=== PATIENT | female | born 1955 | race Caucasian/White ===

== ENCOUNTER → 2018-12-28 | Outpatient (CLI) | payer MEDICARE, BC ==
--- NOTE | 2018-12-28 10:18 | MR ---
EXAMINATION TYPE: MR brain wo/w con DATE OF EXAM: 12/28/2018 COMPARISON: None HISTORY: MS TECHNIQUE: Multiplanar, multisequence images of the brain and brainstem is performed without and with IV contras t, utilizing 7 mL intravenous Gadavist . FINDINGS: Diffusion weighted images demonstrate no evidence of a recent infarct or other diffusion ab normality. There is moderate Central dilation of ventricular system somewhat out of proportion to the sulci. Atr ophic changes with normal pressure hydrocephalus or hydrocephalus in the differential diagnosis. Thin homero of the corpus callosum. White matter: There are large areas of confluent abnormal signal surrounding both ventricles. There a re least to 35-40 focal lesions with the largest measuring approximately 1.2 cm in the right parietal lobe. There are no enhancing lesions. Midline structures demonstrate normal morphology. The craniocervical junction appears within normal limits. Post contrast images demonstrate no abnormal enhancement. The dural venous sinuses appear pa tent. Nasal septal deviation noted. Globes are intact. IMPRESSION: 1. Degenerative change with a greater central component correlate for normal pressure hydrocephalus o r hydrocephalus. 2. Diffuse nonspecific white matter changes. Differential diagnosis would include remote microvascula r ischemia as well as demyelinating disease. No enhancing lesions.
== END | disposition home or self-care (01) ==
LOC: RADMRIMAIN 08:39
PROVIDERS: ATTEND Psychiatry & Neurology Neurology
DX: G31.9 Degenerative disease of nervous system, unspecified (principal); R79.89 Other specified abnormal findings of blood chemistry; G35 Multiple sclerosis
CPT/HCPCS: 70553; A9585

== ENCOUNTER → 2019-01-03 | Outpatient (CLI) | payer MEDICARE, BC ==
--- NOTE | 2019-01-03 12:55 | CT ---
EXAMINATION TYPE: CT angio head neck DATE OF EXAM: 01/03/2019 HISTORY: Benign paroxysmal positional vertigo, MS COMPARISON: None CT DLP: 1307.40 mGycm. Automated Exposure Control for Dose Reduction was Utilized. TECHNIQUE: CTA scan of the neck is performed without and with IV Contrast, patient injected with 50 mL of Isovue 300, axial images are obtained, coronal and sagittal reformatted images are reviewed. Th ree-D reconstructed images are created on an independent workstation and reviewed. FINDINGS: Carotid/Vascular Structures: The transverse aorta, common carotid, innominate, left and right subclav brendan, left and right vertebral arteries are patent. Left vertebral artery is dominant. Internal and ex ternal carotid arteries are patent, no evidence stenosis. Vertebrobasilar system are patent. Anterior circulation patent. No evident embolus or aneurysm, no dissection. Other: Periventricular white matter shows patchy low attenuation. There is ventriculomegaly in accord ance with patient's atrophy. Cerebral vascular calcifications are present. IMPRESSION: Age-related changes of atrophy and probable chronic small vessel ischemia. If normal pre ssure hydrocephalus is suspected clinically then MRI may be of benefit.
== END | disposition home or self-care (01) ==
LOC: RADCTMAIN 08:52
PROVIDERS: ATTEND Psychiatry & Neurology Neurology
DX: G31.1 Senile degeneration of brain, not elsewhere classified (principal); H81.13 Benign paroxysmal vertigo, bilateral
CPT/HCPCS: 70496; 70498; Q9967

== ENCOUNTER 2019-07-28 17:16 | Emergency (ER) | payer BC, MEDICARE ==
[2019-07-28 18:34] VITALS: TEMP 98.6
[2019-07-28] MEDS ORDERED: SODIUM CHLORIDE 0.9% 500 ML 500 ML IV STA (19:13)
[2019-07-28] MEDS ORDERED: methylPREDNISolone SOD SUCCI 125 MG/2 ML VIAL IV STA ×2 (19:13→19:45)
[2019-07-28 19:43] LABS: Basophils # (A) 0.2 k/uL (0-0.2); Basophils % (A) 2 %; Eosinophils # (A) 0.1 k/uL (0-0.7); Eosinophils % (A) 1 %; HGB 14.6 gm/dL (11.4-16.0); Lymphocytes # (A) 0.2 k/uL (1.0-4.8); Lymphocytes % (A) 2 %; MCH 32.6 pg (25.0-35.0); MCHC 33.2 g/dL (31.0-37.0); MCV 98.3 fL (80.0-100.0); Mean Platelet Volume 10.1; Monocytes # (A) 0.4 k/uL (0-1.0); Monocytes % (A) 5 %; Neutrophils # (A) 7.8 k/uL (1.3-7.7); Neutrophils % (A) 89 %; Platelet Count 298 k/uL (150-450); RBC 4.48 m/uL (3.80-5.40); RDW 13.5 % (11.5-15.5); WBC 8.8 k/uL (3.8-10.6)
--- NOTE | 2019-07-28 19:48 | CT ---
EXAMINATION TYPE: CT brain wo con DATE OF EXAM: 07/28/2019 COMPARISON: 01/03/2019 HISTORY: Multiple sclerosis exacerbation, dizziness. CT DLP: 1096.4 mGycm Automated exposure control for dose reduction was used. There is cerebral cortical atrophy. There is some enlargement of the ventricles. There is mild hypode nsity in the periventricular white matter. Calvarium is intact. There is no mass effect nor midline s hift. There is no sign of intracranial hemorrhage. There is mild mucosal thickening in the sphenoid sinus. IMPRESSION: Cerebral atrophy. White matter hypodensity consistent with small vessel ischemia or demyelinating dis ease. No acute intracranial abnormality. Mild sphenoid sinusitis. No change compared to old exam.
[2019-07-28 19:57] LABS: Albumin 4.5 g/dL (3.5-5.0); Calcium 9.3 mg/dL (8.4-10.2); Magnesium 2.1 mg/dL (1.6-2.3); Phosphorus 3.6 mg/dL (2.5-4.5); Potassium 4.5 mmol/L (3.5-5.1); Total Bilirubin 0.4 mg/dL (0.2-1.3); Total Protein 7.4 g/dL (6.3-8.2)
[2019-07-28] MEDS ORDERED: SODIUM CHLORIDE 0.9% IVPB ONE (20:15)
[2019-07-28] MEDS ORDERED: METHYLPREDNISOLONE SOD SUCC IVPB ONE (20:15)
--- NOTE | 2019-07-28 21:09 | ED ---
General Adult HPI - General Chief complaint: Recheck/Abnormal Lab/Rx Stated complaint: MS flare up Time Seen by Provider: 07/28/19 18:55 Source: patient, RN notes reviewed, old records reviewed Mode of arrival: wheelchair Limitations: no limitations - History of Present Illness Initial comments: 63year-old female patient with past history significant for multiple sclerosis presents to the emergency department for she believes is a exacerbation of multiple sclerosis. Patient reports that since last night she has had dizziness, also reports that she feels as if her lower extremities are weaker than normal having difficulty walking. Patient does have some baseline urinary incontinence issues she believes this is gotten worse with the last 2 days. D enies any chest pain or shortness breath. Denies any pain at this time or any headache. Denies any other complaints at this time. Systemic: Pt denies fatigue, fever/chills, rash. Pt denies weakness, night sweats, weight loss. Neuro: Pt denies headache, visual disturbances, syncope or pre-syncope. HEENT: Pt denies ocular discharge or irritation, otalgia, rhinorrhea, pharyngitis or notable lymphadenopathy. Cardiopulmonary: Pt denies chest pain, SOB, heart palpitations, dyspnea on exertion. Abdominal/GI: Pt denies abdominal pain, n/v/d. : Pt denies dysuria, burning w/ urination, frequency/urgency. Denies new onset urinary or bowel incontinence. MSK: Pt denies myalgia, loss of strength or function in extremities. Neuro: Pt denies new onset weakness, paresthesias. - Related Data Home Medications Medication Instructions Recorded Confirmed Aspirin [Adult Low Dose Aspirin EC] 81 mg PO DAILY 06/07/17 06/09/17 Ampyra 10 mg PO DAILY 06/08/17 06/09/17 Cholecalciferol [Vitamin D3] 1,000 unit PO DAILY 06/08/17 06/09/17 Allergies Allergy/AdvReac Type Severity Reaction Status Date / Time No Known Allergies Allergy Verified 07/28/19 23:19 Review of Systems ROS Statement: Those systems with pertinent positive or pertinent negative responses have been documented in the HPI. ROS Other: All systems not noted in ROS Statement are negative. Past Medical History Past Medical History: Memory Impairment Additional Past Medical History / Comment(s): MULTIPLE SCLEROSIS History of Any Multi-Drug Resistant Organisms: None Reported Past Surgical History: Hysterectomy, Tonsillectomy Past Anesthesia/Blood Transfusion Reactions: No Reported Reaction Past Psychological History: No Psychological Hx Reported Smoking Status: Never smoker Past Alcohol Use History: None Reported Past Drug Use History: None Reported - Past Family History Mother Family Medical History: Cancer Additional Family Medical History / Comment(s): HODGKINS LYMPHOMA Father Family Medical History: Myocardial Infarction (ME) General Exam - General Exam Comments Initial Comments: Constitutional: NAD, AOX3, Pt has pleasant affect. HEENT: NC/AT, trachea midline, neck supple, no lymphadenopathy. Posterior pharynx non erythematous, without exudates. External ears appear normal, without discharge. Mucous membranes moist. Eyes PERRLA, EOM intact. There is no scleral icterus. No pallor noted. Cardiopulmonary: RRR, no murmurs, rubs or gallops, no JVD noted. Lungs CTAB in anterior and posterior moura. No peripheral edema. Abdominal exam: Abdomen soft and non-distended. Abdomen non-tender to palpation in all 4 quadrants. Bowel sounds active in LLQ. No hepatosplenomegaly. No ecchymosis Neuro: CN II-XII intact. No nuchal rigidity. No raccon eyes, no blank sign, no hemotympanum. No cervical spinal tenderness. NIH 0. MSK: 3/5 strength right lower extremity, 5 out of 5 strength left lower extremity upper extremities bilaterally. No posterior calf tenderness bilaterally, homans sign negative bilaterally. Posterior tibialis and radial pulse +2 bilaterally. Sensation intact in upper and lower extremities. Full active ROM in upper and lower extremities, 5/5 stregnth. Limitations: no limitations Course Vital Signs 07/28/19 18:31 Temperature 98.6 F Pulse Rate 103 H Respiratory 18 Rate Blood Pressure 170/83 O2 Sat by Pulse 97 Oximetry Medical Decision Making - Medical Decision Making 63-year-old female patient presents with history of multiple sclerosis presents to ED for which she believes is multiple scars exacerbation the last 24 hours. Patient has residual right lower extremity weakness presented this is worse. Having difficulty ambulating. Also complaining of some mild dizziness. Patient vital signs slight mild hypertension otherwise stable. Physical exam displayed 3-5 strength right lower extremity. Neurologic exam shows within normal limits. NIH is 0. Laboratory investigations are overall non-impressive. EKG nonischemic. CT of brain displayed cerebral atrophy, white matter hypodensity consistent with small vessel ischemia demyelinating disease. No acute intracranial abnormality. Mild sphenoid sinus sinusitis. No change compared to old exam. Patient came to have some difficulty and waning to his right lower extremity weakness. believes that he had difficulty inpatient activities of daily. Patient admitted for multiple sclerosis exacerbation. Started on antibiotics for sinusitis as well. Case discussed initially with Dr. Ivey and completed with Dr. Gutierrez. Multiple times to reach patient's neurologist were successful after decision of admission was made. Recommendation by Dr. Woods was 500 mg Solu-Medrol twice a day. - Lab Data Result diagrams: 07/28/19 19:07 07/28/19 19:07 Lab Results 07/28/19 07/28/19 07/28/19 Range/Units 19:07 19:07 19:07 WBC 8.8 (3.8-10.6) k/uL RBC 4.48 (3.80-5.40) m/uL Hgb 14.6 (11.4-16.0) gm/dL Hct 44.0 (34.0-46.0) % MCV 98.3 (80.0-100.0) fL MCH 32.6 (25.0-35.0) pg MCHC 33.2 (31.0-37.0) g/dL RDW 13.5 (11.5-15.5) % Plt Count 298 (150-450) k/uL Neutrophils % 89 % Lymphocytes % 2 % Monocytes % 5 % Eosinophils % 1 % Basophils % 2 % Neutrophils # 7.8 H (1.3-7.7) k/uL Lymphocytes # 0.2 L (1.0-4.8) k/uL Monocytes # 0.4 (0-1.0) k/uL Eosinophils # 0.1 (0-0.7) k/uL Basophils # 0.2 (0-0.2) k/uL Sodium 143 (137-145) mmol/L Potassium 4.5 (3.5-5.1) mmol/L Chloride 108 H (98-107) mmol/L Carbon Dioxide 28 (22-30) mmol/L Anion Gap 7 mmol/L BUN 25 H (7-17) mg/dL Creatinine 0.96 (0.52-1.04) mg/dL Est GFR (CKD-EPI)AfAm 73 (>60 ml/min/1.73 sqM) Est GFR (CKD-EPI)NonAf 63 (>60 ml/min/1.73 sqM) Glucose 105 H (74-99) mg/dL Calcium 9.3 (8.4-10.2) mg/dL Phosphorus 3.6 (2.5-4.5) mg/dL Magnesium 2.1 (1.6-2.3) mg/dL Total Bilirubin 0.4 (0.2-1.3) mg/dL AST 29 (14-36) U/L ALT 25 (4-34) U/L Alkaline Phosphatase 142 H (38-126) U/L Troponin I <0.012 (0.000-0.034) ng/mL Total Protein 7.4 (6.3-8.2) g/dL Albumin 4.5 (3.5-5.0) g/dL Disposition Clinical Impression: Multiple sclerosis exacerbation, Sinusitis Disposition: ADMITTED IP TO THIS HOSP Condition: Serious Is patient prescribed a controlled substance at d/c from ED?: No Referrals: Georgi Hernandez DO [Primary Care Provider] - 1-2 days
[2019-07-28] MEDS ORDERED: cefTRIAXone IN SWFI 1,000 MG/10 ML SYRINGE IVP STA (22:56)
[2019-07-28] MEDS ORDERED: ACETAMINOPHEN TAB 325 MG TAB PO PRN (22:57)
[2019-07-28] MEDS ORDERED: NALOXONE 0.4 MG/ML 1 ML VIAL IV PRN (22:57)
[2019-07-28] MEDS ORDERED: SODIUM CHLORIDE 0.9% 1,000 ML IV SCH (23:00)
[2019-07-28 23:23] VITALS: RESP 16
[2019-07-28 23:27] VITALS: BP 142/79; PULSE 80
[2019-07-29 00:06] LABS: Appearance,Urine Cloudy (Clear); Bacteria,Urine Few /hpf; Bilirubin,Urine Negative (Negative); Blood,Urine Trace (Negative); Color,Urine Light Yellow; Glucose,Urine (UA) Negative (Negative); Ketones,Urine 1+ (Negative); Leukocyte Esterase,Urine Small (Negative); Mucus,Urine Rare /hpf; Nitrite,Urine Positive (Negative); PH, Urine 6.5 (5.0-8.0); Protein,Urine Negative (Negative); RBC,Urine 3 /hpf (0-5); Specific Gravity,Urine 1.016 (1.001-1.035); Squamous Epithelial Cell,Urine 1 /hpf (0-4); Urobilinogen,Urine <2.0 mg/dL (<2.0); WBC,Urine 13 /hpf (0-5)
[2019-07-29] MEDS ORDERED: CEPHALEXIN 500 MG CAP PO STA (00:13)
[2019-07-29] MEDS ORDERED: CEPHALEXIN 500MG STARTER PACK 4 CAP BTL PO STA (00:13)
--- NOTE | 2019-07-29 00:13 | ED ---
Medical Decision Making - Medical Decision Making 62-year-old female patient presents ED for possible MS exacerbation. Patient was initially planned for [facility]. However patient is ambulatory without difficulty this time, requesting discharge. Contact was made with physician at patient neurologist office, however that time plan was for admission. She did recommend checking urine to ensure the urinary tract infection was not causing pseudo exacerbation. UA displayed nitrate positive urinary tract infection. CT brain displayed mild sinusitis, patient is not having symptoms from this. Offered patient and to recontact the ground's office they declined. Requesting discharge at this time. Patient discharged with prednisone and Keflex will follow-up with neurologist tomorrow. Return to ER if condition worsens. - Lab Data Result diagrams: 07/28/19 19:07 07/28/19 19:07 Lab Results 07/28/19 07/28/19 07/28/19 Range/Units 19:07 19:07 19:07 WBC 8.8 (3.8-10.6) k/uL RBC 4.48 (3.80-5.40) m/uL Hgb 14.6 (11.4-16.0) gm/dL Hct 44.0 (34.0-46.0) % MCV 98.3 (80.0-100.0) fL MCH 32.6 (25.0-35.0) pg MCHC 33.2 (31.0-37.0) g/dL RDW 13.5 (11.5-15.5) % Plt Count 298 (150-450) k/uL Neutrophils % 89 % Lymphocytes % 2 % Monocytes % 5 % Eosinophils % 1 % Basophils % 2 % Neutrophils # 7.8 H (1.3-7.7) k/uL Lymphocytes # 0.2 L (1.0-4.8) k/uL Monocytes # 0.4 (0-1.0) k/uL Eosinophils # 0.1 (0-0.7) k/uL Basophils # 0.2 (0-0.2) k/uL Sodium 143 (137-145) mmol/L Potassium 4.5 (3.5-5.1) mmol/L Chloride 108 H (98-107) mmol/L Carbon Dioxide 28 (22-30) mmol/L Anion Gap 7 mmol/L BUN 25 H (7-17) mg/dL Creatinine 0.96 (0.52-1.04) mg/dL Est GFR (CKD-EPI)AfAm 73 (>60 ml/min/1.73 sqM) Est GFR (CKD-EPI)NonAf 63 (>60 ml/min/1.73 sqM) Glucose 105 H (74-99) mg/dL Calcium 9.3 (8.4-10.2) mg/dL Phosphorus 3.6 (2.5-4.5) mg/dL Magnesium 2.1 (1.6-2.3) mg/dL Total Bilirubin 0.4 (0.2-1.3) mg/dL AST 29 (14-36) U/L ALT 25 (4-34) U/L Alkaline Phosphatase 142 H (38-126) U/L Troponin I <0.012 (0.000-0.034) ng/mL Total Protein 7.4 (6.3-8.2) g/dL Albumin 4.5 (3.5-5.0) g/dL Urine Color Urine Appearance (Clear) Urine pH (5.0-8.0) Ur Specific [place] (1.001-1.035) Urine Protein (Negative) Urine Glucose (UA) (Negative) Urine Ketones (Negative) Urine Blood (Negative) Urine Nitrite (Negative) Urine Bilirubin (Negative) Urine Urobilinogen (<2.0) mg/dL Ur Leukocyte Esterase (Negative) Urine RBC (0-5) /hpf Urine WBC (0-5) /hpf Ur Squamous Epith Cells (0-4) /hpf Urine Bacteria (None) /hpf Urine Mucus (None) /hpf 07/28/19 Range/Units 23:35 WBC (3.8-10.6) k/uL RBC (3.80-5.40) m/uL Hgb (11.4-16.0) gm/dL Hct (34.0-46.0) % MCV (80.0-100.0) fL MCH (25.0-35.0) pg MCHC (31.0-37.0) g/dL RDW (11.5-15.5) % Plt Count (150-450) k/uL Neutrophils % % Lymphocytes % % Monocytes % % Eosinophils % % Basophils % % Neutrophils # (1.3-7.7) k/uL Lymphocytes # (1.0-4.8) k/uL Monocytes # (0-1.0) k/uL Eosinophils # (0-0.7) k/uL Basophils # (0-0.2) k/uL Sodium (137-145) mmol/L Potassium (3.5-5.1) mmol/L Chloride (98-107) mmol/L Carbon Dioxide (22-30) mmol/L Anion Gap mmol/L BUN (7-17) mg/dL Creatinine (0.52-1.04) mg/dL Est GFR (CKD-EPI)AfAm (>60 ml/min/1.73 sqM) Est GFR (CKD-EPI)NonAf (>60 ml/min/1.73 sqM) Glucose (74-99) mg/dL Calcium (8.4-10.2) mg/dL Phosphorus (2.5-4.5) mg/dL Magnesium (1.6-2.3) mg/dL Total Bilirubin (0.2-1.3) mg/dL AST (14-36) U/L ALT (4-34) U/L Alkaline Phosphatase (38-126) U/L Troponin I (0.000-0.034) ng/mL Total Protein (6.3-8.2) g/dL Albumin (3.5-5.0) g/dL Urine Color Light Yellow Urine Appearance Cloudy H (Clear) Urine pH 6.5 (5.0-8.0) Ur Specific [place] 1.016 (1.001-1.035) Urine Protein Negative (Negative) Urine Glucose (UA) Negative (Negative) Urine Ketones 1+ H (Negative) Urine Blood Trace H (Negative) Urine Nitrite Positive H (Negative) Urine Bilirubin Negative (Negative) Urine Urobilinogen <2.0 (<2.0) mg/dL Ur Leukocyte Esterase Small H (Negative) Urine RBC 3 (0-5) /hpf Urine WBC 13 H (0-5) /hpf Ur Squamous Epith Cells 1 (0-4) /hpf Urine Bacteria Few H (None) /hpf Urine Mucus Rare H (None) /hpf Disposition Clinical Impression: Multiple sclerosis exacerbation, UTI (urinary tract infection) Disposition: HOME SELF-CARE Condition: Stable Instructions (If sedation given, give patient instructions): Multiple Sclerosis (DC), Urinary Tract Infection in Women (ED) Additional Instructions: Take antibiotics as directed. Take steroids as directed. Follow up with all this and primary care provider tomorrow. Return to ER if condition worsens. Prescriptions: Cephalexin [Keflex] 500 mg PO Q6HR 7 Days #28 cap predniSONE 50 mg PO DAILY #5 tab Is patient prescribed a controlled substance at d/c from ED?: No Referrals: Georgi Hernandez DO [Primary Care Provider] - 1-2 days
--- NOTE | 2019-07-29 00:16 | ED ---
Medical Decision Making - Lab Data Result diagrams: 07/28/19 19:07 07/28/19 19:07 Lab Results 07/28/19 07/28/19 07/28/19 Range/Units 19:07 19:07 19:07 WBC 8.8 (3.8-10.6) k/uL RBC 4.48 (3.80-5.40) m/uL Hgb 14.6 (11.4-16.0) gm/dL Hct 44.0 (34.0-46.0) % MCV 98.3 (80.0-100.0) fL MCH 32.6 (25.0-35.0) pg MCHC 33.2 (31.0-37.0) g/dL RDW 13.5 (11.5-15.5) % Plt Count 298 (150-450) k/uL Neutrophils % 89 % Lymphocytes % 2 % Monocytes % 5 % Eosinophils % 1 % Basophils % 2 % Neutrophils # 7.8 H (1.3-7.7) k/uL Lymphocytes # 0.2 L (1.0-4.8) k/uL Monocytes # 0.4 (0-1.0) k/uL Eosinophils # 0.1 (0-0.7) k/uL Basophils # 0.2 (0-0.2) k/uL Sodium 143 (137-145) mmol/L Potassium 4.5 (3.5-5.1) mmol/L Chloride 108 H (98-107) mmol/L Carbon Dioxide 28 (22-30) mmol/L Anion Gap 7 mmol/L BUN 25 H (7-17) mg/dL Creatinine 0.96 (0.52-1.04) mg/dL Est GFR (CKD-EPI)AfAm 73 (>60 ml/min/1.73 sqM) Est GFR (CKD-EPI)NonAf 63 (>60 ml/min/1.73 sqM) Glucose 105 H (74-99) mg/dL Calcium 9.3 (8.4-10.2) mg/dL Phosphorus 3.6 (2.5-4.5) mg/dL Magnesium 2.1 (1.6-2.3) mg/dL Total Bilirubin 0.4 (0.2-1.3) mg/dL AST 29 (14-36) U/L ALT 25 (4-34) U/L Alkaline Phosphatase 142 H (38-126) U/L Troponin I <0.012 (0.000-0.034) ng/mL Total Protein 7.4 (6.3-8.2) g/dL Albumin 4.5 (3.5-5.0) g/dL Urine Color Urine Appearance (Clear) Urine pH (5.0-8.0) Ur Specific [place] (1.001-1.035) Urine Protein (Negative) Urine Glucose (UA) (Negative) Urine Ketones (Negative) Urine Blood (Negative) Urine Nitrite (Negative) Urine Bilirubin (Negative) Urine Urobilinogen (<2.0) mg/dL Ur Leukocyte Esterase (Negative) Urine RBC (0-5) /hpf Urine WBC (0-5) /hpf Ur Squamous Epith Cells (0-4) /hpf Urine Bacteria (None) /hpf Urine Mucus (None) /hpf 07/28/19 Range/Units 23:35 WBC (3.8-10.6) k/uL RBC (3.80-5.40) m/uL Hgb (11.4-16.0) gm/dL Hct (34.0-46.0) % MCV (80.0-100.0) fL MCH (25.0-35.0) pg MCHC (31.0-37.0) g/dL RDW (11.5-15.5) % Plt Count (150-450) k/uL Neutrophils % % Lymphocytes % % Monocytes % % Eosinophils % % Basophils % % Neutrophils # (1.3-7.7) k/uL Lymphocytes # (1.0-4.8) k/uL Monocytes # (0-1.0) k/uL Eosinophils # (0-0.7) k/uL Basophils # (0-0.2) k/uL Sodium (137-145) mmol/L Potassium (3.5-5.1) mmol/L Chloride (98-107) mmol/L Carbon Dioxide (22-30) mmol/L Anion Gap mmol/L BUN (7-17) mg/dL Creatinine (0.52-1.04) mg/dL Est GFR (CKD-EPI)AfAm (>60 ml/min/1.73 sqM) Est GFR (CKD-EPI)NonAf (>60 ml/min/1.73 sqM) Glucose (74-99) mg/dL Calcium (8.4-10.2) mg/dL Phosphorus (2.5-4.5) mg/dL Magnesium (1.6-2.3) mg/dL Total Bilirubin (0.2-1.3) mg/dL AST (14-36) U/L ALT (4-34) U/L Alkaline Phosphatase (38-126) U/L Troponin I (0.000-0.034) ng/mL Total Protein (6.3-8.2) g/dL Albumin (3.5-5.0) g/dL Urine Color Light Yellow Urine Appearance Cloudy H (Clear) Urine pH 6.5 (5.0-8.0) Ur Specific [place] 1.016 (1.001-1.035) Urine Protein Negative (Negative) Urine Glucose (UA) Negative (Negative) Urine Ketones 1+ H (Negative) Urine Blood Trace H (Negative) Urine Nitrite Positive H (Negative) Urine Bilirubin Negative (Negative) Urine Urobilinogen <2.0 (<2.0) mg/dL Ur Leukocyte Esterase Small H (Negative) Urine RBC 3 (0-5) /hpf Urine WBC 13 H (0-5) /hpf Ur Squamous Epith Cells 1 (0-4) /hpf Urine Bacteria Few H (None) /hpf Urine Mucus Rare H (None) /hpf Disposition Clinical Impression: Multiple sclerosis exacerbation, UTI (urinary tract infection) Disposition: HOME SELF-CARE Condition: Stable Instructions (If sedation given, give patient instructions): Urinary Tract Infection in Women (ED), Multiple Sclerosis (DC) Additional Instructions: Take antibiotics as directed. Take steroids as directed. Follow up with neurologist and primary care provider tomorrow. Return to ER if condition worsens. Prescriptions: Cephalexin [Keflex] 500 mg PO Q6HR 7 Days #28 cap predniSONE 50 mg PO DAILY #5 tab Is patient prescribed a controlled substance at d/c from ED?: No Referrals: Georgi Hernandez DO [Primary Care Provider] - 1-2 days
== END 2019-07-29 00:57 | disposition home or self-care (01) ==
LOC: EC 17:16 → 6NMEDSUR 23:07 → UNDOADMOB 23:07 → EC 07-29 00:57
DX: G35 Multiple sclerosis (principal); J32.3 Chronic sphenoidal sinusitis; N39.0 Urinary tract infection, site not specified; G31.9 Degenerative disease of nervous system, unspecified; Z79.899 Other long term (current) drug therapy; Z79.82 Long term (current) use of aspirin
CPT/HCPCS: 99284; 96365; 96375 ×2; 96361; 36415; 93005; 80053; 83735; 84100; 84484; 85025; 81001; 70450; J2930 ×2; J0696

== ENCOUNTER 2020-10-11 07:29 | Emergency (ER) | payer MEDICARE ==
[2020-10-11 07:35] VITALS: BP 133/63; PULSE 109; RESP 18; TEMP 99
[2020-10-11] MEDS ORDERED: LIDOCAINE 1% INJ 10MG/ML (20 ML MDV) SQ ONE (07:54)
[2020-10-11] MEDS ORDERED: DIPH,PERTUS(ACELL)TETVAC-LF 0.5 ML VIAL IM ONE (07:54)
[2020-10-11] MEDS ORDERED: ceFAZolin 1,000 MG VIAL (IM USE) IM STA (08:11)
--- NOTE | 2020-10-11 08:39 | XR ---
EXAMINATION TYPE: XR elbow complete RT DATE OF EXAM: 10/11/2020 CLINICAL HISTORY: pain TECHNIQUE: Frontal, lateral and oblique images of the right elbow are obtained. COMPARISON: None. FINDINGS: There is no acute fracture/dislocation evident of the elbow. No abnormal fat pad signs ar e seen. Soft tissue ulcerations seen dorsally. IMPRESSION: There is no acute fracture or dislocation of the elbow. ICD 10 NO FRACTURE, INITIAL EVALUATION
[2020-10-11] MEDS ORDERED: HYDROcodone/APAP 5-325MG 1 EACH TAB PO STA (08:52)
--- NOTE | 2020-10-11 08:55 | CT ---
EXAMINATION TYPE: CT brain diana miramontes con DATE OF EXAM: 10/11/2020 COMPARISON: 07/28/2019 HISTORY: Fall CT DLP: 1457.[address] of the brain was performed. The ventricles, basal cisterns and sulci overlying the cerebral convexities demonstrate moderate enla rgement. There is no evidence for intracranial hemorrhage or sulcal effacement. There is decreased attenuatio n about the periventricular white matter and deep white matter of both cerebral hemispheres, compatib le with chronic small vessel ischemia. No mass effects are seen. If symptoms persist consider MRI. Osseous calvarium is intact. IMPRESSION: 1. Age related atrophic and chronic small vessel ischemic change without acute intracranial process seen at this time. CT Cervical Spine: Unenhanced CT of the cervical spine was performed with bone and soft tissue window settings submitted . Coronal and sagittal reconstruction is obtained. There is normal alignment and prevertebral soft tissues. No evidence for acute cervical fracture . Scattered degenerative disc disease and spondylosis. Biapical scarring. IMPRESSION: 1. No evidence for acute fracture or subluxation of the cervical spine.
[2020-10-11] MEDS ORDERED: BACITRACIN OINT 1 EACH PACKET TOPICAL ONE (09:42)
--- NOTE | 2020-10-11 09:44 | ED ---
Wound/Laceration HPI - General Chief Complaint: Wound/Laceration Stated Complaint: Fall, R arm injury Time Seen by Provider: 10/11/20 07:39 Source: patient, family Mode of arrival: wheelchair Limitations: no limitations - History of Present Illness Initial Comments: 65-year-old female presenting for chief complaint of fall with right elbow laceration. Patient states that she has MS and often trips when she walks. She states she tripped falling she states she didn't believe she had her head but mostly caught her elbow. She states she sustained a laceration. She states she can fully range without difficulty at the right elbow but her felt that the laceration needed repair he applied a bandage and presents emergency room for evaluation. Patient states that she did hit her head, she denies loss of consciousness or use of anticoagulation therapy Patient is unsure of her last tetanus. She denies any nausea vomiting visual changes headache dizziness weakness or sensation deficits. She denies any neck pain. She denies any other areas of extremity injury or pain. Upon arrival patient appears well nontoxic in no acute distress - Related Data Home Medications Medication Instructions Recorded Confirmed Aspirin EC [Ecotrin] 325 mg PO DAILY 07/28/19 07/28/19 Dalfampridine [Dalfampridine ER] 10 mg PO Q12H 07/28/19 07/28/19 Multivitamins, Thera [Multivitamin 1 tab PO DAILY 07/28/19 07/28/19 (formulary)] Oxybutynin Chloride [Oxybutynin 15 mg PO DAILY 07/28/19 07/28/19 Chloride ER] Previous Rx's Medication Instructions Recorded Cephalexin [Keflex] 500 mg PO Q6HR 7 Days #28 cap 07/29/19 predniSONE 50 mg PO DAILY #5 tab 07/29/19 Cephalexin [Keflex] 500 mg PO Q8HR 7 Days #21 cap 10/11/20 Allergies Allergy/AdvReac Type Severity Reaction Status Date / Time No Known Allergies Allergy Verified 07/28/19 23:19 Review of Systems ROS Statement: Those systems with pertinent positive or pertinent negative responses have been documented in the HPI. ROS Other: All systems not noted in ROS Statement are negative. Past Medical History Past Medical History: Memory Impairment Additional Past Medical History / Comment(s): MULTIPLE SCLEROSIS History of Any Multi-Drug Resistant Organisms: None Reported Past Surgical History: Hysterectomy, Tonsillectomy Past Anesthesia/Blood Transfusion Reactions: No Reported Reaction Past Psychological History: No Psychological Hx Reported Smoking Status: Never smoker Past Alcohol Use History: None Reported Past Drug Use History: None Reported - Past Family History Mother Family Medical History: Cancer Additional Family Medical History / Comment(s): HODGKINS LYMPHOMA Father Family Medical History: Myocardial Infarction ([place]) General Exam - General Exam Comments Initial Comments: General: The patient is awake and alert, in no distress Eye: +3 mm pupils are equal, round and reactive to light, extra-ocular movements are intact. No nystagmus. There is normal conjunctiva bilaterally. No signs of icterus. Ears, nose, mouth and throat: There are moist mucous membranes and no oral lesions. Neck: The neck is supple, there is no tenderness or JVD. No midline tenderness to palpation of the cervical spine Cardiovascular: There is a regular rate and rhythm. No murmur, rub or gallop is appreciated. Respiratory: Lungs are clear to auscultation, respirations are non-labored, breath sounds are equal. No wheezes, stridor, rales, or rhonchi. Gastrointestinal: Soft, non-distended, non-tender abdomen without masses or organomegaly noted. There is no rebound or guarding present. Musculoskeletal: Normal ROM of the elbows and shoulder/wrists b/l-pain at only laceration site with ROM fo the right elbow. Strength 5/5. Sensation intact. radial and DP pulses equal bilaterally 2+. Neurological: A&O x 3. CN II-XII intact, There are no obvious motor or sensory deficits. Coordination appears grossly intact. Speech is normal. Skin: Skin is warm and dry and no rashes or lesions are noted. Psychiatric: Cooperative, appropriate mood & affect, normal judgment. Limitations: no limitations Course Vital Signs 10/11/20 07:30 Temperature 99.0 F Pulse Rate 109 H Respiratory 18 Rate Blood Pressure 133/63 O2 Sat by Pulse 97 Oximetry Procedures - Laceration Laceration #1 Consent Obtained: verbal consent Indication: laceration Site: upper extremity Size (cm): 6 Description: flap, irregular Depth: simple, single layer Anesthetic Used: lidocaine 1% Anesthesia Technique: local infiltration Amount (mls): 2 Pre-repair: wound explored, irrigated extensively, deep structures intact Type of Sutures: nylon Size of Sutures: 4-0 Number of Sutures: 11 Technique: simple, interrupted Patient Tolerated Procedure: well, no complications Medical Decision Making - Medical Decision Making IM antibiotics initiated as patient has laceration site over joint until confirmed no open fracture. X-ray revealed no acute fracture at laceration site. Area was irrigated extensively. Tetanus was updated. Wound edges were approximated using 11 4. 0 nylon sutures. Patient tolerated procedure well. As patient states she did hit her head CT of brain was obtained CT without contrast of the head and cervical spine revealed no acute intracranial or cervical spine process. At this time I feel patient is stable for discharge with outpatient primary care follow-up and return for suture removal. Patient is agreeable to this care plan is aware of the signs of infection which were discussed-- pt started on prophylactic antibiotics. Sling for comfort Disposition Clinical Impression: Laceration of elbow, right, Right elbow pain, Fall Disposition: HOME SELF-CARE Condition: Good Instructions (If sedation given, give patient instructions): Care For Your Stitches (ED), Laceration (ED) Additional Instructions: Please use medication as discussed. Please follow-up with family doctor in the next 2 days, please return for suture removal in 7-10 days. Please return to emergency room if the symptoms increase or worsen or for any other concerns. Prescriptions: Cephalexin [Keflex] 500 mg PO Q8HR 7 Days #21 cap Is patient prescribed a controlled substance at d/c from ED?: No Referrals: Georgi Hernandez DO [Primary Care Provider] - 1-2 days Time of Disposition: 09:44
== END 2020-10-11 10:13 | disposition home or self-care (01) ==
LOC: EC 07:29
DX: S51.011A Laceration without foreign body of right elbow, initial encounter (principal); Z79.899 Other long term (current) drug therapy; Z79.82 Long term (current) use of aspirin; W01.0XXA Fall on same level from slipping, tripping and stumbling without subsequent striking against object, initial encounter; Y93.01 Activity, walking, marching and hiking
CPT/HCPCS: 73080; 72125; 70450; 99283; 12002; 96372; J0690; J2001

== ENCOUNTER → 2020-11-26 | Outpatient (CLI) | payer MEDICARE ==
--- NOTE | 2020-11-27 08:01 | XR ---
EXAMINATION TYPE: XR shoulder complete LT DATE OF EXAM: 11/26/2020 COMPARISON: NONE HISTORY: Pain TECHNIQUE: Three views are submitted. FINDINGS: Questionable linear lucency involving the greater tuberosity recommend CT scan.. The AC joint arthro marguerite noted. Calcified granuloma within the lung.. IMPRESSION: 1. Cannot exclude a hairline fracture involving the greater tuberosity recommend CT scan. 2. AC joint arthropathy.
== END | disposition home or self-care (01) ==
LOC: RADXRYALE 16:49
PROVIDERS: ATTEND Family Medicine
DX: M19.012 Primary osteoarthritis, left shoulder (principal)

== ENCOUNTER 2021-10-04 17:08 | Inpatient (IN) | payer MEDICARE ==
[2021-10-04] MEDS ORDERED: SODIUM CHLORIDE 0.9% 500 ML 500 ML IV ONE (17:37)
--- NOTE | 2021-10-04 18:06 | CT ---
EXAMINATION TYPE: CT brain wo con CT DLP: 1099.4 mGycm, Automated exposure control for dose reduction was used. DATE OF EXAM: 10/04/2021 5:58 PM COMPARISON: Prior CT Brain from 10/11/2020. . CLINICAL INDICATION:Female, 66 years old with history of weakness, Pt states MS attack, weakness, diz ziness TECHNIQUE: Brain: Multiple axial CT images of the brain were obtained without IV contrast. FINDINGS: Brain: Extra-axial spaces: No abnormal extra-axial fluid collections. Ventricular system: Dilatation in proportion to cerebral atrophy. Cerebral parenchyma: Cerebral atrophy. No acute intraparenchymal hemorrhage or mass effect. The murphy -white junction is well differentiated. Scattered hypoattenuating areas are seen within the white mat ter. Cerebellum: Unremarkable. Mass effect: No evidence of midline shift. Intracranial vasculature: unremarkable Soft tissues: Normal. Calvarium/osseous structures: No depressed skull fracture. Paranasal sinuses and mastoid air cells: Mild scattered paranasal sinus disease. Visualized orbits: Orbital contents are intact. IMPRESSION: 1. No acute intracranial process. 2. Nonspecific white matter changes, likely secondary to patient's known history of MS.
[2021-10-04 18:08] LABS: Glucose,Whole Blood 146 mg/dL (75-99)
--- NOTE | 2021-10-04 18:11 | ED ---
General Adult HPI - General Chief complaint: Weakness Stated complaint: Weakness/Syncope Time Seen by Provider: 10/04/21 17:55 Source: patient, family, EMS, RN notes reviewed, old records reviewed Mode of arrival: EMS Limitations: language barrier - History of Present Illness Initial comments: 66-year-old female, alert and oriented 4, presents to the emergency room with her son complaining of weakness that started last night progressively worsening in her right leg. Patient does have a history of MS with right leg weakness. She had 2 falls today with complaints of dizziness that resolves when she closes her eyes. She did not hit her head or lose consciousness. She has bruising to bilateral knees, right thigh and right upper arm. She denies any pain at this time. States this feels like an exacerbation of her MS. Her last hospitalization for MS was July 2019. -: days(s) (1) Location: left, right, lower extremity Severity scale (1-10): 0 Associated Symptoms: other (dizziness) Treatments Prior to Arrival: none - Related Data Home Medications Medication Instructions Recorded Confirmed Dalfampridine [Dalfampridine ER] 10 mg PO Q12H 07/28/19 10/04/21 Ofatumumab [Kesimpta Pen] 20 mg SQ Q30D 10/04/21 10/04/21 Allergies Allergy/AdvReac Type Severity Reaction Status Date / Time No Known Allergies Allergy Verified 10/04/21 18:28 Review of Systems ROS Statement: Those systems with pertinent positive or pertinent negative responses have been documented in the HPI. ROS Other: All systems not noted in ROS Statement are negative. Past Medical History Past Medical History: Memory Impairment Additional Past Medical History / Comment(s): MULTIPLE SCLEROSIS History of Any Multi-Drug Resistant Organisms: None Reported Past Surgical History: Hysterectomy, Tonsillectomy Past Anesthesia/Blood Transfusion Reactions: No Reported Reaction Past Psychological History: No Psychological Hx Reported Smoking Status: Never smoker Past Alcohol Use History: None Reported Past Drug Use History: None Reported - Past Family History Mother Family Medical History: Cancer Additional Family Medical History / Comment(s): HODGKINS LYMPHOMA Father Family Medical History: Myocardial Infarction ([place]) General Exam Limitations: language barrier General appearance: alert, in no apparent distress Head exam: Present: atraumatic, normocephalic, normal inspection Eye exam: Present: normal appearance, EOMI. Absent: scleral icterus, conjunctival injection, nystagmus, periorbital swelling, periorbital tenderness ENT exam: Present: normal exam, normal oropharynx, mucous membranes moist Neck exam: Present: normal inspection, full ROM. Absent: tenderness, meningismus, lymphadenopathy, thyromegaly Respiratory exam: Present: normal lung sounds bilaterally. Absent: respiratory distress, wheezes, rales, rhonchi, stridor, chest wall tenderness, decreased breath sounds Cardiovascular Exam: Present: normal rhythm, tachycardia, normal heart sounds. Absent: JVD GI/Abdominal exam: Present: soft. Absent: distended, tenderness Extremities exam: Present: normal capillary refill, other (Bruising to bilateral knees). Absent: tenderness, pedal edema, calf tenderness Back exam: Present: normal inspection, full ROM. Absent: tenderness, CVA tenderness (R), CVA tenderness (L), muscle spasm, paraspinal tenderness, vertebral tenderness, rash noted Neurological exam: Present: alert, oriented X3, CN II-XII intact Expanded Patient oriented to: Present: person, place, time Speech: Present: fluid speech Cranial nerves: EOM's Intact: Normal, Gag Reflex: Normal, Tongue Deviation: Normal Cerebellar function: Finger to Nose: Normal, Heel to Rojas: Abnormal Right, Abnormal Left (Inability to lift the legs against gravity) Upper motor neuron: [place] Neglect: Normal, Pronator Drift: Normal Sensory exam: Upper Extremity Light Touch: Normal, Upper Extremity Temperature: Normal, Lower Extremity Light Touch: Normal, Lower Extremity Temperature: Normal Motor strength exam: RUE: 5, LUE: 5, RLE: 2/1, LLE: 2/1 Eye Response: (4) open spontaneously Motor Response: (6) obeys commands Verbal Response: (5) oriented Anh Total: 15 Psychiatric exam: Present: normal affect, normal mood Skin exam: Present: warm, dry, intact, normal color. Absent: rash, cyanosis, diaphoretic, pallor Course Vital Signs 10/04/21 10/04/21 17:24 18:51 Temperature 98.5 F 98.6 F Pulse Rate 100 95 Respiratory 12 14 Rate Blood Pressure 147/82 141/74 O2 Sat by Pulse 98 98 Oximetry EKG Findings - EKG Results: EKG: sinus rhythm (Ventricular rate 100, VT interval 0.211, QRS 0.83, QTC 0.403; VT interval prolonged compared to old EKG 07/28/2019) Medical Decision Making - Medical Decision Making 66-year-old female patient presents with progressing right leg weakness and dizziness that started yesterday. Patient fell twice related to her weakness. She states this feels like an exacerbation of her MS. Last exacerbation was July 2019. CT brain without contrast shows no acute intracranial process. There is nonspecific white matter changes secondary to patient's known history of MS. CT angiogram shows no evidence of high-grade stenosis or intracranial aneurysm. No mass or midline shift. Arteries appear patent. Labs show leukopenia with a white count of 1.0. Her vital signs are stable. EKG shows sinus rhythm with a new first-degree AV block compared to old EKG dated July 2019. Troponin is negative at 0.012. I did speak with Dr. Leal who recommended admission, he will see her in the morning. Directed to give 1 dose of Solu-Medrol 500mg. Patient in a agreeable to this plan of care. Case discussed with Dr. Del Valle - Lab Data Result diagrams: 10/04/21 17:52 10/04/21 17:52 Lab Results 10/04/21 10/04/21 10/04/21 Range/Units 17:52 17:52 17:52 WBC 1.0 L* (3.8-10.6) k/uL RBC 4.47 (3.80-5.40) m/uL Hgb 14.2 (11.4-16.0) gm/dL Hct 43.7 (34.0-46.0) % MCV 97.8 (80.0-100.0) fL MCH 31.9 (25.0-35.0) pg MCHC 32.6 (31.0-37.0) g/dL RDW 13.3 (11.5-15.5) % Plt Count 268 (150-450) k/uL MPV 7.7 Neutrophils # ANCHORER Manual Slide Review Performed PT 10.7 (9.0-12.0) sec INR 1.0 (<1.2) APTT 22.4 (22.0-30.0) sec Sodium 139 (137-145) mmol/L Potassium 4.0 (3.5-5.1) mmol/L Chloride 104 (98-107) mmol/L Carbon Dioxide 25 (22-30) mmol/L Anion Gap 10 mmol/L BUN 14 (7-17) mg/dL Creatinine 0.84 (0.52-1.04) mg/dL Est GFR (CKD-EPI)AfAm 84 (>60 ml/min/1.73 sqM) Est GFR (CKD-EPI)NonAf 73 (>60 ml/min/1.73 sqM) Glucose 163 H (74-99) mg/dL POC Glucose (mg/dL) (75-99) mg/dL POC Glu Accounting Lecturer ID Plasma Lactic Acid Peng (0.7-2.0) mmol/L Calcium 9.0 (8.4-10.2) mg/dL Magnesium 2.1 (1.6-2.3) mg/dL Total Bilirubin 0.7 (0.2-1.3) mg/dL AST 24 (14-36) U/L ALT 18 (4-34) U/L Alkaline Phosphatase 121 (38-126) U/L Troponin I (0.000-0.034) ng/mL Total Protein 7.1 (6.3-8.2) g/dL Albumin 4.4 (3.5-5.0) g/dL 10/04/21 10/04/21 10/04/21 Range/Units 17:52 17:52 18:07 WBC (3.8-10.6) k/uL RBC (3.80-5.40) m/uL Hgb (11.4-16.0) gm/dL Hct (34.0-46.0) % MCV (80.0-100.0) fL MCH (25.0-35.0) pg MCHC (31.0-37.0) g/dL RDW (11.5-15.5) % Plt Count (150-450) k/uL MPV Neutrophils # Manual Slide Review PT (9.0-12.0) sec INR (<1.2) APTT (22.0-30.0) sec Sodium (137-145) mmol/L Potassium (3.5-5.1) mmol/L Chloride (98-107) mmol/L Carbon Dioxide (22-30) mmol/L Anion Gap mmol/L BUN (7-17) mg/dL Creatinine (0.52-1.04) mg/dL Est GFR (CKD-EPI)AfAm (>60 ml/min/1.73 sqM) Est GFR (CKD-EPI)NonAf (>60 ml/min/1.73 sqM) Glucose (74-99) mg/dL POC Glucose (mg/dL) 146 H (75-99) mg/dL POC Glu Accounting Lecturer NERY Trinh Ortiz Plasma Lactic Acid Peng 1.3 (0.7-2.0) mmol/L Calcium (8.4-10.2) mg/dL Magnesium (1.6-2.3) mg/dL Total Bilirubin (0.2-1.3) mg/dL AST (14-36) U/L ALT (4-34) U/L Alkaline Phosphatase (38-126) U/L Troponin I <0.012 (0.000-0.034) ng/mL Total Protein (6.3-8.2) g/dL Albumin (3.5-5.0) g/dL Disposition Clinical Impression: Leukopenia, Exacerbation of multiple sclerosis Disposition: ADMITTED IP TO THIS HOSP Referrals: Georgi Hernandez DO [Primary Care Provider] - 1-2 days Decision Date: 10/04/21 Decision Time: 19:45
[2021-10-04 18:14] LABS: Albumin 4.4 g/dL (3.5-5.0); Magnesium 2.1 mg/dL (1.6-2.3); Total Bilirubin 0.7 mg/dL (0.2-1.3); Total Protein 7.1 g/dL (6.3-8.2)
[2021-10-04 18:22] LABS: HCT 43.7 % (34.0-46.0); HGB 14.2 gm/dL (11.4-16.0); MCH 31.9 pg (25.0-35.0); MCHC 32.6 g/dL (31.0-37.0); MCV 97.8 fL (80.0-100.0); Mean Platelet Volume 7.7; Platelet Count 268 k/uL (150-450); RBC 4.47 m/uL (3.80-5.40); RDW 13.3 % (11.5-15.5)
--- NOTE | 2021-10-04 18:22 | XR ---
EXAMINATION TYPE: XR chest 2V DATE OF EXAM: 10/04/2021 6:11 PM COMPARISON:None TECHNIQUE: XR chest 2V Frontal and lateral views of the chest. CLINICAL INDICATION:Female, 66 years old with history of Weakness; FINDINGS: Lungs/Pleura: Low lung volumes are present. There is no evidence of pleural effusion, focal consolida tion, or pneumothorax. Calcified granuloma in left lower lung. Pulmonary vascularity: Unremarkable. Heart/mediastinum: Cardiomediastinal silhouette is prominent in size. Musculoskeletal: No acute osseous pathology. IMPRESSION: No acute cardiopulmonary disease/process.
[2021-10-04 18:25] LABS: Partial Thromboplastin Time 22.4 sec (22.0-30.0); Prothrombin Time 10.7 sec (9.0-12.0)
--- NOTE | 2021-10-04 19:42 | CT ---
EXAMINATION TYPE: CT angio head CT DLP: 1014.8 mGycm, Automated exposure control for dose reduction was used. DATE OF EXAM: 10/04/2021 7:26 PM COMPARISON: CT without contrast 1921.. CLINICAL INDICATION:Female, 66 years old with history of pain, blurred vision, near syncope, Pain, bl urred vision, near syncope, weakness, Hx MS. TECHNIQUE: Axially acquired helical CT angiogram of the head and neck was obtained with contrast util izing 75 cc of Isovue-370 administered intravenously. Axial images are supplemented with 3D reconstru ctions which were post-processed at an independent workstation. NASCET criteria used. FINDINGS: No evidence of acute intracranial hemorrhage, mass effect, or midline shift. The ventricles, sulci, a nd cisterns are unremarkable. The visualized portions of the internal carotid arteries, middle cerebral arteries, anterior cerebral arteries, and posterior cerebral arteries are patent. Atherosclerosis of the intracranial carotid ar teries. The basilar and vertebral arteries are patent. Dominant left vertebral artery. IMPRESSION: No evidence of high-grade stenosis or intracranial aneurysm.
[2021-10-04] MEDS ORDERED: methylPREDNISolone SOD SUCCIN 500 MG in SODIUM CHLORIDE 0.9% 100 ML IVPB STA (19:49)
[2021-10-04] MEDS ORDERED: NALOXONE 0.4 MG/ML 1 ML VIAL IV PRN ×2 (20:01→21:09)
[2021-10-04] MEDS ORDERED: ACETAMINOPHEN TAB 325 MG TAB PO PRN (20:01)
[2021-10-04 23:12] LABS: Appearance,Urine Cloudy (Clear); Bacteria,Urine Rare /hpf; Bilirubin,Urine Negative (Negative); Blood,Urine Trace (Negative); Color,Urine Yellow; Glucose,Urine (UA) Negative (Negative); Ketones,Urine Trace (Negative); Leukocyte Esterase,Urine Negative (Negative); Nitrite,Urine Negative (Negative); PH, Urine 7.5 (5.0-8.0); Protein,Urine Trace (Negative); RBC,Urine 4 /hpf (0-5); Urobilinogen,Urine <2.0 mg/dL (<2.0); WBC,Urine 1 /hpf (0-5)
[2021-10-04 23:13] LABS: Specific Gravity,Urine >1.050 (1.001-1.035)
--- NOTE | 2021-10-05 01:14 | P.HPIM ---
History of Present Illness H&P Date: 10/04/21 Chief Complaint: dizziness 66 year old female with MS patient comes in with complaints of dizziness for couple days , she reports couple episodes of falling the past few days with no head injury or loss of consciousness. she is not on any blood thinners or blood pressure medications. she also noticed right leg weakness which are all typical of her MS flare up attacks . she denies any URI symptoms , UTI symptoms, abd pain nausea or vomiting, denies any chest pain or trouble breathing imaging in the ED, CT brain and CTA head and neck no acute pathology . blood work showed leukopenia , which the patient is not aware of case discussed with neurology by ED doc ,and she was started on steroids Review of Systems Pertinent positives as noted in HPI. All other systems were reviewed and are negative Past Medical History Past Medical History: Memory Impairment Additional Past Medical History / Comment(s): MULTIPLE SCLEROSIS History of Any Multi-Drug Resistant Organisms: None Reported Past Surgical History: Hysterectomy, Tonsillectomy Past Anesthesia/Blood Transfusion Reactions: No Reported Reaction Past Psychological History: No Psychological Hx Reported Smoking Status: Never smoker Past Alcohol Use History: None Reported Past Drug Use History: None Reported - Past Family History Mother Family Medical History: Cancer Additional Family Medical History / Comment(s): HODGKINS LYMPHOMA Father Family Medical History: Myocardial Infarction ([place]) Medications and Allergies Home Medications Medication Instructions Recorded Confirmed Type Dalfampridine [Dalfampridine ER] 10 mg PO Q12H 07/28/19 10/04/21 History Ofatumumab [Kesimpta Pen] 20 mg SQ Q30D 10/04/21 10/04/21 History Allergies Allergy/AdvReac Type Severity Reaction Status Date / Time No Known Allergies Allergy Verified 10/04/21 18:28 Physical Exam Vitals: Vital Signs Temp Pulse Resp BP Pulse Ox 10/04/21 22:00 94 18 140/81 95 10/04/21 18:51 98.6 F 95 14 141/74 98 10/04/21 17:24 98.5 F 100 12 147/82 98 Intake and Output 10/04/21 10/04/21 10/05/21 14:59 22:59 06:59 Other: Weight 72.575 kg 72.575 kg Constitutional: No acute distress, conversant, pleasant Eyes: Anicteric sclerae, moist conjunctiva, Pupils equal round reactive to light ENMT: NC/AT Oropharynx clear, no erythema, or exudates Neck: Supple, no masses, or JVD No carotid bruits No thyromegaly Lungs: Clear to auscultation Clear to percussion Normal respiratory effort, no accessory muscle use Cardiovascular: Heart regular in rate and rhythm, No murmurs, gallops, or rubs No peripheral edema Abdominal: Soft Nontender, no guarding, rebound or rigidity Abdomen moving with respiration Normoactive bowel sounds No hepatomegaly, No splenomegaly No palpable mass No abdominal wall hernia noted Skin: Normal temperature, tone, texture, turgor No induration No subcutaneous nodules No rash, lesions No ulcers Extremities: No digital cyanosis No clubbing Pedal pulses intact and symmetrical Radial pulses intact and symmetrical No calf tenderness Psychiatric: Alert and oriented to person, place and time Appropriate affect fair judgement Neuro Muscles Strength 4/5 in bilateral upper extremities, and left lower extremity , however significantly weaker on the right lower extremity Sensation to light touch grossly present throughout Cranial nerves II-XII grossly intact No focal sensory deficits Lymphatics: no palpable cervical or supraclavicular , or inguinal lymph nodes Results CBC & Chem 7: 10/04/21 17:52 10/04/21 17:52 Labs: Abnormal Lab Results - Last 24 Hours (Table) 10/04/21 10/04/21 10/04/21 Range/Units 17:52 17:52 18:07 WBC 1.0 L* (3.8-10.6) k/uL Glucose 163 H (74-99) mg/dL POC Glucose (mg/dL) 146 H (75-99) mg/dL Urine Appearance (Clear) Ur Specific [place] (1.001-1.035) Urine Protein (Negative) Urine Ketones (Negative) Urine Blood (Negative) Urine Bacteria (None) /hpf 10/04/21 Range/Units 22:29 WBC (3.8-10.6) k/uL Glucose (74-99) mg/dL POC Glucose (mg/dL) (75-99) mg/dL Urine Appearance Cloudy H (Clear) Ur Specific [place] >1.050 H (1.001-1.035) Urine Protein Trace H (Negative) Urine Ketones Trace H (Negative) Urine Blood Trace H (Negative) Urine Bacteria Rare H (None) /hpf Thrombosis Risk Factor Assmnt - Choose All That Apply Each Factor Represents 1 point: Obesity (BMI >25) Each Risk Factor Represents 2 Points: Age 61-74 years, Patient confined to bed Thrombosis Risk Factor Assessment Total Risk Factor Score: 5 Thrombosis Risk Factor Assessment Level: High Risk Assessment and Plan Assessment: acute MS flare up frequent falling PT eval fall precautions CT brain and CTA head and neck no acute pathology monitor vital signs neuro checks neurology consult initiated on steroids leukopenia unknown underlying cause recheck CBC in AM if persistent , then consider hematology consult full code heparin sc tid , DVT PPX anticipated length of stay < 2 midnights
--- NOTE | 2021-10-05 09:30 | P.CNNES ---
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 She denies of loss of consciousness or head trauma with these falls. Patient is not a great historian because of her underlying cognitive impairment and dementia. As a result of falls she has bruises over the the right side of the body as well as a bilateral knees. Regarding the dizziness she says resolved when she closes her eyes. She states that her symptoms are similar to her MS exacerbation in the past and she was last hospitalized for MS was in July 2019. Patient stated that she has a diagnosis of multiple sclerosis for last 20 years and stated the recently she is been having worsening of the right-sided weakness and falls. She has not seen her neurologist over the past 1 year. Patient denies of any visual disturbance, any numbness or tingling that he knew, any weakness of the upper extremity at. She denies of any headache currently right now. Patient is on Ofatumumba 20mg once a month and Dalfampridine ER 10mg ER every 12 hours for her Multiple Sclerosis. Patient could not tell me what other disease modifying medication she was on in the past. She notified me that "you have to ask my once she gets here". Some of the work-up in the hospital consisted of: Initial vital signs is blood pressure of 147/82 otherwise heart rate of 100, respiratory of 12, pulse ox 98 on nasal cannula and temperature of 98.5 Fahrenheit oral. Initial white blood cell is 1.0 otherwise and his rest of the CBC is unremarkable Chemistry panel is unremarkable AST and ALT is within normal limits. Calcium magnesium is within normal limits Urinalysis is negative for urinary tract infection. CT of the head is reported as no acute intracranial process. Nonspecific white matter change likely secondary to the patient known history of MS. I personally reviewed the CT of the head and I agree with the report in addition I feel the patient's ventricles throughout lateral third and fourth ventricle are dilated especially the posterior lateral ventricle compared to the atrophy possibly suggestive of normal pressure hydrocephalus.. CT angiography of the head and neck was reported as no evidence of high-grade the stenosis or intracranial aneurysm. I spoke with the ED team yesterday and notified them to give patient on time dose of IV Solu-Medrol 500mg and I will access in the morning. Review of Systems Review of system: The 12 point system was reviewed and apparent positive and negative per HPI. Past Medical History Past Medical History: Memory Impairment Additional Past Medical History / Comment(s): MULTIPLE SCLEROSIS History of Any Multi-Drug Resistant Organisms: None Reported Past Surgical History: Hysterectomy, Tonsillectomy Past Anesthesia/Blood Transfusion Reactions: No Reported Reaction Past Psychological History: No Psychological Hx Reported Smoking Status: Never smoker Past Alcohol Use History: None Reported Past Drug Use History: None Reported - Past Family History Mother Family Medical History: Cancer Additional Family Medical History / Comment(s): HODGKINS LYMPHOMA Father Family Medical History: Myocardial Infarction ([place]) Medications and Allergies Home Medications Medication Instructions Recorded Confirmed Type Dalfampridine [Dalfampridine ER] 10 mg PO Q12H 07/28/19 10/04/21 History Ofatumumab [Kesimpta Pen] 20 mg SQ Q30D 10/04/21 10/04/21 History Allergies Allergy/AdvReac Type Severity Reaction Status Date / Time No Known Allergies Allergy Verified 10/04/21 18:28 Physical Examination - Vital Signs Vital Signs: Vital Signs Temp Pulse Pulse Resp BP BP Pulse Ox 10/05/21 02:00 18 10/05/21 01:45 98.3 F 87 17 144/85 95 10/04/21 22:00 94 18 140/81 95 10/04/21 18:51 98.6 F 95 14 141/74 98 10/04/21 17:24 98.5 F 100 12 147/82 98 Intake and Output 10/04/21 10/05/21 10/05/21 22:59 06:59 14:59 Other: Voiding Method External Catheter Weight 72.575 kg 72.575 kg GENERAL: The patient is lying in bed and is not in acute distress. CHEST: The heart rate is regular rate rhythm. No murmurs to auscultation. No carotid bruit bilaterally. LUNG: Clear to auscultation bilaterally no wheezing noted throughout. Not labored breathing. ABDOMEN/GI: Bowel sounds present in all 4 quadrants. No tenderness to palpation throughout. NEUROLOGICAL: Higher mental function: The patient is awake, alert, oriented to self, place. She stated the year is 2023 and the month was either September or October. Patient is following simple commands. Has some difficulty repeat phrases. No neglect. Cranial nerves: The pupils are round, equal and reactive to light. Visual moura are full to confrontation throughout. Extraocular movement is intact no nystagmus is noted. Facial sensation is normal to touch throughout. The facial strength is normal throughout. Hearing is normal bilaterally to hand rub. To ngue is midline and moved [id number] without any difficulty. No dysarthria is noted. Shoulder shrug is normal bilaterally. Motor: Gait is deferred. The strength is right thigh is 2-3, right knee is 3, ankle is 3. Otherwise 5/5. Slight increase tone over the right ankle. Normal bulk. Cerebellum: Normal finger to nose bilaterally. Sensation: Sensation is normal to touch throughout. Reflexes (right/left): 3+ bilateral patella, ankles are 1+, r otherwise 2+ throughout Plantars is upgoing on left while right is upgoing at baseline. Results - Laboratory Findings CBC and BMP: 10/05/21 06:07 10/04/21 17:52 Abnormal Lab Findings: Abnormal Labs 10/04/21 10/04/21 10/04/21 17:52 17:52 18:07 WBC 1.0 L* Glucose 163 H POC Glucose (mg/dL) 146 H Urine Appearance Ur Specific [place] Urine Protein Urine Ketones Urine Blood Urine Bacteria 10/04/21 22:29 WBC Glucose POC Glucose (mg/dL) Urine Appearance Cloudy H Ur Specific [place] >1.050 H Urine Protein Trace H Urine Ketones Trace H Urine Blood Trace H Urine Bacteria Rare H Assessment and Plan Assessment: Worsening of the right-sided weakness and recurrent falls likely on the basis of acute MS exacerbation. History of multiple sclerosis for 20 years (but notified me that she has not followed-up with her neurologist for the past one year) Possibly the patient has component of normal pressure hydrocephalus upon looking at the imaging Cognitive impairment/Dementia Leukopenia due to medication effect (Dalfampridine) Plan: I ordered MRI of the brain and cervical spine w/ and w/o stat Patient was started on Solu-Medrol 500 mg IV twice a day and recommend for 3-5 days. Since the patient started on IV Solu-Medrol recommend sugar monitoring and we'll defer the management to the primary team Ordered TSH, vitamin B12, folate, vitamin D level. I ordered hepatitis panel especially since the patient is on immunosuppression drug for her MS. Every 4 hours neuro checks Patient is on fall precaution Placed on cardiac monitoring PT is consulted and I also consulted OT. Regarding suspicion of normal pressure hydrocephalus recommend the patient to follow-up with a neurosurgeon as an outpatient as well as neurologist and recommended a large volume tap and if there is improvement in the patient's walk-in recommended [employer] shunt. We'll defer the rest of the medical management to the primary team For GI prophylaxis started on Protonix For DVT prophylaxis patient is on subcu heparin Upon discharge the patient needs to follow-up with a neurologist as outpatient within 1-2 weeks next The plan was discussed with the patient's nurse. We'll attempt to speak with the her to obtain more of the history. Thank you for the consultation Dr. Kruger will start neurology service tomorrow AM. Manish Leal M.D. Neuro-hospitalist Time with Patient: Greater than 30
[2021-10-05] MEDS: methylPREDNISolone SOD SUCCIN 500 MG in SODIUM CHLORIDE 0.9% 100 ML IVPB SCH ×2 (11:28→20:43)
[2021-10-05] MEDS: HEPARIN SODIUM,PORCINE/PF 5,000 UNIT/0.5 ML SYRINGE SQ SCH ×3 (11:28→20:44)
[2021-10-05] MEDS: PANTOPRAZOLE 40 MG TABLET PO SCH (11:28)
[2021-10-05 12:14] LABS: Glucose,Whole Blood 140 mg/dL (75-99)
[2021-10-05 13:00] LABS: HCT 42.3 % (37.2-46.3); HGB 13.3 g/dL (12.0-15.0); MCH 31.1 pg (27.0-32.0); MCHC 31.4 g/dL (32.0-37.0); MCV 98.8 fL (80.0-97.0); Mean Platelet Volume 10.9 fL (9.5-12.2); NRBC Per 100 WBC 0 /100 WBCS (0.0-0.0); Platelet Count 326 X 10*3/uL (140-440); RBC 4.28 X 10*6/uL (4.10-5.20); RDW 12.8 % (11.5-14.5)
[2021-10-05 14:19] LABS: Acanthocytes 2+; Neutrophils # (M) 0 X 10*3/uL (2.00-8.90)
[2021-10-05 16:37] LABS: Hepatitis A Antibody IgM Nonreactive (Nonreactive); Hepatitis B Core IgM Nonreactive (Nonreactive); Hepatitis B Surface Antigen Nonreactive (Nonreactive); Hepatitis C IgG Antibody Nonreactive (Nonreactive)
[2021-10-05] MEDS: NON FORMULARY DRUG (Dalfampridine [Dalfampridine Er] 10 MG Tab.Er.12h) PO SCH ×2 (16:53→20:44)
[2021-10-05 17:46] LABS: Glucose,Whole Blood 168 mg/dL (75-99)
[2021-10-05 20:10] LABS: Glucose,Whole Blood 250 mg/dL (75-99)
--- NOTE | 2021-10-05 23:01 | P.PN ---
Subjective Progress Note Date: 10/05/21 patient comes in with complaints of dizziness for couple days , she reports couple episodes of falling the past few days with no head injury or loss of consciousness. she is not on any blood thinners or blood pressure medications. she also noticed right leg weakness which are all typical of her MS flare up attacks . she denies any URI symptoms , UTI symptoms, abd pain nausea or vomiting, denies any chest pain or trouble breathing imaging in the ED, CT brain and CTA head and neck no acute pathology . blood work showed leukopenia 10/05/2021 Patient was admitted to the hospital due to acute MS exacerbation. Patient is currently resting in the bed. Awake alert oriented x3. Right-sided weakness is much improved. No complaints of chest pain or shortness breath. No nausea vomiting abdominal diarrhea. Patient is being continued on methylprednisolone 500 mg IVPB twice daily. Neurology is on board. Current medications reviewed. Objective - Vital Signs Vital signs: Vital Signs Temp 97.5 F L 10/05/21 07:30 Pulse 83 10/05/21 07:30 Resp 17 10/05/21 07:30 BP 137/78 10/05/21 07:30 Pulse Ox 93 L 10/05/21 07:30 Intake & Output 10/04/21 10/05/21 10/05/21 18:59 06:59 18:59 Intake Total 236 Balance 236 Weight 72.575 kg 72.575 kg Intake: Oral 236 Other: Voiding Method External Catheter # Voids 1 - Exam PHYSICAL EXAMINATION: Patient is lying in the bed comfortably, no acute distress, awake alert and oriented.. HEENT: Normocephalic. Neck is supple. Pupils reactive. Nostrils clear. Oral cavity is moist. Neck reveals no JVD, carotid bruits, or thyromegaly. CHEST EXAMINATION: Trachea is central. Symmetrical expansion. Lung moura clear to auscultation and percussion. CARDIAC: Normal S1, S2 with no gallops. No murmurs ABDOMEN: Soft. Bowel sounds normal. No organomegaly. No abdominal bruits. Extremities: reveal no edema. No clubbing or cyanosis Neurologically awake, alert, oriented x3 with well-coordinated movements. No focal deficits noted Skin: No rash or skin lesions. Psychiatric: Cooperative. Nonsuicidal Musculoskeletal: No joint swelling or deformity. Normal range of motion. - Labs CBC & Chem 7: 03/20/22 06:07 10/04/21 17:52 Labs: Abnormal Lab Results - Last 24 Hours (Table) 10/04/21 10/04/21 10/04/21 Range/Units 17:52 17:52 18:07 WBC 1.0 L* (3.8-10.6) k/uL Glucose 163 H (74-99) mg/dL POC Glucose (mg/dL) 146 H (75-99) mg/dL Urine Appearance (Clear) Ur Specific [place] (1.001-1.035) Urine Protein (Negative) Urine Ketones (Negative) Urine Blood (Negative) Urine Bacteria (None) /hpf 10/04/21 Range/Units 22:29 WBC (3.8-10.6) k/uL Glucose (74-99) mg/dL POC Glucose (mg/dL) (75-99) mg/dL Urine Appearance Cloudy H (Clear) Ur Specific [place] >1.050 H (1.001-1.035) Urine Protein Trace H (Negative) Urine Ketones Trace H (Negative) Urine Blood Trace H (Negative) Urine Bacteria Rare H (None) /hpf Assessment and Plan Assessment: acute MS Exacerbation frequent falling PT eval fall precautions CT brain and CTA head and neck no acute pathology monitor vital signs neuro checks Patient will be continued on mother's prednisone 500 mg IVPB twice daily. Neurology is following. Patient is also on dalfampridine every 12 hours leukopenia Possible medication effect recheck CBC in AM hematology consulted full code heparin sc tid , DVT PPX anticipated length of stay > 2 midnights Time with Patient: Greater than 30
[2021-10-06] MEDS: SODIUM CHLORIDE 0.9% 1,000 ML IV SCH ×2 (00:26→15:48)
[2021-10-06 05:15] LABS: Glucose,Whole Blood 159 mg/dL (75-99)
[2021-10-06 07:45] LABS: Glucose,Whole Blood 141 mg/dL (75-99)
[2021-10-06 08:26] LABS: WBC 0.57 X 10*3/uL (4.50-10.00)
[2021-10-06] MEDS: HEPARIN SODIUM,PORCINE/PF 5,000 UNIT/0.5 ML SYRINGE SQ SCH ×3 (08:41→20:59)
[2021-10-06] MEDS: PANTOPRAZOLE 40 MG TABLET PO SCH (08:41)
[2021-10-06] MEDS: NON FORMULARY DRUG (Dalfampridine [Dalfampridine Er] 10 MG Tab.Er.12h) PO SCH ×2 (08:48→20:59)
[2021-10-06] MEDS: methylPREDNISolone SOD SUCCIN 500 MG in SODIUM CHLORIDE 0.9% 100 ML IVPB SCH ×2 (08:51→20:58)
[2021-10-06 11:02] LABS: African American GFR (CKD) 77.2 (60.0-200.0); Albumin 4.1 g/dL (3.8-4.9); Albumin/Globulin Ratio 1.78 (1.60-3.17); Anion Gap 11.4 mmol/L (10.00-18.00); BUN/Creat Ratio 20.33 Ratio (12.00-20.00); Blood Urea Nitrogen 18.3 mg/dL (9.0-27.0); Calcium 9.2 mg/dL (8.7-10.3); Carbon Dioxide 21.6 mmol/L (20.0-27.5); Globulin 2.3 g/dL (1.6-3.3); Non-African American GFR(CKD) 66.6 (60.0-200.0); Potassium 4.2 mmol/L (3.5-5.5); Total Bilirubin 0.2 mg/dL (0.30-1.20); Total Protein 6.4 g/dL (6.2-8.2)
[2021-10-06 11:23] LABS: Basophils # (M) 0 X 10*3/uL (0.00-0.10); Eosinophils # (M) 0 X 10*3/uL (0.04-0.35); HCT 42.6 % (37.2-46.3); HGB 13.7 g/dL (12.0-15.0); Lymphocytes # (M) 0.41 X 10*3/uL (0.90-5.00); MCH 31.4 pg (27.0-32.0); MCHC 32.2 g/dL (32.0-37.0); MCV 97.7 fL (80.0-97.0); Mean Platelet Volume 10.9 fL (9.5-12.2); Monocytes # (M) 0.96 X 10*3/uL (0.20-1.00); Myelocytes % 2 % (0-0); NRBC Per 100 WBC 0 /100 WBCS (0.0-0.0); Neutrophils # (M) 0.06 X 10*3/uL (2.00-8.90); Neutrophils % (M) 4 %; Platelet Count 399 X 10*3/uL (140-440); Promyelocytes % 1 % (0-0); RBC 4.36 X 10*6/uL (4.10-5.20); RDW 12.8 % (11.5-14.5)
[2021-10-06 12:16] LABS: Glucose,Whole Blood 149 mg/dL (75-99)
[2021-10-06 12:17] LABS: WBC 1.47 X 10*3/uL (4.50-10.00)
--- NOTE | 2021-10-06 14:57 | P.CONS ---
History of Present Illness - Reason for Consult Consult date: 10/06/21 Leukopenia, MS Flair Requesting physician: Celine Tompkins - Chief Complaint MS Flair - History of Present Illness Mrs. Oneal is a pleasant female admitted with MS flair who has been receiving biologic therapy as outpatient. During stay noted her WBC Critically low ther efore we were asked by primary team to further evaluate Review of Systems All systems: negative Constitutional: Reports as per HPI Past Medical History Past Medical History: Memory Impairment Additional Past Medical History / Comment(s): MULTIPLE SCLEROSIS History of Any Multi-Drug Resistant Organisms: None Reported Past Surgical History: Hysterectomy, Tonsillectomy Past Anesthesia/Blood Transfusion Reactions: No Reported Reaction Past Psychological History: No Psychological Hx Reported Smoking Status: Never smoker Past Alcohol Use History: None Reported Past Drug Use History: None Reported - Past Family History Mother Family Medical History: Cancer Additional Family Medical History / Comment(s): HODGKINS LYMPHOMA Father Family Medical History: Myocardial Infarction ([place]) Medications and Allergies Home Medications Medication Instructions Recorded Confirmed Type Dalfampridine [Dalfampridine ER] 10 mg PO Q12H 07/28/19 10/04/21 History Ofatumumab [Kesimpta Pen] 20 mg SQ Q30D 10/04/21 10/04/21 History Allergies Allergy/AdvReac Type Severity Reaction Status Date / Time No Known Allergies Allergy Verified 10/04/21 18:28 Physical Exam Vitals: Vital Signs Temp Pulse Resp BP Pulse Ox 10/06/21 07:40 97.8 F 85 16 151/88 98 10/06/21 01:06 97.9 F 95 16 155/94 95 10/05/21 19:31 98.4 F 70 20 167/69 99 10/05/21 15:00 98.2 F 67 17 146/74 93 L Intake and Output 10/05/21 10/06/21 10/06/21 22:59 06:59 14:59 Intake Total 180 Balance 180 Intake: Oral 180 Other: Voiding Method External Catheter # Voids 1 2 - Constitutional General appearance: cooperative, no acute distress - EENT Eyes: EOMI ENT: NA/AT - Respiratory Respiratory: bilateral: CTA - Cardiovascular Rhythm: regular - Gastrointestinal General gastrointestinal: soft - Integumentary Integumentary: pale - Neurologic Neurologic: CNII-XII intact - Musculoskeletal Musculoskeletal: generalized weakness - Psychiatric Psychiatric: A&O x's 3 Results CBC & Chem 7: 10/06/21 06:54 10/06/21 06:54 Labs: Abnormal Lab Results - Last 24 Hours (Table) 10/05/21 10/05/21 10/05/21 Range/Units 06:07 17:44 20:08 WBC 0.57 L* (4.50-10.00) X 10*3/uL MCV 98.8 H (80.0-97.0) fL MCHC 31.4 L (32.0-37.0) g/dL Myelocytes % (0-0) % Promyelocytes % (0-0) % Neutrophils # (Manual) 0 L* (2.00-8.90) X 10*3/uL Lymphocytes # (Manual) (0.90-5.00) X 10*3/uL Eosinophils # (Manual) (0.04-0.35) X 10*3/uL BUN/Creatinine Ratio (12.00-20.00) Ratio Glucose (70-110) mg/dL POC Glucose (mg/dL) 168 H 250 H (75-99) mg/dL Total Bilirubin (0.30-1.20) mg/dL 10/06/21 10/06/21 10/06/21 Range/Units 05:12 06:54 06:54 WBC 1.47 L* (4.50-10.00) X 10*3/uL MCV 97.7 H (80.0-97.0) fL MCHC (32.0-37.0) g/dL Myelocytes % 2 H (0-0) % Promyelocytes % 1 H (0-0) % Neutrophils # (Manual) 0.06 L* (2.00-8.90) X 10*3/uL Lymphocytes # (Manual) 0.41 L (0.90-5.00) X 10*3/uL Eosinophils # (Manual) 0 L (0.04-0.35) X 10*3/uL BUN/Creatinine Ratio 20.33 H (12.00-20.00) Ratio Glucose 161 H (70-110) mg/dL POC Glucose (mg/dL) 159 H (75-99) mg/dL Total Bilirubin 0.20 L (0.30-1.20) mg/dL 10/06/21 10/06/21 Range/Units 07:44 12:14 WBC (4.50-10.00) X 10*3/uL MCV (80.0-97.0) fL MCHC (32.0-37.0) g/dL Myelocytes % (0-0) % Promyelocytes % (0-0) % Neutrophils # (Manual) (2.00-8.90) X 10*3/uL Lymphocytes # (Manual) (0.90-5.00) X 10*3/uL Eosinophils # (Manual) (0.04-0.35) X 10*3/uL BUN/Creatinine Ratio (12.00-20.00) Ratio Glucose (70-110) mg/dL POC Glucose (mg/dL) 141 H 149 H (75-99) mg/dL Total Bilirubin (0.30-1.20) mg/dL Assessment and Plan (1) Exacerbation of multiple sclerosis Current Visit: Yes Status: Acute Code(s): G35 - MULTIPLE SCLEROSIS SNOMED Code(s): 392833626 (2) Leukopenia Narrative/Plan: - Mostly likely a combination of her Biologic therapy and Inflammation - Further infectious work-up pending - Other potential causes also ordered and pending - Neutropenia and on steroids at this time would recommend prophylaxic abx and anti-viral given her increased immunosuppressive state Dr. Daley: I have completed the full history and physical and developed the above impression and plan, agree with dictation, dictated as a scribe, Current Visit: Yes Status: Acute Code(s): D72.819 - DECREASED WHITE BLOOD CELL COUNT, UNSPECIFIED SNOMED Code(s): 36498467
--- NOTE | 2021-10-06 15:42 | P.PN ---
Subjective Progress Note Date: 10/06/21 patient comes in with complaints of dizziness for couple days , she reports couple episodes of falling the past few days with no head injury or loss of consciousness. she is not on any blood thinners or blood pressure medications. she also noticed right leg weakness which are all typical of her MS flare up attacks . she denies any URI symptoms , UTI symptoms, abd pain nausea or vomiting, denies any chest pain or trouble breathing imaging in the ED, CT brain and CTA head and neck no acute pathology . blood work showed leukopenia 10/05/2021 Patient was admitted to the hospital due to acute MS exacerbation. Patient is currently resting in the bed. Awake alert oriented x3. Right-sided weakness is much improved. No complaints of chest pain or shortness breath. No nausea vomiting abdominal diarrhea. Patient is being continued on methylprednisolone 500 mg IVPB twice daily. Neurology is on board. 10/06/2021 Patient noted today sitting up in the chair. States the right-sided weakness continues to be improved. No acute events overnight. Oncology evaluation today with pending full work up for leukopenia. WBC today is 1.47, hemoglobin stable 13.7, platelet count 399. Electrolyte panel essentially unremarkable with the exception of blood glucose in the 140s. Oncology recommending prophylactic antibiotics and antiviral therapy. Brain cervical MRI currently pending. Patient is afebrile, heart rate 85, blood pressure 151/88, 98% room air. Continues on IVPB methylprednisolone and IV fluids. Appreciate neurology consult. Current medications reviewed. Review of Systems Constitutional: Denied any fatigue denied any fever. Cardio vascular: denied any chest pain, palpitations Gastrointestinal: denied any nausea, vomiting, diarrhea Pulmonary: Denied any shortness of breath cough Neurologic denied any new focal deficits All inpatient medications were reviewed and appropriate changes in these medications as dictated in the interval history and assessment and plan. PHYSICAL EXAMINATION: GENERAL: The patient is alert and oriented x3, not in any acute distress. Well developed, well nourished. HEENT: Pupils are round and equally reacting to light. EOMI. No scleral icterus. No conjunctival pallor. Normocephalic, atraumatic. No pharyngeal erythema. No thyromegaly. CARDIOVASCULAR: S1 and S2 present. No murmurs, rubs, or gallops. PULMONARY: Chest is clear to auscultation, no wheezing or crackles. ABDOMEN: Soft, nontender, nondistended, normoactive bowel sounds. No palpable organomegaly. MUSCULOSKELETAL: No joint swelling or deformity. EXTREMITIES: No cyanosis, clubbing, mild pedal edema NEUROLOGICAL: Mild RLE weakness. SKIN: No rashes. Assessment and plan Assessment Acute MS Exacerbation frequent falling PT eval fall precautions CT brain and CTA head and neck no acute pathology monitor vital signs neuro checks Patient will be continued on mother's prednisone 500 mg IVPB twice daily. Neurology is following. Patient is also on dalfampridine every 12 hours, which will need to be brought from home for patient to continue; non-formulary Leukopenia Possible medication effect recheck CBC in AM Hematology consult patient started on IV abx/ antiviral therapy for ppx Further work up in progress full code heparin sc tid , DVT PPX anticipated length of stay > 2 midnights The impression and plan of care has been dictated by Kelsey Roa, Nurse Practitioner as directed. Dr. Skyla MD I have performed a history and physical examination and medical decision making of this patient, discussed the same with the dictator, and agree with the dictators assessment and plan as written, documented as a scribe. Based on total visit time, I have performed more than 50% of this visit. Objective - Vital Signs Vital signs: Vital Signs Temp 97.8 F 10/06/21 07:40 Pulse 85 10/06/21 07:40 Resp 16 10/06/21 07:40 BP 151/88 10/06/21 07:40 Pulse Ox 98 10/06/21 07:40 Intake & Output 10/05/21 10/06/21 10/06/21 18:59 06:59 18:59 Intake Total 236 180 Balance 236 180 Intake: Oral 236 180 Other: Voiding Method External Catheter # Voids 1 2 - Labs CBC & Chem 7: 10/06/21 06:54 10/06/21 06:54 Labs: Abnormal Lab Results - Last 24 Hours (Table) 10/05/21 10/05/21 10/05/21 Range/Units 06:07 17:44 20:08 WBC 0.57 L* (4.50-10.00) X 10*3/uL MCV 98.8 H (80.0-97.0) fL MCHC 31.4 L (32.0-37.0) g/dL Myelocytes % (0-0) % Promyelocytes % (0-0) % Neutrophils # (Manual) 0 L* (2.00-8.90) X 10*3/uL Lymphocytes # (Manual) (0.90-5.00) X 10*3/uL Eosinophils # (Manual) (0.04-0.35) X 10*3/uL BUN/Creatinine Ratio (12.00-20.00) Ratio Glucose (70-110) mg/dL POC Glucose (mg/dL) 168 H 250 H (75-99) mg/dL Total Bilirubin (0.30-1.20) mg/dL 10/06/21 10/06/21 10/06/21 Range/Units 05:12 06:54 06:54 WBC 1.47 L* (4.50-10.00) X 10*3/uL MCV 97.7 H (80.0-97.0) fL MCHC (32.0-37.0) g/dL Myelocytes % 2 H (0-0) % Promyelocytes % 1 H (0-0) % Neutrophils # (Manual) 0.06 L* (2.00-8.90) X 10*3/uL Lymphocytes # (Manual) 0.41 L (0.90-5.00) X 10*3/uL Eosinophils # (Manual) 0 L (0.04-0.35) X 10*3/uL BUN/Creatinine Ratio 20.33 H (12.00-20.00) Ratio Glucose 161 H (70-110) mg/dL POC Glucose (mg/dL) 159 H (75-99) mg/dL Total Bilirubin 0.20 L (0.30-1.20) mg/dL 10/06/21 10/06/21 Range/Units 07:44 12:14 WBC (4.50-10.00) X 10*3/uL MCV (80.0-97.0) fL MCHC (32.0-37.0) g/dL Myelocytes % (0-0) % Promyelocytes % (0-0) % Neutrophils # (Manual) (2.00-8.90) X 10*3/uL Lymphocytes # (Manual) (0.90-5.00) X 10*3/uL Eosinophils # (Manual) (0.04-0.35) X 10*3/uL BUN/Creatinine Ratio (12.00-20.00) Ratio Glucose (70-110) mg/dL POC Glucose (mg/dL) 141 H 149 H (75-99) mg/dL Total Bilirubin (0.30-1.20) mg/dL Assessment and Plan Time with Patient: Less than 30
[2021-10-06] MEDS: LEVOFLOXACIN 500MG-D5W PMX 500 MG in DEXTROSE/WATER 1 100ML.BAG IVPB SCH (16:19)
[2021-10-06 17:16] LABS: Glucose,Whole Blood 271 mg/dL (75-99)
[2021-10-06] MEDS: INSULIN ASPART (NovoLOG) 100 UNIT/ML VIAL SQ SCH (18:30)
--- NOTE | 2021-10-06 20:19 | MR ---
EXAMINATION TYPE: MR brain/cspine wo/w DATE OF EXAM: 10/06/2021 COMPARISON: Prior MRI brain December 28, 2018 CT cervical spine October 11, 2020 HISTORY: Rt leg weakness, MS exacerbation. TECHNIQUE: Multiplanar, multisequence images of the brain and brainstem and cervical spine are all performed wit hout and with IV contrast, utilizing 7.5 mL intravenous Gadavist . Demyelinating disease protocol. FINDINGS: BRAIN: Suboptimal as axial FLAIR sequence is not performed as per normal protocol. Diffusion weighted images demonstrate no evidence of a recent infarct or other diffusion abnormality. Diffuse ventricular and sulcal prominence redemonstrated. Degree of ventricular prominence out of pr oportion to degree of sulcal effacement but no significant change from 2019 MRI noted. Focal and conf luent areas of T2 hyperintensity demonstrated throughout the white matter bilaterally. Findings most prominent at periventricular levels. Midline structures demonstrate normal morphology. The craniocervical junction appears within normal limits. Post contrast images demonstrate no abnormal enhancement for new enhancing lesions.. The dur al venous sinuses appear patent. Mild mucosal thickening inferior right maxillary sinus. IMPRESSION: Mild to moderate diffuse cerebral atrophy with advanced nonspecific white matter changes may be on the basis of known multiple sclerosis. No significant change from prior MRI. No definitive new or enhancing lesions. Underlying Hydrocephalus redemonstrated without significant change. Cervical spine: FINDINGS: Sagittal images of the cervical spine show the craniocervical junction to appear within nor mal limits. The cervical and upper thoracic spinal cord is normal in caliber. Suspicious T2 hyperint ense lesion right aspect C7 vertebral level seen best series 1101 image 7. Vertebral alignment is st raightened with grade 1 retrolisthesis C4 on C5 redemonstrated. The vertebral body heights are yessica l. Mild to moderate disc space narrowing C4-C5 and C5-C6 levels with mild to moderate spurring. The bone marrow signal intensity is within normal limits. No focal enhancing lesions are evident. Axial images at C2-C3 level show left-sided uncovertebral facet degenerative changes causing mild lef t-sided neural foraminal narrowing. Axial images at C3-C4 level appear within normal limits. Axial images at C4-C5 level shows spondylosis with broad-based left paracentral spur disc complex and uncovertebral facet spurring, there is effacement of the anterior thecal sac along with moderate to severe left-sided neural foraminal narrowing. Axial images at C5-C6 level shows broad-based right paracentral spur disc complex mildly effaces the anterior thecal sac, patent bilateral neural foramina. Axial images at C6-C7 level show focal right paracentral disc protrusion mildly effacing the anterior thecal sac, patent bilateral neural foramina. Axial images at C7-T1 level show focal left paracentral disc protrusion mildly effaces the anterior t hecal sac, patent bilateral neural foramina. Axial images confirm T2 hyperintense signal right aspect of spinal cord at C7 level axial images 13 t hrough 16 For reference. There may be additional subtle right lateral lesion superior C2 level axial image 56 and posterior right C4-C5 level axial image 33. No definitive enhancing lesions. IMPRESSION: There are suspected 3 areas of demyelinating disease involvement in the cervical spinal c ord. No enhancing lesions are identified. Subtle spondylolisthesis with multilevel degenerative spence es as detailed above.
[2021-10-06 20:35] LABS: Glucose,Whole Blood 208 mg/dL (75-99)
[2021-10-06] MEDS: ACYCLOVIR 200 MG CAP PO SCH (20:59)
[2021-10-06] MEDS ORDERED: INSULIN ASPART (NovoLOG) 100 UNIT/ML VIAL SQ ONE (21:40)
[2021-10-07 00:28] LABS: Immunoglobulin M 23.8 mg/dL (40.0-280.0)
[2021-10-07] MEDS: SODIUM CHLORIDE 0.9% 1,000 ML IV SCH ×2 (01:40→17:33)
[2021-10-07 02:39] LABS: Glucose,Whole Blood 114 mg/dL (75-99)
[2021-10-07 07:46] LABS: Glucose,Whole Blood 140 mg/dL (75-99)
[2021-10-07] MEDS: ACYCLOVIR 200 MG CAP PO SCH ×2 (08:58→22:03)
[2021-10-07] MEDS: methylPREDNISolone SOD SUCCIN 500 MG in SODIUM CHLORIDE 0.9% 100 ML IVPB SCH ×2 (08:58→21:44)
[2021-10-07] MEDS: PANTOPRAZOLE 40 MG TABLET PO SCH (08:59)
[2021-10-07] MEDS: INSULIN ASPART (NovoLOG) 100 UNIT/ML VIAL SQ SCH ×8 (08:59→22:04)
[2021-10-07] MEDS: HEPARIN SODIUM,PORCINE/PF 5,000 UNIT/0.5 ML SYRINGE SQ SCH ×3 (08:59→21:44)
[2021-10-07] MEDS: NON FORMULARY DRUG (Dalfampridine [Dalfampridine Er] 10 MG Tab.Er.12h) PO SCH ×2 (09:00→21:45)
[2021-10-07 10:11] LABS: Protein, Total 6.3 g/dL (6.2-8.2)
--- NOTE | 2021-10-07 10:17 | P.PN ---
Subjective Progress Note Date: 10/07/21 patient comes in with complaints of dizziness for couple days , she reports couple episodes of falling the past few days with no head injury or loss of consciousness. she is not on any blood thinners or blood pressure medications. she also noticed right leg weakness which are all typical of her MS flare up attacks . she denies any URI symptoms , UTI symptoms, abd pain nausea or vomiting, denies any chest pain or trouble breathing imaging in the ED, CT brain and CTA head and neck no acute pathology . blood work showed leukopenia 10/05/2021 Patient was admitted to the hospital due to acute MS exacerbation. Patient is currently resting in the bed. Awake alert oriented x3. Right-sided weakness is much improved. No complaints of chest pain or shortness breath. No nausea vomiting abdominal diarrhea. Patient is being continued on methylprednisolone 500 mg IVPB twice daily. Neurology is on board. 10/06/2021 Patient noted today sitting up in the chair. States the right-sided weakness continues to be improved. No acute events overnight. Oncology evaluation today with pending full work up for leukopenia. WBC today is 1.47, hemoglobin stable 13.7, platelet count 399. Electrolyte panel essentially unremarkable with the exception of blood glucose in the 140s. Oncology recommending prophylactic antibiotics and antiviral therapy. Brain cervical MRI currently pending. Patient is afebrile, heart rate 85, blood pressure 151/88, 98% room air. Continues on IVPB methylprednisolone and IV fluids. Appreciate neurology consult. 10/07/2021 Patient is evaluated today sitting in the chair, with chair alarm in place. No acute complaints. Patient had a staff assisted fall yesterday evening while walking to the bathroom. Patient denies hitting head, denies any dizziness or lightheadedness. States that she just felt like her legs were weak and gave out. Per patient has been falling at home, however patient denies when asked. Currently denies any pain, has full range of motion upper extremities. PT OT is in consult. Brain/cervical MRI was completed yesterday which shows muir spected 3 areas of demyelinating disease involvement in the cervical spinal cord with no enhancing lesions, subtle spondylo-listhesis with multilevel degenerative changes. Blood sugars are elevated in the 200s, will add a small dose of NovoLog with meals in addition to sliding scale as she still on IVPB steroids. Additional Labs are pending from today. Continues on IV antibiotics and PO antivral. Patient also elevated blood pressure 170s. We'll add a small dose of lisinopril today. Current medications reviewed. Review of Systems Constitutional: Denied any fatigue denied any fever. Cardio vascular: denied any chest pain, palpitations Gastrointestinal: denied any nausea, vomiting, diarrhea Pulmonary: Denied any shortness of breath cough Neurologic denied any new focal deficits All inpatient medications were reviewed and appropriate changes in these medications as dictated in the interval history and assessment and plan. PHYSICAL EXAMINATION: GENERAL: The patient is alert and oriented x3, not in any acute distress. Well developed, well nourished. HEENT: Pupils are round and equally reacting to light. EOMI. No scleral icterus. No conjunctival pallor. Normocephalic, atraumatic. No pharyngeal erythema. No thyromegaly. CARDIOVASCULAR: S1 and S2 present. No murmurs, rubs, or gallops. PULMONARY: Chest is clear to auscultation, no wheezing or crackles. ABDOMEN: Soft, nontender, nondistended, normoactive bowel sounds. No palpable organomegaly. MUSCULOSKELETAL: No joint swelling or deformity. EXTREMITIES: No cyanosis, clubbing, mild pedal edema NEUROLOGICAL: Mild RLE weakness. SKIN: No rashes. Assessment and plan Assessment Acute MS Exacerbation with no pathological lesions found on imaging Leukopenia, hematology work up in progress, on prophylatic antibiotics/antiviral Generalized weakness with frequent falling at home with staff assisted fall yesterday PT eval fall precautions monitor vital signs neuro checks Patient will be continued on mother's prednisone 500 mg IVPB twice daily. Neurology is following. Patient is also on dalfampridine every 12 hours, which will need to be brought from home for patient to continue; non-formulary Hypertension, no history of hypertension, not on medications at home Steroid inducted hyperglycemia Elevated random blood glucose on admission prior to patient being started on IV steroids GI Prophylaxis DVT Prophylaxis Full code Plan Continue IV steroids as per neurology Continue IV antibiotics/antiviral as per hematology Continue with fall precautions Monitor blood glucose and adjust insulin as needed Check an A1C Add lisinopril and check orthos PT/OT evaluation The impression and plan of care has been dictated by Kelsey Roa Nurse Practitioner as directed. Dr. Skyla MD I have performed a history and physical examination and medical decision making of this patient, discussed the same with the dictator, and agree with the dictators assessment and plan as written, documented as a scribe. Based on total visit time, I have performed more than 50% of this visit. Objective - Vital Signs Vital signs: Vital Signs Temp 97.5 F L 10/07/21 08:00 Pulse 75 10/07/21 09:18 Resp 16 10/07/21 09:18 BP 161/84 10/07/21 08:00 Pulse Ox 94 L 10/07/21 08:00 Intake & Output 10/06/21 10/07/21 10/07/21 18:59 06:59 18:59 Intake Total 516 Balance 516 Intake: Intake, IV Titration 100 Amount methylPREDNISolone SOD 100 SUCCIN 500 mg In Sodium Chloride 0.9% 100 ml @ 100 mls/hr IVPB BID [facility] Rx#:[id number] Oral 416 Other: Voiding Method External Catheter Bedside Commode # Voids 3 4 - Labs CBC & Chem 7: 10/06/21 06:54 10/06/21 06:54 Labs: Abnormal Lab Results - Last 24 Hours (Table) 10/06/21 10/06/21 10/06/21 Range/Units 06:54 06:54 12:14 WBC 1.47 L* (4.50-10.00) X 10*3/uL MCV 97.7 H (80.0-97.0) fL Myelocytes % 2 H (0-0) % Promyelocytes % 1 H (0-0) % Neutrophils # (Manual) 0.06 L* (2.00-8.90) X 10*3/uL Lymphocytes # (Manual) 0.41 L (0.90-5.00) X 10*3/uL Eosinophils # (Manual) 0 L (0.04-0.35) X 10*3/uL BUN/Creatinine Ratio 20.33 H (12.00-20.00) Ratio Glucose 161 H (70-110) mg/dL POC Glucose (mg/dL) 149 H (75-99) mg/dL Total Bilirubin 0.20 L (0.30-1.20) mg/dL IgM (40.0-280.0) mg/dL 10/06/21 10/06/21 10/06/21 Range/Units 15:28 17:15 20:34 WBC (4.50-10.00) X 10*3/uL MCV (80.0-97.0) fL Myelocytes % (0-0) % Promyelocytes % (0-0) % Neutrophils # (Manual) (2.00-8.90) X 10*3/uL Lymphocytes # (Manual) (0.90-5.00) X 10*3/uL Eosinophils # (Manual) (0.04-0.35) X 10*3/uL BUN/Creatinine Ratio (12.00-20.00) Ratio Glucose (70-110) mg/dL POC Glucose (mg/dL) 271 H 208 H (75-99) mg/dL Total Bilirubin (0.30-1.20) mg/dL IgM 23.8 L (40.0-280.0) mg/dL 10/07/21 10/07/21 Range/Units 02:38 07:32 WBC (4.50-10.00) X 10*3/uL MCV (80.0-97.0) fL Myelocytes % (0-0) % Promyelocytes % (0-0) % Neutrophils # (Manual) (2.00-8.90) X 10*3/uL Lymphocytes # (Manual) (0.90-5.00) X 10*3/uL Eosinophils # (Manual) (0.04-0.35) X 10*3/uL BUN/Creatinine Ratio (12.00-20.00) Ratio Glucose (70-110) mg/dL POC Glucose (mg/dL) 114 H 140 H (75-99) mg/dL Total Bilirubin (0.30-1.20) mg/dL IgM (40.0-280.0) mg/dL Assessment and Plan Time with Patient: Less than 30
--- NOTE | 2021-10-07 10:49 | P.PN ---
Subjective Progress Note Date: 10/06/21 Patient initially seen by Dr. Manish Leal. Please refer to his note for details. Patient is a 66-year-old female with history of MS, came to the hospital for worsening of the right side. Has not followed up with a neurologist for one year. Patient has been started on Solu-Medrol 500 mg IV twice a day. Patient however tells me that she got dizzy and fell at home. She states that she has MS for 23 years. She follows up with neurologist, based in [facility]. Objective - Vital Signs Vital signs: Vital Signs Temp 97.5 F L 10/07/21 08:00 Pulse 75 10/07/21 09:18 Resp 16 10/07/21 09:18 BP 161/84 10/07/21 08:00 Pulse Ox 94 L 10/07/21 08:00 Intake & Output 10/06/21 10/07/21 10/07/21 18:59 06:59 18:59 Intake Total 516 Balance 516 Intake: Intake, IV Titration 100 Amount methylPREDNISolone SOD 100 SUCCIN 500 mg In Sodium Chloride 0.9% 100 ml @ 100 mls/hr IVPB BID [facility] Rx#:[id number] Oral 416 Other: Voiding Method External Catheter Bedside Commode # Voids 3 4 - Exam On examination patient's mental status, speech and language functions are normal. Cranial nerves are normal. On muscle strength testing, the strength is normal in the arms and legs, except (right/left) hip flexion 4/5-, ankle dorsiflexion 2/4+5-. Reflexes are (right/left) biceps trace/2+3, brachioradialis trace/2+. In the lower extremities knee 3/3, ankles 1+/2+. Plantars are upgoing bilaterally. No obvious ataxia for [id number]-bv-[id number] testing. Sensations equal. Gait deferred. - Labs CBC & Chem 7: 10/06/21 06:54 10/06/21 06:54 Labs: Abnormal Lab Results - Last 24 Hours (Table) 10/06/21 10/06/21 10/06/21 Range/Units 06:54 06:54 12:14 WBC 1.47 L* (4.50-10.00) X 10*3/uL MCV 97.7 H (80.0-97.0) fL Myelocytes % 2 H (0-0) % Promyelocytes % 1 H (0-0) % Neutrophils # (Manual) 0.06 L* (2.00-8.90) X 10*3/uL Lymphocytes # (Manual) 0.41 L (0.90-5.00) X 10*3/uL Eosinophils # (Manual) 0 L (0.04-0.35) X 10*3/uL BUN/Creatinine Ratio 20.33 H (12.00-20.00) Ratio Glucose 161 H (70-110) mg/dL POC Glucose (mg/dL) 149 H (75-99) mg/dL Total Bilirubin 0.20 L (0.30-1.20) mg/dL IgM (40.0-280.0) mg/dL 10/06/21 10/06/21 10/06/21 Range/Units 15:28 17:15 20:34 WBC (4.50-10.00) X 10*3/uL MCV (80.0-97.0) fL Myelocytes % (0-0) % Promyelocytes % (0-0) % Neutrophils # (Manual) (2.00-8.90) X 10*3/uL Lymphocytes # (Manual) (0.90-5.00) X 10*3/uL Eosinophils # (Manual) (0.04-0.35) X 10*3/uL BUN/Creatinine Ratio (12.00-20.00) Ratio Glucose (70-110) mg/dL POC Glucose (mg/dL) 271 H 208 H (75-99) mg/dL Total Bilirubin (0.30-1.20) mg/dL IgM 23.8 L (40.0-280.0) mg/dL 10/07/21 10/07/21 Range/Units 02:38 07:32 WBC (4.50-10.00) X 10*3/uL MCV (80.0-97.0) fL Myelocytes % (0-0) % Promyelocytes % (0-0) % Neutrophils # (Manual) (2.00-8.90) X 10*3/uL Lymphocytes # (Manual) (0.90-5.00) X 10*3/uL Eosinophils # (Manual) (0.04-0.35) X 10*3/uL BUN/Creatinine Ratio (12.00-20.00) Ratio Glucose (70-110) mg/dL POC Glucose (mg/dL) 114 H 140 H (75-99) mg/dL Total Bilirubin (0.30-1.20) mg/dL IgM (40.0-280.0) mg/dL Assessment and Plan Assessment: Worsening of the right-sided weakness and recurrent falls likely on the basis of acute MS exacerbation. History of multiple sclerosis for 20 years (but notified me that she has not followed-up with her neurologist for the past one year) Possibly the patient has component of normal pressure hydrocephalus upon looking at the imaging Cognitive impairment/Dementia Leukopenia due to medication effect (Dalfampridine) Plan: Await MRI of the brain and cervical spine w/ and w/o. Results pending at this time. Continue Solu-Medrol 500 mg IV twice a day and recommend for 3-5 days. Patient wants to go home. Since the patient started on IV Solu-Medrol recommend sugar monitoring and we'll defer the management to the primary team TSH 1.42, vitamin B12 577, folate 19.8, vitamin D 25.5. Hepatitis panel negative. Patient is on fall precaution. PT and OT. Regarding suspicion of normal pressure hydrocephalus recommend the patient to follow-up with a neurosurgeon as an outpatient as well as neurologist and recommended a large volume tap and if there is improvement in the patient's walk-in recommended [employer] shunt. We'll defer the rest of the medical management to the primary team For GI prophylaxis started on Protonix For DVT prophylaxis patient is on subcu heparin Upon discharge the patient needs to follow-up with a neurologist as outpatient within 1-2 weeks next
[2021-10-07 10:50] LABS: Basophils # (M) 0 X 10*3/uL (0.00-0.10); Eosinophils # (M) 0 X 10*3/uL (0.04-0.35); HCT 40.9 % (37.2-46.3); HGB 13.2 g/dL (12.0-15.0); Lymphocytes # (M) 0.34 X 10*3/uL (0.90-5.00); MCH 30.8 pg (27.0-32.0); MCHC 32.3 g/dL (32.0-37.0); MCV 95.3 fL (80.0-97.0); Mean Platelet Volume 11.1 fL (9.5-12.2); Metamyelocytes % 1 % (0-0); Monocytes # (M) 0.88 X 10*3/uL (0.20-1.00); Myelocytes % 5 % (0-0); NRBC Per 100 WBC 0 /100 WBCS (0.0-0.0); Neutrophils # (M) 0.47 X 10*3/uL (2.00-8.90); Neutrophils % (M) 25 %; Platelet Count 327 X 10*3/uL (140-440); Promyelocytes % 4 % (0-0); RBC 4.29 X 10*6/uL (4.10-5.20); RDW 12.7 % (11.5-14.5); WBC 1.88 X 10*3/uL (4.50-10.00)
[2021-10-07] MEDS: lisinopriL 5 MG TAB PO SCH (12:07)
[2021-10-07 12:28] LABS: Glucose,Whole Blood 209 mg/dL (75-99)
[2021-10-07] MEDS ORDERED: LACTATED RINGERS 1,000 ML IV ONE (14:38)
[2021-10-07 14:48] LABS: Glucose,Whole Blood 314 mg/dL (75-99)
--- NOTE | 2021-10-07 15:04 | P.PN ---
Subjective Progress Note Date: 10/07/21 Principal diagnosis: leukopenia In follow-up today patient is sitting up in a chair, she has no acute complaints. Denies any fevers, nausea, unusual cough, urinary symptoms. Objective - Vital Signs Vital signs: Vital Signs Temp 97.1 F L 10/07/21 14:31 Pulse 81 10/07/21 14:31 Resp 17 10/07/21 14:31 BP 153/79 10/07/21 14:31 Pulse Ox 98 10/07/21 14:31 Intake & Output 10/06/21 10/07/21 10/07/21 18:59 06:59 18:59 Intake Total 516 Balance 516 Intake: Intake, IV Titration 100 Amount methylPREDNISolone SOD 100 SUCCIN 500 mg In Sodium Chloride 0.9% 100 ml @ 100 mls/hr IVPB BID [facility] Rx#:[id number] Oral 416 Other: Voiding Method External Catheter Bedside Commode # Voids 3 4 - Constitutional General appearance: Present: average body habitus, cooperative, no acute distress - EENT Eyes: Present: anicteric sclerae, EOMI ENT: Present: hearing grossly normal - Respiratory Respiratory: bilateral: CTA - Cardiovascular Rhythm: regular Heart sounds: normal: S1, S2 Abnormal Heart Sounds: Absent: systolic murmur, diastolic murmur, rub, S3 Gallop, S4 Gallop, click, other - Peripheral edema leg Peripheral Edema: bilateral: None - Gastrointestinal General gastrointestinal: Present: normal bowel sounds, soft - Musculoskeletal Musculoskeletal: Present: generalized weakness - Psychiatric Psychiatric: Present: A&O x's 3, appropriate affect, intact judgment & insight - Labs CBC & Chem 7: 10/07/21 05:57 10/06/21 06:54 Labs: Abnormal Lab Results - Last 24 Hours (Table) 10/06/21 10/06/21 10/06/21 Range/Units 06:54 15:28 17:15 WBC (4.50-10.00) X 10*3/uL Metamyelocytes % (0-0) % Myelocytes % (0-0) % Promyelocytes % (0-0) % Neutrophils # (Manual) (2.00-8.90) X 10*3/uL Lymphocytes # (Manual) (0.90-5.00) X 10*3/uL Eosinophils # (Manual) (0.04-0.35) X 10*3/uL POC Glucose (mg/dL) 271 H (75-99) mg/dL Vit D 1,25-Dihydroxy 95 H (20 - 79) pg/mL IgM 23.8 L (40.0-280.0) mg/dL 10/06/21 10/07/21 10/07/21 Range/Units 20:34 02:38 05:57 WBC 1.88 L (4.50-10.00) X 10*3/uL Metamyelocytes % 1 H (0-0) % Myelocytes % 5 H (0-0) % Promyelocytes % 4 H (0-0) % Neutrophils # (Manual) 0.47 L* (2.00-8.90) X 10*3/uL Lymphocytes # (Manual) 0.34 L (0.90-5.00) X 10*3/uL Eosinophils # (Manual) 0 L (0.04-0.35) X 10*3/uL POC Glucose (mg/dL) 208 H 114 H (75-99) mg/dL Vit D 1,25-Dihydroxy (20 - 79) pg/mL IgM (40.0-280.0) mg/dL 10/07/21 10/07/21 10/07/21 Range/Units 07:32 12:26 14:44 WBC (4.50-10.00) X 10*3/uL Metamyelocytes % (0-0) % Myelocytes % (0-0) % Promyelocytes % (0-0) % Neutrophils # (Manual) (2.00-8.90) X 10*3/uL Lymphocytes # (Manual) (0.90-5.00) X 10*3/uL Eosinophils # (Manual) (0.04-0.35) X 10*3/uL POC Glucose (mg/dL) 140 H 209 H 314 H (75-99) mg/dL Vit D 1,25-Dihydroxy (20 - 79) pg/mL IgM (40.0-280.0) mg/dL - Imaging and Cardiology MRI - head: report reviewed Assessment and Plan (1) Neutropenia Current Visit: Yes Status: Acute Priority: High Code(s): D70.9 - NEUTROPENIA, UNSPECIFIED SNOMED Code(s): 537702271 (2) Leukopenia Current Visit: Yes Status: Acute Priority: High Code(s): D72.819 - DECREASED WHITE BLOOD CELL COUNT, UNSPECIFIED SNOMED Code(s): 83506467 Plan: Oral MS med held on admit. Her leukopenia and absolute neutropenia- ANC 0 on admit-has improved today. WBC is 1.8, ANC is 0.47. Workup for leukopenia so far is negative, still some results pending. CBC in the a.m. Recommended to patient that she follow very closely with her PCP for CBC monitoring. Hopefully, count dropped due to an MS exacerbation and as she recovers her counts will recover and she can safely go back on her MS medications.
[2021-10-07 15:36] LABS: Rheumatoid Factor, Qnt <10 IU/mL (0-15)
--- NOTE | 2021-10-07 15:46 | P.PCN ---
Date of Procedure: 10/07/21 Description of Procedure: Procedure: 1 Lumbar puncture for CSF collection PREOPERATIVE DIAGNOSIS: Suspicious for normal pressure hydrocephalus, and diagnosed multiple sclerosis POSTOPERATIVE DIAGNOSIS: Suspicious of normal pressure hydrocephalus, and history of multiple sclerosis SURGEON: Kaushik Donato ANESTHESIA: Local with 1% lidocaine, and IV sedation : None EBL: None. Specimen removed: A total of 21 mL of CSF collected in 4 specimen tubes. Opening pressure: 13 cm . PROCEDURE INDICATION: The patient had history of syncopal, and history of multiple sclerosis. Consulted for lumbar puncture for CSF opening pressure, large volume of CSF drainage PROCEDURE DESCRIPTION: The patient was seen and identified. Risks, benefits, complications, and alternatives were discussed with the patient. The patient agreed to proceed with the procedure and signed the consent, and vital signs were stable. Patient was taken to the procedure area, and time out was completed. The patient was placed in left lateral position on procedure. . The lumbosacral area was prepped with ChloraPrep 2 and draped in the usual sterile fashion. Critical pause was taken. Vital signs were closely monitored during the procedure. Posterior superior iliac crest landmarks was identified . The midline lumbar space also identified. Approximately at the level of L4-L5 interspinous space, skin and deeper tissues were localized with 6 mL of 1% lidocaine. Using a 22 gauge 3.5 spinal needle entered into subarachnoid space, with 3 attempt ( patient had difficult time in lying down in lateral position). Clear CSF came out of the spinal needle. 6mL of CSF fluid collected in each tube 3, , and 3 mL of 1 CSF tube . Needle was withdrawn intact, skin was cleansed, and bandages were applied. COMPLICATIONS: None. DISPOSITION / PLANS: The patient was placed in a supine position and transferred to the recovery area in a stable condition for observation. Patient was discharged from the recovery room after meeting discharge criteria. Home discharge instructions given to the patient by the staff. The patient was reexamined prior to discharge.
[2021-10-07] MEDS: LEVOFLOXACIN 500MG-D5W PMX 500 MG in DEXTROSE/WATER 1 100ML.BAG IVPB SCH (16:37)
[2021-10-07 17:28] LABS: Glucose,Whole Blood 203 mg/dL (75-99)
[2021-10-07 18:25] LABS: Glucose,CSF 120 mg/dL (40-70); Total Protein,CSF 57 mg/dL (12-60)
[2021-10-07 18:55] LABS: Appearance,CSF Clear; CSF Tube Number 4; CSF Tube Volume 7; Nucleated Cells, CSF 1 u/L (0-5); Red Blood Cell,CSF 0 u/L (0-10)
[2021-10-07 19:34] LABS: Iron 69 ug/dL (50-170)
[2021-10-07 19:44] LABS: Glucose,Whole Blood 199 mg/dL (75-99)
[2021-10-07 20:00] LABS: % Iron Saturation 21.74 (12.00-45.00); LDH 301 U/L (120-246); Total Iron Binding Capacity 318 ug/dL (228-460)
[2021-10-08] MEDS: SODIUM CHLORIDE 0.9% 1,000 ML IV SCH ×2 (04:16→19:06)
[2021-10-08 08:32] LABS: Glucose,Whole Blood 283 mg/dL (75-99)
[2021-10-08] MEDS: INSULIN ASPART (NovoLOG) 100 UNIT/ML VIAL SQ SCH ×7 (08:53→20:35)
[2021-10-08] MEDS: lisinopriL 5 MG TAB PO SCH (08:54)
[2021-10-08] MEDS: PANTOPRAZOLE 40 MG TABLET PO SCH (08:54)
[2021-10-08] MEDS: ACYCLOVIR 200 MG CAP PO SCH ×2 (08:54→20:34)
[2021-10-08] MEDS: NON FORMULARY DRUG (Dalfampridine [Dalfampridine Er] 10 MG Tab.Er.12h) PO SCH ×2 (08:55→20:38)
[2021-10-08] MEDS: HEPARIN SODIUM,PORCINE/PF 5,000 UNIT/0.5 ML SYRINGE SQ SCH ×3 (08:55→20:55)
[2021-10-08] MEDS: methylPREDNISolone SOD SUCCIN 500 MG in SODIUM CHLORIDE 0.9% 100 ML IVPB SCH ×2 (08:58→20:54)
--- NOTE | 2021-10-08 09:17 | P.PN ---
Subjective Progress Note Date: 10/07/21 10/07/2021: Patient was seen for a follow-up. Patient is sitting in the recliner with legs propped up. She appears comfortable. Patient's was also present. Patient and her states that she is doing much better. She walked in the hallway with assistance and with her walker. She does drag the right leg which is usual. She is about 50% better, not all the way to baseline. She states that she cannot walk too fast. Patient's states that he called the ambulance because patient slid out of chair and could not get up. The first time it happened, he called their son, who helped her up. But after the second time she slid down in her chair, he called the ambulance to be checked out. He states that patient uses a 4 pronged cane in home. She also has a 3 wheeled walker which she sometimes uses. 10/06/2021: Patient initially seen by Dr. Manish Leal. Please refer to his note for details. Patient is a 66-year-old female with history of MS, came to the hospital for worsening of the right side. Has not followed up with a neurologist for one year. Patient has been started on Solu-Medrol 500 mg IV twice a day. Patient however tells me that she got dizzy and fell at home. She states that she has MS for 23 years. She follows up with neurologist, based in [facility]. Objective - Vital Signs Vital signs: Vital Signs Temp 97.5 F L 10/07/21 08:00 Pulse 75 10/07/21 09:18 Resp 16 10/07/21 09:18 BP 161/84 10/07/21 08:00 Pulse Ox 94 L 10/07/21 08:00 Intake & Output 10/06/21 10/07/21 10/07/21 18:59 06:59 18:59 Intake Total 516 Balance 516 Intake: Intake, IV Titration 100 Amount methylPREDNISolone SOD 100 SUCCIN 500 mg In Sodium Chloride 0.9% 100 ml @ 100 mls/hr IVPB BID INGE Rx#:[id number] Oral 416 Other: Voiding Method External Catheter Bedside Commode # Voids 3 4 - Exam On examination patient's mental status, speech and language functions are normal. Cranial nerves are normal. On muscle strength testing, the strength is normal in the arms and legs, except (right/left) hip flexion 4/5-, ankle dorsiflexion 2/4+5-. Reflexes are (right/left) biceps trace/2+3, brachioradialis trace/2+. In the lower extremities knee 3/3, ankles 1+/2+. Plantars are upgoing bilaterally. No obvious ataxia for [id number]-[id number] testing. Sensations equal. Gait deferred. - Labs CBC & Chem 7: 10/07/21 05:57 10/06/21 06:54 Labs: Abnormal Lab Results - Last 24 Hours (Table) 10/06/21 10/06/21 10/06/21 Range/Units 06:54 06:54 12:14 WBC 1.47 L* (4.50-10.00) X 10*3/uL MCV 97.7 H (80.0-97.0) fL Myelocytes % 2 H (0-0) % Promyelocytes % 1 H (0-0) % Neutrophils # (Manual) 0.06 L* (2.00-8.90) X 10*3/uL Lymphocytes # (Manual) 0.41 L (0.90-5.00) X 10*3/uL Eosinophils # (Manual) 0 L (0.04-0.35) X 10*3/uL BUN/Creatinine Ratio 20.33 H (12.00-20.00) Ratio Glucose 161 H (70-110) mg/dL POC Glucose (mg/dL) 149 H (75-99) mg/dL Total Bilirubin 0.20 L (0.30-1.20) mg/dL IgM (40.0-280.0) mg/dL 10/06/21 10/06/21 10/06/21 Range/Units 15:28 17:15 20:34 WBC (4.50-10.00) X 10*3/uL MCV (80.0-97.0) fL Myelocytes % (0-0) % Promyelocytes % (0-0) % Neutrophils # (Manual) (2.00-8.90) X 10*3/uL Lymphocytes # (Manual) (0.90-5.00) X 10*3/uL Eosinophils # (Manual) (0.04-0.35) X 10*3/uL BUN/Creatinine Ratio (12.00-20.00) Ratio Glucose (70-110) mg/dL POC Glucose (mg/dL) 271 H 208 H (75-99) mg/dL Total Bilirubin (0.30-1.20) mg/dL IgM 23.8 L (40.0-280.0) mg/dL 10/07/21 10/07/21 Range/Units 02:38 07:32 WBC (4.50-10.00) X 10*3/uL MCV (80.0-97.0) fL Myelocytes % (0-0) % Promyelocytes % (0-0) % Neutrophils # (Manual) (2.00-8.90) X 10*3/uL Lymphocytes # (Manual) (0.90-5.00) X 10*3/uL Eosinophils # (Manual) (0.04-0.35) X 10*3/uL BUN/Creatinine Ratio (12.00-20.00) Ratio Glucose (70-110) mg/dL POC Glucose (mg/dL) 114 H 140 H (75-99) mg/dL Total Bilirubin (0.30-1.20) mg/dL IgM (40.0-280.0) mg/dL Assessment and Plan Assessment: Worsening of the right-sided weakness and recurrent falls likely on the basis of acute MS exacerbation. 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 No significant change from prior MRI. No definitive new or enhanci ng lesions. Underlying hydrocephalus redemonstrated without significant change. I personally reviewed MRI of the brain, agree with the findings. The hydrocephalus is somewhat prominent. MRI of the cervical spine showed suspected 3 areas of demyelinating disease involvement of the cervical spinal cord. No enhancing lesions are identified. Subtle spondylolisthesis with multilevel degenerative changes as detailed above. Await MRI of the brain and cervical spine w/ and w/o. I personally reviewed MRI of the cervical spine and agree with the findings. Continue Solu-Medrol 500 mg IV twice a day and recommend for 5 days. Patient will undergo therapeutic lumbar puncture, for large volume tap, to see if it helps with her gait further. We'll also check for MS panel. If the large-volume spinal tap helps, would recommend patient follow up with neurosurgeon for possible ventriculoperitoneal shunting. Since the patient started on IV Solu-Medrol recommend sugar monitoring and we'll defer the management to the primary team TSH 1.42, vitamin B12 577, folate 19.8, vitamin D 25.5. Hepatitis panel negative. Patient is on fall precaution. PT and OT. We'll defer the rest of the medical management to the primary team For GI prophylaxis started on Protonix For DVT prophylaxis patient is on subcu heparin Upon discharge the patient needs to follow-up with a neurologist as outpatient within 1-2 weeks, Lumbar puncture revealed WBC 1, RBC 0, glucose 120, protein 57 all normal. MS panel pending. CSF opening pressure was 13 cm. 21 mL of spinal fluid was removed. We will follow clinically.
[2021-10-08] MEDS ORDERED: lisinopriL 5 MG TAB PO STA (09:20)
[2021-10-08] MEDS ORDERED: INSULIN DETEMIR (LEVEMIR) 100 UNIT/ML SYR SQ SCH (10:00)
[2021-10-08 11:40] LABS: Glucose,Whole Blood 284 mg/dL (75-99)
[2021-10-08 11:58] LABS: HCT 39.3 % (37.2-46.3); HGB 12.9 g/dL (12.0-15.0); MCH 30.9 pg (27.0-32.0); MCHC 32.8 g/dL (32.0-37.0); MCV 94.2 fL (80.0-97.0); Mean Platelet Volume 10.9 fL (9.5-12.2); NRBC Per 100 WBC 0.5 /100 WBCS (0.0-0.0); Platelet Count 321 X 10*3/uL (140-440); RBC 4.17 X 10*6/uL (4.10-5.20); RDW 12.5 % (11.5-14.5); WBC 3.73 X 10*3/uL (4.50-10.00)
[2021-10-08 11:59] LABS: Basophils # (M) 0 X 10*3/uL (0.00-0.10); Eosinophils # (M) 0 X 10*3/uL (0.04-0.35); Lymphocytes # (M) 0.71 X 10*3/uL (0.90-5.00); Metamyelocytes % 7 % (0-0); Monocytes # (M) 0.71 X 10*3/uL (0.20-1.00); Myelocytes % 8 % (0-0); Neutrophils % (M) 43 %; Promyelocytes % 4 % (0-0); RBC Morphology NORMAL
[2021-10-08 13:23] LABS: Albumin 3.71 g/dL (3.80-4.90); Gamma Globulin 0.77 g/dL (0.70-1.50)
--- NOTE | 2021-10-08 14:30 | P.PN ---
Subjective Progress Note Date: 10/08/21 Principal diagnosis: Neutropenia Patient is feeling better and her WBC are returning to recovery and safe range. She states she would categorize this MS flair as one of her top worse flairs. Objective - Vital Signs Vital signs: Vital Signs Temp 97.7 F 10/08/21 08:00 Pulse 82 10/08/21 08:00 Resp 18 10/08/21 08:00 BP 164/84 10/08/21 08:00 Pulse Ox 98 10/08/21 08:00 Intake & Output 10/07/21 10/08/21 10/08/21 18:59 06:59 18:59 Intake Total 50 90 Balance 50 90 Intake: IV 50 Oral 90 Other: Voiding Method Bedside Commode Bedside Commode # Voids 3 2 - Labs CBC & Chem 7: 10/08/21 06:32 10/06/21 06:54 Labs: Abnormal Lab Results - Last 24 Hours (Table) 10/06/21 10/06/21 10/06/21 Range/Units 06:54 15:28 15:28 WBC (4.50-10.00) X 10*3/uL Absolute Nucleated RBC (0.00-0.00) X 10*3/uL Metamyelocytes % (0-0) % Myelocytes % (0-0) % Promyelocytes % (0-0) % Neutrophils # (Manual) (2.00-8.90) X 10*3/uL Lymphocytes # (Manual) (0.90-5.00) X 10*3/uL Eosinophils # (Manual) (0.04-0.35) X 10*3/uL NRBC/100 WBC Diff (0.0-0.0) /100 WBCS POC Glucose (mg/dL) (75-99) mg/dL Lactate Dehydrogenase 301 H (120-246) U/L C-Reactive Protein 4.40 H (0.00-0.80) mg/dL Albumin (PEP) 3.71 L (3.80-4.90) g/dL Vit D 1,25-Dihydroxy 95 H (20 - 79) pg/mL CSF Glucose (40-70) mg/dL 10/07/21 10/07/21 10/07/21 Range/Units 14:44 15:10 17:25 WBC (4.50-10.00) X 10*3/uL Absolute Nucleated RBC (0.00-0.00) X 10*3/uL Metamyelocytes % (0-0) % Myelocytes % (0-0) % Promyelocytes % (0-0) % Neutrophils # (Manual) (2.00-8.90) X 10*3/uL Lymphocytes # (Manual) (0.90-5.00) X 10*3/uL Eosinophils # (Manual) (0.04-0.35) X 10*3/uL NRBC/100 WBC Diff (0.0-0.0) /100 WBCS POC Glucose (mg/dL) 314 H 203 H (75-99) mg/dL Lactate Dehydrogenase (120-246) U/L C-Reactive Protein (0.00-0.80) mg/dL Albumin (PEP) (3.80-4.90) g/dL Vit D 1,25-Dihydroxy (20 - 79) pg/mL CSF Glucose 120 H (40-70) mg/dL 10/07/21 10/08/21 10/08/21 Range/Units 19:42 06:32 08:25 WBC 3.73 L (4.50-10.00) X 10*3/uL Absolute Nucleated RBC 0.02 H (0.00-0.00) X 10*3/uL Metamyelocytes % 7 H (0-0) % Myelocytes % 8 H (0-0) % Promyelocytes % 4 H (0-0) % Neutrophils # (Manual) 1.60 L (2.00-8.90) X 10*3/uL Lymphocytes # (Manual) 0.71 L (0.90-5.00) X 10*3/uL Eosinophils # (Manual) 0 L (0.04-0.35) X 10*3/uL NRBC/100 WBC Diff 0.5 H (0.0-0.0) /100 WBCS POC Glucose (mg/dL) 199 H 283 H (75-99) mg/dL Lactate Dehydrogenase (120-246) U/L C-Reactive Protein (0.00-0.80) mg/dL Albumin (PEP) (3.80-4.90) g/dL Vit D 1,25-Dihydroxy (20 - 79) pg/mL CSF Glucose (40-70) mg/dL 10/08/21 Range/Units 11:32 WBC (4.50-10.00) X 10*3/uL Absolute Nucleated RBC (0.00-0.00) X 10*3/uL Metamyelocytes % (0-0) % Myelocytes % (0-0) % Promyelocytes % (0-0) % Neutrophils # (Manual) (2.00-8.90) X 10*3/uL Lymphocytes # (Manual) (0.90-5.00) X 10*3/uL Eosinophils # (Manual) (0.04-0.35) X 10*3/uL NRBC/100 WBC Diff (0.0-0.0) /100 WBCS POC Glucose (mg/dL) 284 H (75-99) mg/dL Lactate Dehydrogenase (120-246) U/L C-Reactive Protein (0.00-0.80) mg/dL Albumin (PEP) (3.80-4.90) g/dL Vit D 1,25-Dihydroxy (20 - 79) pg/mL CSF Glucose (40-70) mg/dL Microbiology - Last 24 Hours (Table) 10/07/21 15:10 CSF Gram Stain - Preliminary Cerebral Spinal Fluid CSF Culture - Preliminary Assessment and Plan (1) Exacerbation of multiple sclerosis Current Visit: Yes Status: Acute Code(s): G35 - MULTIPLE SCLEROSIS SNOMED Code(s): 175096636 (2) Leukopenia Narrative/Plan: - Mostly likely a combination of her Biologic therapy and Inflammation Improving as MS flair is improving Continue to monitor daily CBC Dr. Daley: I have completed the full history and physical and developed the above impression and plan, agree with dictation, dictated as a scribe, Current Visit: Yes Status: Acute Priority: High Code(s): D72.819 - DECREASED WHITE BLOOD CELL COUNT, UNSPECIFIED SNOMED Code(s): 09400699
[2021-10-08 14:53] LABS: Free Kappa Lt Chain Qnt, Serum 0.86 mg/dL (0.33-1.94); Free Lambda Lt Chain Qnt, Seru 1.31 mg/dL (0.57-2.63)
[2021-10-08] MEDS ORDERED: INSULIN REGULAR BOLUS (FROM DRIP BAG) IV ONE (15:54)
--- NOTE | 2021-10-08 15:57 | P.PN ---
Subjective Progress Note Date: 10/08/21 patient comes in with complaints of dizziness for couple days , she reports couple episodes of falling the past few days with no head injury or loss of consciousness. she is not on any blood thinners or blood pressure medications. she also noticed right leg weakness which are all typical of her MS flare up attacks . she denies any URI symptoms , UTI symptoms, abd pain nausea or vomiting, denies any chest pain or trouble breathing imaging in the ED, CT brain and CTA head and neck no acute pathology . blood work showed leukopenia 10/05/2021 Patient was admitted to the hospital due to acute MS exacerbation. Patient is currently resting in the bed. Awake alert oriented x3. Right-sided weakness is much improved. No complaints of chest pain or shortness breath. No nausea vomiting abdominal diarrhea. Patient is being continued on methylprednisolone 500 mg IVPB twice daily. Neurology is on board. 10/06/2021 Patient noted today sitting up in the chair. States the right-sided weakness continues to be improved. No acute events overnight. Oncology evaluation today with pending full work up for leukopenia. WBC today is 1.47, hemoglobin stable 13.7, platelet count 399. Electrolyte panel essentially unremarkable with the exception of blood glucose in the 140s. Oncology recommending prophylactic antibiotics and antiviral therapy. Brain cervical MRI currently pending. Patient is afebrile, heart rate 85, blood pressure 151/88, 98% room air. Continues on IVPB methylprednisolone and IV fluids. Appreciate neurology consult. 10/07/2021 Patient is evaluated today sitting in the chair, with chair alarm in place. No acute complaints. Patient had a staff assisted fall yesterday evening while walking to the bathroom. Patient denies hitting head, denies any dizziness or lightheadedness. States that she just felt like her legs were weak and gave out. Per patient has been falling at home, however patient denies when asked. Currently denies any pain, has full range of motion upper extremities. PT OT is in consult. Brain/cervical MRI was completed yesterday which shows muir spected 3 areas of demyelinating disease involvement in the cervical spinal cord with no enhancing lesions, subtle spondylo-listhesis with multilevel degenerative changes. Blood sugars are elevated in the 200s, will add a small dose of NovoLog with meals in addition to sliding scale as she still on IVPB steroids. Additional Labs are pending from today. Continues on IV antibiotics and PO antivral. Patient also elevated blood pressure 170s. We'll add a small dose of lisinopril today. 10/08/2021 Patient evaluated today in the bathroom getting ready for a shower. Patient underwent large volume spinal tap yesterday for possible NPH and monitor improvement of gait if any. Patient will require 2 more days of IVPB steroid therapy before discharge. PT/OT consultation that patient may return home with homecare however will need 24/ care. Patient asking to go home. Labs today white count 3.73, blood sugar is increasing into the high 200s. Will start patient on insulin gtt for now to better control blood sugar. A1C is 5.7. Current medications reviewed. Review of Systems Constitutional: Denied any fatigue denied any fever. Cardio vascular: denied any chest pain, palpitations Gastrointestinal: denied any nausea, vomiting, diarrhea Pulmonary: Denied any shortness of breath cough Neurologic denied any new focal deficits All inpatient medications were reviewed and appropriate changes in these medications as dictated in the interval history and assessment and plan. PHYSICAL EXAMINATION: GENERAL: The patient is alert and oriented x3, not in any acute distress. Well developed, well nourished. HEENT: Pupils are round and equally reacting to light. EOMI. No scleral icterus. No conjunctival pallor. Normocephalic, atraumatic. No pharyngeal erythema. No thyromegaly. CARDIOVASCULAR: S1 and S2 present. No murmurs, rubs, or gallops. PULMONARY: Chest is clear to auscultation, no wheezing or crackles. ABDOMEN: Soft, nontender, nondistended, normoactive bowel sounds. No palpable organomegaly. MUSCULOSKELETAL: No joint swelling or deformity. EXTREMITIES: No cyanosis, clubbing, mild pedal edema NEUROLOGICAL: Mild RLE weakness. SKIN: No rashes. Assessment and plan Assessment Acute MS Exacerbation with no pathological lesions found on imaging Leukopenia, mostly a side effect of medication, labs are normalizing Generalized weakness with frequent falling at home with staff assisted fall yesterday PT eval fall precautions monitor vital signs neuro checks Patient will be continued on mother's prednisone 500 mg IVPB twice daily. Neurology is following. Patient is also on dalfampridine every 12 hours, which will need to be brought from home for patient to continue; non-formulary Hypertension, no history of hypertension, not on medications at home Steroid inducted hyperglycemia Elevated random blood glucose on admission prior to patient being started on IV steroids GI Prophylaxis DVT Prophylaxis Full code Plan Continue IV steroids as per neurology Insulin gtt ordered for glycemic control Continue with fall precautions PT/OT evaluation The impression and plan of care has been dictated by Kelsey Roa, Nurse Practitioner as directed. Dr. Skyla MD I have performed a history and physical examination and medical decision making of this patient, discussed the same with the dictator, and agree with the dictators assessment and plan as written, documented as a scribe. Based on total visit time, I have performed more than 50% of this visit. Objective - Vital Signs Vital signs: Vital Signs Temp 97.7 F 10/08/21 08:00 Pulse 82 10/08/21 08:00 Resp 18 10/08/21 08:00 BP 164/84 10/08/21 08:00 Pulse Ox 98 10/08/21 08:00 Intake & Output 10/07/21 10/08/21 10/08/21 18:59 06:59 18:59 Intake Total 50 90 Balance 50 90 Intake: IV 50 Oral 90 Other: Voiding Method Bedside Commode Bedside Commode # Voids 3 2 - Labs CBC & Chem 7: 10/08/21 06:32 10/06/21 06:54 Labs: Abnormal Lab Results - Last 24 Hours (Table) 10/06/21 10/06/21 10/07/21 Range/Units 06:54 15:28 14:44 WBC (4.50-10.00) X 10*3/uL Absolute Nucleated RBC (0.00-0.00) X 10*3/uL Metamyelocytes % (0-0) % Myelocytes % (0-0) % Promyelocytes % (0-0) % Neutrophils # (Manual) (2.00-8.90) X 10*3/uL Lymphocytes # (Manual) (0.90-5.00) X 10*3/uL Eosinophils # (Manual) (0.04-0.35) X 10*3/uL NRBC/100 WBC Diff (0.0-0.0) /100 WBCS POC Glucose (mg/dL) 314 H (75-99) mg/dL Lactate Dehydrogenase 301 H (120-246) U/L C-Reactive Protein 4.40 H (0.00-0.80) mg/dL Vit D 1,25-Dihydroxy 95 H (20 - 79) pg/mL CSF Glucose (40-70) mg/dL 10/07/21 10/07/21 10/07/21 Range/Units 15:10 17:25 19:42 WBC (4.50-10.00) X 10*3/uL Absolute Nucleated RBC (0.00-0.00) X 10*3/uL Metamyelocytes % (0-0) % Myelocytes % (0-0) % Promyelocytes % (0-0) % Neutrophils # (Manual) (2.00-8.90) X 10*3/uL Lymphocytes # (Manual) (0.90-5.00) X 10*3/uL Eosinophils # (Manual) (0.04-0.35) X 10*3/uL NRBC/100 WBC Diff (0.0-0.0) /100 WBCS POC Glucose (mg/dL) 203 H 199 H (75-99) mg/dL Lactate Dehydrogenase (120-246) U/L C-Reactive Protein (0.00-0.80) mg/dL Vit D 1,25-Dihydroxy (20 - 79) pg/mL CSF Glucose 120 H (40-70) mg/dL 10/08/21 10/08/21 10/08/21 Range/Units 06:32 08:25 11:32 WBC 3.73 L (4.50-10.00) X 10*3/uL Absolute Nucleated RBC 0.02 H (0.00-0.00) X 10*3/uL Metamyelocytes % 7 H (0-0) % Myelocytes % 8 H (0-0) % Promyelocytes % 4 H (0-0) % Neutrophils # (Manual) 1.60 L (2.00-8.90) X 10*3/uL Lymphocytes # (Manual) 0.71 L (0.90-5.00) X 10*3/uL Eosinophils # (Manual) 0 L (0.04-0.35) X 10*3/uL NRBC/100 WBC Diff 0.5 H (0.0-0.0) /100 WBCS POC Glucose (mg/dL) 283 H 284 H (75-99) mg/dL Lactate Dehydrogenase (120-246) U/L C-Reactive Protein (0.00-0.80) mg/dL Vit D 1,25-Dihydroxy (20 - 79) pg/mL CSF Glucose (40-70) mg/dL Microbiology - Last 24 Hours (Table) 10/07/21 15:10 CSF Gram Stain - Preliminary Cerebral Spinal Fluid CSF Culture - Preliminary Assessment and Plan Time with Patient: Less than 30
[2021-10-08] MEDS ORDERED: INSULIN REGULAR 100 UNIT in SODIUM CHLORIDE 0.9% 100 ML IV SCH (16:00)
[2021-10-08 16:19] LABS: Glucose,Whole Blood 238 mg/dL (75-99)
[2021-10-08 16:50] LABS: Glucose,Whole Blood 211 mg/dL (75-99)
[2021-10-08] MEDS ORDERED: INSULIN ASPART (NovoLOG) 100 UNIT/ML VIAL SQ SCH (17:30)
[2021-10-08 20:19] LABS: Glucose,Whole Blood 216 mg/dL (75-99)
[2021-10-09 02:32] LABS: Glucose,Whole Blood 133 mg/dL (75-99)
[2021-10-09] MEDS: INSULIN ASPART (NovoLOG) 100 UNIT/ML VIAL SQ SCH ×3 (02:48→08:35)
[2021-10-09] MEDS ORDERED: INSULIN DETEMIR (LEVEMIR) 100 UNIT/ML SYR SQ SCH (07:00)
[2021-10-09 08:00] LABS: Glucose,Whole Blood 94 mg/dL (75-99)
[2021-10-09] MEDS: HEPARIN SODIUM,PORCINE/PF 5,000 UNIT/0.5 ML SYRINGE SQ SCH ×2 (08:36→08:39)
[2021-10-09] MEDS: PANTOPRAZOLE 40 MG TABLET PO SCH (08:36)
[2021-10-09] MEDS: ACYCLOVIR 200 MG CAP PO SCH (08:36)
[2021-10-09] MEDS: SODIUM CHLORIDE 0.9% 1,000 ML IV SCH (08:37)
--- NOTE | 2021-10-09 08:43 | P.PN ---
Subjective Progress Note Date: 10/08/21 10/08/2021: Patient was seen for a follow-up. Patient appears very pleasant, sitting comfortably in the recliner. Patient states that she is feeling much better. Offers no new complaints. 10/07/2021: Patient was seen for a follow-up. Patient is sitting in the recliner with legs propped up. She appears comfortable. Patient's was also present. Patient and her states that she is doing much better. She walked in the hallway with assistance and with her walker. She does drag the right leg which is usual. She is about 50% better, not all the way to baseline. She states that she cannot walk too fast. Patient's states that he called the ambulance because patient slid out of chair and could not get up. The first time it happened, he called their son, who helped her up. But after the second time she slid down in her chair, he called the ambulance to be checked out. He states that patient uses a 4 pronged cane in home. She also has a 3 wheeled walker which she sometimes uses. 10/06/2021: Patient initially seen by Dr. Manish Leal. Please refer to his note for details. Patient is a 66-year-old female with history of MS, came to the hospital for worsening of the right side. Has not followed up with a neurologist for one year. Patient has been started on Solu-Medrol 500 mg IV twice a day. Patient however tells me that she got dizzy and fell at home. She states that she has MS for 23 years. She follows up with neurologist, based in [facility]. Objective - Vital Signs Vital signs: Vital Signs Temp 98.4 F 10/09/21 01:41 Pulse 71 10/09/21 01:41 Resp 16 10/09/21 01:41 BP 159/85 10/09/21 01:41 Pulse Ox 97 10/09/21 01:41 Intake & Output 10/08/21 10/09/21 10/09/21 18:59 06:59 18:59 Intake Total 330 Balance 330 Intake: Oral 330 Other: Voiding Method Bedside Commode Bedside Commode # Voids 2 1 - Exam On examination patient's mental status, speech and language functions are yessica l. Cranial nerves are normal. On muscle strength testing, the strength is normal in the arms and legs, except (right/left) hip flexion 4/5-, ankle dorsiflexion 2/4+5-. Reflexes are (right/left) biceps trace/2+3, brachioradialis trace/2+. In the lower extremities knee 3/3, ankles 1+/2+. Plantars are upgoing bilaterally. No obvious ataxia for [id number] testing. Sensations equal. Gait deferred. - Labs CBC & Chem 7: 10/08/21 06:32 10/06/21 06:54 Labs: Abnormal Lab Results - Last 24 Hours (Table) 10/06/21 10/08/21 10/08/21 Range/Units 15:28 06:32 11:32 WBC 3.73 L (4.50-10.00) X 10*3/uL Absolute Nucleated RBC 0.02 H (0.00-0.00) X 10*3/uL Metamyelocytes % 7 H (0-0) % Myelocytes % 8 H (0-0) % Promyelocytes % 4 H (0-0) % Neutrophils # (Manual) 1.60 L (2.00-8.90) X 10*3/uL Lymphocytes # (Manual) 0.71 L (0.90-5.00) X 10*3/uL Eosinophils # (Manual) 0 L (0.04-0.35) X 10*3/uL NRBC/100 WBC Diff 0.5 H (0.0-0.0) /100 WBCS POC Glucose (mg/dL) 284 H (75-99) mg/dL Albumin (PEP) 3.71 L (3.80-4.90) g/dL 10/08/21 10/08/21 10/08/21 Range/Units 16:17 16:46 20:19 WBC (4.50-10.00) X 10*3/uL Absolute Nucleated RBC (0.00-0.00) X 10*3/uL Metamyelocytes % (0-0) % Myelocytes % (0-0) % Promyelocytes % (0-0) % Neutrophils # (Manual) (2.00-8.90) X 10*3/uL Lymphocytes # (Manual) (0.90-5.00) X 10*3/uL Eosinophils # (Manual) (0.04-0.35) X 10*3/uL NRBC/100 WBC Diff (0.0-0.0) /100 WBCS POC Glucose (mg/dL) 238 H 211 H 216 H (75-99) mg/dL Albumin (PEP) (3.80-4.90) g/dL 10/09/21 Range/Units 02:30 WBC (4.50-10.00) X 10*3/uL Absolute Nucleated RBC (0.00-0.00) X 10*3/uL Metamyelocytes % (0-0) % Myelocytes % (0-0) % Promyelocytes % (0-0) % Neutrophils # (Manual) (2.00-8.90) X 10*3/uL Lymphocytes # (Manual) (0.90-5.00) X 10*3/uL Eosinophils # (Manual) (0.04-0.35) X 10*3/uL NRBC/100 WBC Diff (0.0-0.0) /100 WBCS POC Glucose (mg/dL) 133 H (75-99) mg/dL Albumin (PEP) (3.80-4.90) g/dL Microbiology - Last 24 Hours (Table) 10/07/21 15:10 CSF Gram Stain - Preliminary Cerebral Spinal Fluid CSF Culture - Preliminary Assessment and Plan Assessment: Worsening of the right-sided weakness and recurrent falls likely on the basis of acute MS exacerbation. History of multiple sclerosis for 20 years (but notified me that she has not followed-up with her neurologist for the past one year) Probable some component of normal pressure hydrocephalus Cognitive impairment/Dementia Leukopenia due to medication effect (Kesimpta) Plan: MRI of the brain revealed mild to moderate diffuse cerebral atrophy with advanced nonspecific white matter changes may be on the basis of known multiple sclerosis. No significant change from prior MRI. No definitive new or enhancing lesions. Underlying hydrocephalus redemonstrated without significant change. I personally reviewed MRI of the brain, agree with the findings. The hydrocephalus is somewhat prominent. MRI of the cervical spine showed suspected 3 areas of demyelinating disease involvement of the cervical spinal cord. No enhancing lesions are identified. Subtle spondylolisthesis with multilevel degenerative changes as detailed above. Await MRI of the brain and cervical spine w/ and w/o. I personally reviewed MRI of the cervical spine and agree with the findings. Continue Solu-Medrol 500 mg IV twice a day and recommend for 5 days. Today is day #4. Since the patient started on IV Solu-Medrol recommend sugar monitoring and we'll defer the management to the primary team TSH 1.42, vitamin B12 577, folate 19.8, vitamin D 25.5. Hepatitis panel negative. Patient is on fall precaution. PT and OT. Lumbar puncture revealed WBC 1, RBC 0, glucose 120, protein 57 all normal. MS panel pending. CSF opening pressure was 13 cm. 21 mL of spinal fluid was removed. Patient states she is doing better, and her gait has improved. We will check with patient's for collateral history as well. Probable discharge in the morning.
[2021-10-09] MEDS ORDERED: lisinopriL 10 MG TAB PO SCH (09:00)
[2021-10-09 09:02] VITALS: BMI 29.2
[2021-10-09 09:24] LABS: African American GFR (CKD) 77.2 (60.0-200.0); Anion Gap 10.5 mmol/L (10.00-18.00); BUN/Creat Ratio 26.56 Ratio (12.00-20.00); Blood Urea Nitrogen 23.9 mg/dL (9.0-27.0); Calcium 8.5 mg/dL (8.7-10.3); Carbon Dioxide 27.5 mmol/L (20.0-27.5); Non-African American GFR(CKD) 66.6 (60.0-200.0); Potassium 3.6 mmol/L (3.5-5.5)
[2021-10-09 09:27] VITALS: BP 178/97; RESP 18; TEMP 97.5
--- NOTE | 2021-10-09 09:44 | P.PN ---
Subjective Progress Note Date: 10/09/21 10/09/2021: Patient appears very happy, states feeling much better. States her gait has improved. She feels back to normal. She still uses a walker. She drags her right leg. No new concerns. No headache. MRI of the brain revealed mild to moderate diffuse cerebral atrophy with advanced nonspecific white matter changes may be on the basis of known multiple sclerosis. No significant change from prior MRI. No definitive new or enhancing lesions. Underlying hydrocephalus redemonstrated without significant change. I personally reviewed MRI of the brain, agree with the findings. The hydrocephalus is somewhat prominent. MRI of the cervical spine showed suspected 3 areas of demyelinating disease involvement of the cervical spinal cord. No enhancing lesions are identified. Subtle spondylolisthesis with multilevel degenerative changes as detailed above. Await MRI of the brain and cervical spine w/ and w/o. I personally reviewed MRI of the cervical spine and agree with the findings. Lumbar puncture revealed WBC 1, RBC 0, glucose 120, protein 57 all normal. MS panel pending. CSF opening pressure was 13 cm. 21 mL of spinal fluid was removed. 10/08/2021: Patient was seen for a follow-up. Patient appears very pleasant, sitting comfortably in the recliner. Patient states that she is feeling much better. Offers no new complaints. 10/07/2021: Patient was seen for a follow-up. Patient is sitting in the recliner with legs propped up. She appears comfortable. Patient's was also present. Patient and her states that she is doing much better. She walked in the hallway with assistance and with her walker. She does drag the right leg which is usual. She is about 50% better, not all the way to baseline. She states that she cannot walk too fast. Patient's states that he called the ambulance because patient slid out of chair and could not get up. The first time it happened, he called their son, who helped her up. But after the second time she slid down in her chair, he called the ambulance to be checked out. He states that patient uses a 4 pronged cane in home. She also has a 3 wheeled walker which she sometimes uses. 10/06/2021: Patient initially seen by Dr. Manish Leal. Please refer to his note for details. Patient is a 66-year-old female with history of MS, came to the hospital for worsening of the right side. Has not followed up with a neurologist for one year. Patient has been started on Solu-Medrol 500 mg IV twice a day. Patient however tells me that she got dizzy and fell at home. She states that she has MS for 23 years. She follows up with neurologist, based in [facility]. Objective - Vital Signs Vital signs: Vital Signs Temp 97.5 F L 10/09/21 08:00 Pulse 74 10/09/21 08:00 Resp 18 10/09/21 08:00 BP 178/97 10/09/21 08:00 Pulse Ox 94 L 10/09/21 08:00 Intake & Output 10/08/21 10/09/21 10/09/21 18:59 06:59 18:59 Intake Total 330 Balance 330 Weight 72.575 kg Intake: Oral 330 Other: Voiding Method Bedside Commode Bedside Commode # Voids 2 1 - Exam On examination patient's mental status, speech is mildly dysarthric and language functions are normal. Her memory functions are not the best, as she does remember her medications she is on. Her remembers all details. Cranial nerves significant for minimal left facial droopiness which was present before as well. On muscle strength testing, the strength is normal in the arms and legs, except (right/left) hip flexion 3 to 3-/4-, ankle dorsiflexion 2/4+5-. Reflexes are (right/left) biceps trace/2+3, brachioradialis trace/2+. In the lower extremities knee 3/3, ankles 1+/2+. Plantars are upgoing bilaterally. No obvious ataxia for [id number] testing. Sensations equal. Patient able to get up by herself. She walks with a walker. She appeared quite steady. She does drag her right leg with spastic gait on the right side. - Labs CBC & Chem 7: 10/09/21 06:47 10/09/21 06:47 Labs: Abnormal Lab Results - Last 24 Hours (Table) 10/06/21 10/08/21 10/08/21 Range/Units 15:28 06:32 11:32 WBC 3.73 L (4.50-10.00) X 10*3/uL Absolute Nucleated RBC 0.02 H (0.00-0.00) X 10*3/uL Metamyelocytes % 7 H (0-0) % Myelocytes % 8 H (0-0) % Promyelocytes % 4 H (0-0) % Neutrophils # (Manual) 1.60 L (2.00-8.90) X 10*3/uL Lymphocytes # (Manual) 0.71 L (0.90-5.00) X 10*3/uL Eosinophils # (Manual) 0 L (0.04-0.35) X 10*3/uL NRBC/100 WBC Diff 0.5 H (0.0-0.0) /100 WBCS BUN/Creatinine Ratio (12.00-20.00) Ratio POC Glucose (mg/dL) 284 H (75-99) mg/dL Calcium (8.7-10.3) mg/dL Albumin (PEP) 3.71 L (3.80-4.90) g/dL 10/08/21 10/08/21 10/08/21 Range/Units 16:17 16:46 20:19 WBC (4.50-10.00) X 10*3/uL Absolute Nucleated RBC (0.00-0.00) X 10*3/uL Metamyelocytes % (0-0) % Myelocytes % (0-0) % Promyelocytes % (0-0) % Neutrophils # (Manual) (2.00-8.90) X 10*3/uL Lymphocytes # (Manual) (0.90-5.00) X 10*3/uL Eosinophils # (Manual) (0.04-0.35) X 10*3/uL NRBC/100 WBC Diff (0.0-0.0) /100 WBCS BUN/Creatinine Ratio (12.00-20.00) Ratio POC Glucose (mg/dL) 238 H 211 H 216 H (75-99) mg/dL Calcium (8.7-10.3) mg/dL Albumin (PEP) (3.80-4.90) g/dL 10/09/21 10/09/21 Range/Units 02:30 06:47 WBC (4.50-10.00) X 10*3/uL Absolute Nucleated RBC (0.00-0.00) X 10*3/uL Metamyelocytes % (0-0) % Myelocytes % (0-0) % Promyelocytes % (0-0) % Neutrophils # (Manual) (2.00-8.90) X 10*3/uL Lymphocytes # (Manual) (0.90-5.00) X 10*3/uL Eosinophils # (Manual) (0.04-0.35) X 10*3/uL NRBC/100 WBC Diff (0.0-0.0) /100 WBCS BUN/Creatinine Ratio 26.56 H (12.00-20.00) Ratio POC Glucose (mg/dL) 133 H (75-99) mg/dL Calcium 8.5 L (8.7-10.3) mg/dL Albumin (PEP) (3.80-4.90) g/dL Microbiology - Last 24 Hours (Table) 10/07/21 15:10 CSF Gram Stain - Preliminary Cerebral Spinal Fluid CSF Culture - Preliminary Assessment and Plan Assessment: Worsening of the right-sided weakness and recurrent falls likely on the basis of acute MS exacerbation. History of multiple sclerosis for 20 years (but notified me that she has not followed-up with her neurologist for the past one year) Probable some component of normal pressure hydrocephalus Cognitive impairment/Dementia Leukopenia due to medication effect (Kesimpta) Plan: Patient's gait is almost back to baseline. Suggest patient stop Kesimpta, which is likely the cause of severe neutropenia. Patient's states that she has previously tried Ocrevus and Tysabri in the past, and had suffered from side effects. She has never tried oral medications for MS. She could be considered on Aubagio or Tecfidera. Patient will follow-up with the new neurologist locally in town. Her previous neurologist retired. Spoke to patient's , he states that he will watch her gait at home. He will consider neurosurgical consultation (for possible NPH) as an outpatient, if her gait shows improvement after therapeutic lumbar puncture. Neurologically clear for discharge.
[2021-10-09 10:07] LABS: HCT 40.2 % (37.2-46.3); HGB 13.2 g/dL (12.0-15.0); MCH 31.1 pg (27.0-32.0); MCHC 32.8 g/dL (32.0-37.0); MCV 94.8 fL (80.0-97.0); Mean Platelet Volume 11.1 fL (9.5-12.2); Platelet Count 305 X 10*3/uL (140-440); RBC 4.24 X 10*6/uL (4.10-5.20); RDW 12.5 % (11.5-14.5); WBC 10.18 X 10*3/uL (4.50-10.00)
[2021-10-09] MEDS ORDERED: Potassium Replacement Protocol 1 EACH MISC MISCELLANE PRN (10:24)
[2021-10-09 10:29] LABS: Basophils # (M) 0 X 10*3/uL (0.00-0.10); Eosinophils # (M) 0 X 10*3/uL (0.04-0.35); Lymphocytes # (M) 1.53 X 10*3/uL (0.90-5.00); Metamyelocytes % 2 % (0-0); Monocytes # (M) 2.14 X 10*3/uL (0.20-1.00); Myelocytes % 11 % (0-0); Neutrophils # (M) 4.78 X 10*3/uL (2.00-8.90); Neutrophils % (M) 47 %; Promyelocytes % 4 % (0-0); RBC Morphology NORMAL
[2021-10-09 10:45] VITALS: PULSE 76
[2021-10-09] MEDS ORDERED: POTASSIUM CHLORIDE ER 20 MEQ TAB.ER PO SCH (11:00)
[2021-10-09 12:57] LABS: IgG - CSF 3.4 mg/dL (0.0 - 3.4); IgG/Albumin Index (CSF) 0.51 (0.00 - 0.77); Immunoglobulin G 803 mg/dL (700 - 1600)
--- NOTE | 2021-10-09 14:48 | P.PN ---
Subjective Progress Note Date: 10/09/21 Principal diagnosis: Neutropenia blood counts improving, planning discharge today Objective - Vital Signs Vital signs: Vital Signs Temp 97.5 F L 10/09/21 08:00 Pulse 76 10/09/21 08:00 Resp 18 10/09/21 08:00 BP 178/97 10/09/21 08:00 Pulse Ox 94 L 10/09/21 08:00 Intake & Output 10/08/21 10/09/21 10/09/21 18:59 06:59 18:59 Intake Total 330 118 Balance 330 118 Weight 72.575 kg Intake: Oral 330 118 Other: Voiding Method Bedside Commode Bedside Commode Bedside Commode # Voids 2 1 - Exam alert Weak and unstead Lungs CTA Abd soft No edema - Labs CBC & Chem 7: 10/09/21 06:47 10/09/21 06:47 Labs: Abnormal Lab Results - Last 24 Hours (Table) 10/08/21 10/08/21 10/08/21 Range/Units 16:17 16:46 20:19 WBC (4.50-10.00) X 10*3/uL Absolute Nucleated RBC (0.00-0.00) X 10*3/uL Metamyelocytes % (0-0) % Myelocytes % (0-0) % Promyelocytes % (0-0) % Monocytes # (Manual) (0.20-1.00) X 10*3/uL Eosinophils # (Manual) (0.04-0.35) X 10*3/uL NRBC/100 WBC Diff (0.0-0.0) /100 WBCS BUN/Creatinine Ratio (12.00-20.00) Ratio POC Glucose (mg/dL) 238 H 211 H 216 H (75-99) mg/dL Calcium (8.7-10.3) mg/dL 10/09/21 10/09/21 10/09/21 Range/Units 02:30 06:47 06:47 WBC 10.18 H (4.50-10.00) X 10*3/uL Absolute Nucleated RBC 0.10 H (0.00-0.00) X 10*3/uL Metamyelocytes % 2 H (0-0) % Myelocytes % 11 H (0-0) % Promyelocytes % 4 H (0-0) % Monocytes # (Manual) 2.14 H (0.20-1.00) X 10*3/uL Eosinophils # (Manual) 0 L (0.04-0.35) X 10*3/uL NRBC/100 WBC Diff 1.0 H (0.0-0.0) /100 WBCS BUN/Creatinine Ratio 26.56 H (12.00-20.00) Ratio POC Glucose (mg/dL) 133 H (75-99) mg/dL Calcium 8.5 L (8.7-10.3) mg/dL Microbiology - Last 24 Hours (Table) 10/07/21 15:10 CSF Gram Stain - Preliminary Cerebral Spinal Fluid CSF Culture - Preliminary Assessment and Plan (1) Exacerbation of multiple sclerosis Status: Acute Code(s): G35 - MULTIPLE SCLEROSIS SNOMED Code(s): 491778294 (2) Leukopenia Narrative/Plan: - Mostly likely a combination of her Biologic therapy and Inflammation Improving as MS flair is improving Continues to improve Continue monitoring as outpatient if not recovering please feel free to contact us Defer MS medicaiton to neurology Status: Acute Priority: High Code(s): D72.819 - DECREASED WHITE BLOOD CELL COUNT, UNSPECIFIED SNOMED Code(s): 35617363
--- NOTE | 2021-10-11 14:21 | P.DS ---
Providers Date of admission: 10/05/21 08:08 Attending physician: Celine Tompkins Consults: 10/04/21 20:03 Consult Physician Urgent Consulting Provider: Manish Leal Consult Reason/Comments: Exacerbation of MS Do you want consulting provider notified?: Already Contacted 10/05/21 16:05 Consult Physician Urgent Consulting Provider: Sarbjit Agustin Consult Reason/Comments: leukopenia, critical low white count and neutrophil count Do you want consulting provider notified?: Yes 10/07/21 12:25 Consult to Anesthesia Routine Consulting Provider: Anesthesia,Services Consult Reason/Comments: Probable NPH, large volume tap, also check OP Primary care physician: Georgi Hernandez [facility] Course: Final Diagnosis Acute MS Exacerbation with no pathological lesions found on imaging, presents with worsening right sided weakness History of multiple scelorsis for 20 years Leukopenia, mostly a side effect of medication from kesimpta (improving) Generalized weakness with frequent falling at home with staff assisted fall yesterday Possible normal pressure hydrocephalus s/p lumbar puncture Hypertension, with history of hypertension, not on medications at home Steroid inducted hyperglycemia Elevated random blood glucose on admission prior to patient being started on IV steroids Cognitive impairment/dementia Discharge Disposition Patient stable for discharge home today. Cleared by neurology and PT recom mending home with home care. Hospital Course This is a pleasant 66 year old female who presents to the hospital with history of falling at home, and dizziness, in addition to progressive right sided weakness onset 10/03/2021. Patient has a history of MS with right sided weakness. Patient denies loss of consciousness, denies hitting head at home. Does have bruising to bilateral knees, right thigh and right upper arm on admission. Last hospitalization for MS was in 2019. Patient has not followed with her neurologist for the last year as he had retired. Maintained on Kesimpta and dalfampridine for MS. Patient follows with Dr Hernandez in the primary care setting, other chronic conditions include hypertension, not currently on medications, memory impairment, hysterectomy, tonsillectomy. Imaging in the ED, CT brain and CTA head and neck no acute pathology . Blood work showed leukopenia , which the patient is not aware of. Patient admitted to hospital for MS exacerbation with consults placed to neurology and hematology. Treatment included IV steroids and PT/OT evaluation. Patient experienced hyperglycemia from the IV steroids and was treated with insulin. Blood sugar improved into the 100's day of discharge as steroids had not been given for 12 hours. Patient also had an MRI which showed 3 areas of demyelinating disease involvment in the cervical spinal cord. No enhancing lesions identified. There is also subtle sponylolisthesis with multilevel degenerative changes as detailed above. There was concern for possible normal pressure hydocephalus, patient underwent lumbar puncture on October 07, 2021, with 21 ml of cerebrospinal fluid collected. Hematology attributed the Neutropenia as possible side effect of pts kesimpta and inflammation and was recommended to stop on discharge and to follow up in the office as needed. 10/09/2021 Patient evaluated today sitting up in the chair, she would like to go home today. Neurology cleared patient for discharge and was recommended to follow up with Dr. Marroquin in the office for her MS. Labs today show WBC 10.18. Electrolytes show sodium 143, potassium 3.6, blood glucose 94. A1C was checked which is 5.7. Vital signs, patient is afebrile 97.5, heart rate 76, blood pressure 159/85. Patient was started on lisinopril for blood pressure. CSF culture pending which can be followed outpatient. PT/OT evaluation recommends patient may be discharged home with home care. Today she is alert and oriented x4, no complaints of chest pain, chest pressure, cough or shortness of breath. No dysuria, burning, frequency, or urgency. No nausea, vomiting, or diarrhea. No dizziness or lightheadedness. Patients lungs are clear, S1 S2 auscultated, right sided weakness has improved some. Tolerating diet. Cleared by neurology today. No back pain, headache, lumbar puncture site in tact. Patient give scripts for outpatient follow up labs. Please see medication reconciliation for a list of current medications. Thank you for allowing us to participate in the care of this patient. The impression and plan of care has been dictated by Kelsey Roa, Nurse Practitioner as directed. Dr. Skyla MD I have performed a history and physical examination and medical decision making of this patient, discussed the same with the dictator, and agree with the dictators assessment and plan as written, documented as a scribe. Based on total visit time, I have performed more than 50% of this visit. Patient Condition at Discharge: Stable Plan - Discharge Summary New Discharge Prescriptions: New Famotidine [Pepcid] 20 mg PO DAILY #30 tablet Acetaminophen Tab [Tylenol] 650 mg PO Q6HR PRN tab PRN Reason: Mild Pain Or Fever > 100.5 lisinopriL [Zestril] 10 mg PO DAILY #30 tab Continue Dalfampridine [Dalfampridine ER] 10 mg PO Q12H Discontinued Ofatumumab [Kesimpta Pen] 20 mg SQ Q30D Discharge Medication List Dalfampridine [Dalfampridine ER] 10 mg PO Q12H 07/28/19 [History] Acetaminophen Tab [Tylenol] 650 mg PO Q6HR PRN tab 10/09/21 [Rx] Famotidine [Pepcid] 20 mg PO DAILY #30 tablet 10/09/21 [Rx] lisinopriL [Zestril] 10 mg PO DAILY #30 tab 10/09/21 [Rx] Follow up Appointment(s)/Referral(s): Sarbjit Agustin MD [STAFF PHYSICIAN] - As Needed [facility], [NON-STAFF] - 1-2 Days Nery Marroquin MD [Medical Doctor] - 1 Week (New patient, history of MS Office needs referral for new patient ) Georgi Hernandez DO [Primary Care Provider] - 1-2 days Ambulatory/Diagnostic Orders: Basic Metabolic Panel [LAB.AMB] Time Frame: 2 Days, Location: None Selected Complete Blood Count w/diff [LAB.AMB] Time Frame: 2 Days, Location: None Selected Patient Instructions/Handouts: *Surgery [facility] - Myelogram and Lumbar Puncture Discharge Instructions, Multiple Sclerosis (DC) Activity/Diet/Wound Care/Special Instructions: Monitor blood pressure daily and keep log for follow up with primary care provider Discharge Disposition: HOME WITH HOME HEALTH SERVICES
== END 2021-10-09 11:54 | disposition home health service (06) | DRG 59 ==
LOC: EC 17:08 → 6NMEDSUR 21:31 → OBSVTOIN 10-05 08:08 → 4SSUR 10-08 16:52 → 6NMEDSUR 10-08 17:01
PROVIDERS: ADMIT Internal Medicine; ATTEND Internal Medicine
PROC: 009U3ZX Drainage of Spinal Canal, Percutaneous Approach, Diagnostic (ICD-10-PCS; principal; 2021-10-07 14:45)
DX: G35 Multiple sclerosis (principal); G91.2 (Idiopathic) normal pressure hydrocephalus; R55 Syncope and collapse; D70.2 Other drug-induced agranulocytosis; F03.90 Unspecified dementia, unspecified severity, without behavioral disturbance, psychotic disturbance, mood disturbance, and anxiety; I10 Essential (primary) hypertension; M43.10 Spondylolisthesis, site unspecified; R29.6 Repeated falls; R73.9 Hyperglycemia, unspecified; T38.0X5A Adverse effect of glucocorticoids and synthetic analogues, initial encounter; S80.01XA Contusion of right knee, initial encounter; S80.02XA Contusion of left knee, initial encounter; W07.XXXA Fall from chair, initial encounter; Y92.009 Unspecified place in unspecified non-institutional (private) residence as the place of occurrence of the external cause; Z80.7 Family history of other malignant neoplasms of lymphoid, hematopoietic and related tissues; Z82.49 Family history of ischemic heart disease and other diseases of the circulatory system; Z90.710 Acquired absence of both cervix and uterus; Z91.81 History of falling
CPT/HCPCS: 36415; 70450; 70496; 70553; 71046; 72156; 80048; 80053; 80074; 81001; 82040; 82042; 82607; 82652; 82728; 82746; 82784; 82945; 83036; 83540; 83550; 83605; 83615; 83735; 83873; 83883; 83916; 84157; 84165; 84443; 84484; 85025; 85610; 85652; 85730; 86038; 86140; 86334; 86431; 87070; 87205; 89050; 93005; 96361; 96365; 96366; 99285

== ENCOUNTER 2021-10-23 12:19 | Inpatient (IN) | payer MEDICARE ==
[2021-10-23 12:40] LABS: Glucose,Whole Blood 150 mg/dL (75-99)
[2021-10-23 12:49] LABS: Basophils # (A) 0.1 k/uL (0-0.2); Basophils % (A) 1 %; Eosinophils # (A) 0.1 k/uL (0-0.7); Eosinophils % (A) 2 %; HCT 41.3 % (34.0-46.0); HGB 13.2 gm/dL (11.4-16.0); Lymphocytes % (A) 18 %; MCH 31.2 pg (25.0-35.0); MCV 97.4 fL (80.0-100.0); Mean Platelet Volume 8.1; Monocytes # (A) 0.5 k/uL (0-1.0); Monocytes % (A) 8 %; Neutrophils # (A) 3.7 k/uL (1.3-7.7); Neutrophils % (A) 67 %; Platelet Count 219 k/uL (150-450); RBC 4.23 m/uL (3.80-5.40); RDW 13.2 % (11.5-15.5); WBC 5.5 k/uL (3.8-10.6)
[2021-10-23 12:58] LABS: INR 0.9 (<1.2)
[2021-10-23 12:59] LABS: Prothrombin Time 9.6 sec (9.0-12.0)
[2021-10-23 13:01] LABS: Albumin 3.9 g/dL (3.5-5.0); Calcium 8.8 mg/dL (8.4-10.2); Total Bilirubin 0.5 mg/dL (0.2-1.3); Total Protein 6.4 g/dL (6.3-8.2)
--- NOTE | 2021-10-23 13:17 | CT ---
EXAMINATION TYPE: CT brain wo con for TPA DATE OF EXAM: 10/23/2021 COMPARISON: 10/04/2021 HISTORY: 66-year-old female neurologic deficit, acute, stroke suspected, weakness. TECHNIQUE: Examination was done in axial plane without intravenous contrast. Coronal and sagittal r econstructions performed. CT DLP: Not provided at this time Automated exposure control for dose reduction was used. FINDINGS: There is no evidence of acute intracranial hemorrhage, acute ischemic changes, mass, mass-effect, or extra-axial fluid collection. There is no effacement of cerebral sulci or basal subarachnoid cister ns. There is moderate hydrocephalus, Norman ratio calculated at 0.4. Moderate to severe patchy white matte r hypodensities in both cerebral hemispheres. Small amount of intracranial fat noted along the falx, developmental variation. Mild atherosclerotic calcifications carotid siphons. There is no midline shift. Blanco-white matter di stinction is preserved. Paranasal sinuses and mastoid air cells well pneumatized. IMPRESSION: 1. Ongoing moderate hydrocephalus, Norman ratio 0.4. Correlate for potential NPH. 2. Similar severe patchy burden of chronic small vessel ischemic disease versus MS versus sequela of NPH. Clinically correlate. 3. No acute intracranial abnormality seen.
--- NOTE | 2021-10-23 13:25 | CT ---
EXAMINATION TYPE: CT orbits w con DATE OF EXAM: 10/23/2021 COMPARISON: None HISTORY: 66-year-old female Swelling to Lt orbit TECHNIQUE: Contiguous axial scanning of the orbits performed with IV Contrast, patient injected with 65 mL of Isovue 370. Coronal reconstructions performed. CT DLP: 518.9 mGycm Automated exposure control for dose reduction was used. FINDINGS: Leftward nasal septal deviation. Paranasal sinuses well pneumatized. Globes appear intact. No intraorbital retrobulbar abnormalities identified. There is asymmetric soft tissue swelling overlying the left infraorbital region, axial image 81. No a bnormal fluid collection. The superior ophthalmic veins are normal caliber. Intraocular muscles appear normal. IMPRESSION: LEFT INFRAORBITAL SOFT TISSUE SWELLING, POSSIBLE CELLULITIS OR CONTUSION. GLOBES APPEAR SYMMETRIC. NO POST SEPTAL ABNORMALITY SEEN. NO SIGNIFICANT PARANASAL SINUS DISEASE.
--- NOTE | 2021-10-23 13:29 | CT ---
EXAMINATION TYPE: CT angio head neck DATE OF EXAM: 10/23/2021 COMPARISON: CT head same day and prior angiography 01/03/2019 HISTORY: 66-year-old female Lt facial droop TECHNIQUE: Contiguous axial scanning of the head and neck performed with IV Contrast, patient injecte d with 65 mL of Isovue 370. Coronal/sagittal MIP reconstructions performed. 3-D reconstructions gener ated on a dedicated independent workstation. CT DLP: 518.9 mGycm Automated exposure control for dose reduction was used. FINDINGS: NECK: Conventional arch vessel branching anatomy. The left vertebral artery is dominant. Both vertebral arteries are patent throughout their course. The right common and right internal carotid arteries are patent by NASCET criteria. The left common and left internal carotid arteries are patent by NASCET criteria. Mild degenerative disc disease mid cervical spine. HEAD: Again, dominant left vertebral artery. Both vertebral and basilar arteries as well as the posterior c irculation are patent. Mild prostatic calcifications throughout the carotid siphons without any hemodynamically significant narrowing seen Anterior circulation patent. No aneurysmal change is seen. Dural venous sinuses are patent. IMPRESSION: 1. NECK: WIDELY PATENT CAROTID AND VERTEBRAL ARTERIES OF THE NECK. LEFT VERTEBRAL ARTERY IS DOMINANT. 2. HEAD: NO LARGE VESSEL INTRACRANIAL ARTERIAL OCCLUSION, SIGNIFICANT STENOSIS, OR ANEURYSMAL CHANGE IS SEEN.
[2021-10-23] MEDS ORDERED: VANCOMYCIN IV PER PHARMACY 1 EACH MISC MISCELLANE PRN (14:02)
[2021-10-23] MEDS ORDERED: SODIUM CHLORIDE 0.9% 500 ML 500 ML IV STA (14:04)
[2021-10-23] MEDS ORDERED: ASPIRIN 325 MG TAB PO STA (14:05)
--- NOTE | 2021-10-23 14:08 | ED ---
General Adult HPI - General Chief complaint: Neuro Symptoms/Deficit Stated complaint: Face swelling/droop Time Seen by Provider: 10/23/21 12:29 Source: patient, family, RN notes reviewed, old records reviewed Mode of arrival: wheelchair Limitations: no limitations - History of Present Illness Initial comments: Patient is a 66-year-old female with past medical history remarkable for MS who presents to make Department complaining of neurological symptoms since 8 PM last night. Patient has been having left-sided facial droop with mild dysarthria since last night. Presents today for further evaluation. Patient states this isn't typical for her MS flare, however 1 time previously did have facial droop on the left. Does endorse chronic right lower extremity weakness from prior MS. She also endorses puffiness and swelling over the left cheek inferior to her eye. No pain with movement of her eye. No change in vision. His no other acute complaints at this time. Denies any upper respiratory symptoms. Presents for neurological changes. Last known well yesterday at 8 PM which is within 24 hours but outside the TPA window. Denies chest pain, shortness breath, abdominal pain, nausea, vomiting. - Related Data Home Medications Medication Instructions Recorded Confirmed Dalfampridine [Dalfampridine ER] 10 mg PO Q12H 07/28/19 10/04/21 Aspirin EC [Ecotrin Low Dose] 81 mg PO DAILY 10/23/21 10/23/21 Ofatumumab [Kesimpta Pen] 0 mg SQ Q30D 10/23/21 10/23/21 Previous Rx's Medication Instructions Recorded Acetaminophen Tab [Tylenol] 650 mg PO Q6HR PRN tab 10/09/21 Allergies Allergy/AdvReac Type Severity Reaction Status Date / Time No Known Allergies Allergy Verified 10/23/21 13:33 Review of Systems ROS Statement: Those systems with pertinent positive or pertinent negative responses have been documented in the HPI. Review of Systems: CONST: Denies fever EYES: Denies blurry vision ENT: Endorses left cheek swelling, lower facial droop C/V: Denies Chest pain RESP: Denies shortness of breath GI: Denies abdominal pain : Denies dysuria SKIN: Denies rash. MSK: Denies joint pain. NEURO: Denies headache ROS Other: All systems not noted in ROS Statement are negative. Past Medical History Past Medical History: Memory Impairment Additional Past Medical History / Comment(s): MULTIPLE SCLEROSIS History of Any Multi-Drug Resistant Organisms: None Reported Past Surgical History: Hysterectomy, Tonsillectomy Past Anesthesia/Blood Transfusion Reactions: No Reported Reaction Past Psychological History: No Psychological Hx Reported Smoking Status: Never smoker Past Alcohol Use History: None Reported Past Drug Use History: None Reported - Past Family History Mother Family Medical History: Cancer Additional Family Medical History / Comment(s): HODGKINS LYMPHOMA Father Family Medical History: Myocardial Infarction ([place]) General Exam - General Exam Comments Initial Comments: General: Appears in no acute distress. HEAD: Normal with no signs of head trauma. EYES: PERRLA, EOMI, conjunctiva normal, no discharge. Pupils are 3 mm and equal bilaterally. Normal range of motion of the eye. ENT: Hearing grossly intact, normal oropharynx. Swelling over the left cheek, prominent beneath the left eye. No obvious fluctuance appreciated. Mild erythema. No induration. RESPIRATORY: Clear breath sounds bilaterally. No wheezes, rales, or rhonchi. C/V: Regular rate and rhythm. S1 and S2 auscultated, no edema, peripheral pulses 2+ and intact throughout ABD: Abd is soft, nontender, nondistended EXT: Normal range of motion, no obvious deformity SKIN: No rashes or lesions observed on exposed skin. NEURO: Alert and oriented 4. NIH is approximately 3, 1 for mild speech slurring as well as 2 for left lower facial paralysis. His chronic right lower extremity weakness from prior MS exacerbation. No other acute findings at this time. GCS is 15. Last known well was 8 PM last night. Limitations: no limitations Course Vital Signs 10/23/21 10/23/21 12:20 12:38 Temperature 98.1 F Pulse Rate 89 87 Respiratory 18 18 Rate Blood Pressure 147/60 O2 Sat by Pulse 98 98 Oximetry Medical Decision Making - Medical Decision Making Based on the patient's presentation and physical exam, differential is broad including MS flare versus acute CVA versus preseptal cellulitis. Stroke. He will be activated his symptoms started within the last 24 hours the patient is not a TPA candidate as symptoms started greater than 4.5 hours ago. Risks of administering TPA at this point would far outweigh the benefits. Stroke page was therefore activated. I spoke with Dr. Metzger of neuro intervention who was in agreement with this plan. We will also obtain in addition to CT imaging for stroke, CT imaging of the orbits with contrast to assess for preseptal cellulitis. Patient was in agreement this plan. EKG shows no signs of acute ischemia. Accu-Chek was within normal limits. CT brain revealed moderate hydrocephalus that has been seen on prior imaging. There is patchy areas adjusted with MS based on her history. CT angiogram revealed no significant stenosis. CT orbits with contrast revealed left infraorbital soft tissue swelling concerning for suspected cellulitis. This is especially in the context of no obvious injury to the site per patient. Laboratory studies were remarkable for a negative troponin. The remainder the labs are within normal limits. I spoke to patient regarding her findings. I did recommend we admit her for neurology evaluation. She was in agreement this plan. She'll be started on IV antibiotics, Unasyn as well as vancomycin for her preseptal cellulitis. I spoke with the admitting team under Dr. humphries who accepted the patient. He requested I consult both infectious disease and ophthalmology for the preseptal cellulitis. This was done. I also spoke with Dr. Kruger of neurology who agreed to do the consult. He was in agreement this plan. Patient was given an aspirin. - Lab Data Result diagrams: 10/23/21 12:40 10/23/21 12:40 Lab Results 10/23/21 10/23/21 10/23/21 Range/Units 12:37 12:40 12:40 WBC 5.5 (3.8-10.6) k/uL RBC 4.23 (3.80-5.40) m/uL Hgb 13.2 (11.4-16.0) gm/dL Hct 41.3 (34.0-46.0) % MCV 97.4 (80.0-100.0) fL MCH 31.2 (25.0-35.0) pg MCHC 32.0 (31.0-37.0) g/dL RDW 13.2 (11.5-15.5) % Plt Count 219 (150-450) k/uL MPV 8.1 Neutrophils % 67 % Lymphocytes % 18 % Monocytes % 8 % Eosinophils % 2 % Basophils % 1 % Neutrophils # 3.7 (1.3-7.7) k/uL Lymphocytes # 1.0 (1.0-4.8) k/uL Monocytes # 0.5 (0-1.0) k/uL Eosinophils # 0.1 (0-0.7) k/uL Basophils # 0.1 (0-0.2) k/uL PT 9.6 (9.0-12.0) sec INR 0.9 (<1.2) APTT 22.0 (22.0-30.0) sec Sodium (137-145) mmol/L Potassium (3.5-5.1) mmol/L Chloride (98-107) mmol/L Carbon Dioxide (22-30) mmol/L Anion Gap mmol/L BUN (7-17) mg/dL Creatinine (0.52-1.04) mg/dL Est GFR (CKD-EPI)AfAm (>60 ml/min/1.73 sqM) Est GFR (CKD-EPI)NonAf (>60 ml/min/1.73 sqM) Glucose (74-99) mg/dL POC Glucose (mg/dL) 150 H (75-99) mg/dL POC Glu Mri Special Procedures Technologist ID Didi Santana Calcium (8.4-10.2) mg/dL Total Bilirubin (0.2-1.3) mg/dL AST (14-36) U/L ALT (4-34) U/L Alkaline Phosphatase (38-126) U/L Troponin I (0.000-0.034) ng/mL Total Protein (6.3-8.2) g/dL Albumin (3.5-5.0) g/dL 10/23/21 10/23/21 Range/Units 12:40 12:40 WBC (3.8-10.6) k/uL RBC (3.80-5.40) m/uL Hgb (11.4-16.0) gm/dL Hct (34.0-46.0) % MCV (80.0-100.0) fL MCH (25.0-35.0) pg MCHC (31.0-37.0) g/dL RDW (11.5-15.5) % Plt Count (150-450) k/uL MPV Neutrophils % % Lymphocytes % % Monocytes % % Eosinophils % % Basophils % % Neutrophils # (1.3-7.7) k/uL Lymphocytes # (1.0-4.8) k/uL Monocytes # (0-1.0) k/uL Eosinophils # (0-0.7) k/uL Basophils # (0-0.2) k/uL PT (9.0-12.0) sec INR (<1.2) APTT (22.0-30.0) sec Sodium 139 (137-145) mmol/L Potassium 4.0 (3.5-5.1) mmol/L Chloride 106 (98-107) mmol/L Carbon Dioxide 29 (22-30) mmol/L Anion Gap 4 mmol/L BUN 22 H (7-17) mg/dL Creatinine 0.87 (0.52-1.04) mg/dL Est GFR (CKD-EPI)AfAm 81 (>60 ml/min/1.73 sqM) Est GFR (CKD-EPI)NonAf 70 (>60 ml/min/1.73 sqM) Glucose 148 H (74-99) mg/dL POC Glucose (mg/dL) (75-99) mg/dL POC Glu Mri Special Procedures Technologist ID Calcium 8.8 (8.4-10.2) mg/dL Total Bilirubin 0.5 (0.2-1.3) mg/dL AST 20 (14-36) U/L ALT 19 (4-34) U/L Alkaline Phosphatase 108 (38-126) U/L Troponin I <0.012 (0.000-0.034) ng/mL Total Protein 6.4 (6.3-8.2) g/dL Albumin 3.9 (3.5-5.0) g/dL - EKG Data -: EKG Interpreted by Me EKG Comments: 12-lead Electrocardiogram Interpretation Note EKG was reviewed and interpreted by myself. 12-lead ECG performed at [facility] is interpreted by me as revealing normal sinus rhythm at a rate of 93 beats per minute. Amalia is normal. KS interval is 216 ms, QRS ration is 77 ms, QTc is 339 ms.. There were no ST or T wave abnormalities to suggest myocardial ischemia or injury. R wave progression across the precordium was satisfactory. By my interpretation this EKG is non-diagnostic for acute ischemia. Critical Care Time Critical Care Time: Yes Total Critical Care Time: 35 Critical Care Time: Upon my evaluation, this patient had a high probability of imminent or life- threatening deterioration due to facial droop caused by CVA versus MS preseptal cellulitis, which required my direct attention, intervention, and personal management. I have personally provided 35 minutes of critical care time exclusive of time spent on separately billable procedures. Time includes review of laboratory data, radiology results, discussion with consultants, and monitoring for potential decompensation. Interventions were performed as documented in my note. Disposition Clinical Impression: Facial droop, History of multiple sclerosis, Preseptal cellulitis of left eye Disposition: ADMITTED IP TO THIS HOSP Condition: Stable Referrals: Georgi Hernandez DO [Primary Care Provider] - 1-2 days Time of Disposition: 02:05
[2021-10-23 14:12] LABS: Appearance,Urine Clear (Clear); Bilirubin,Urine Negative (Negative); Blood,Urine Negative (Negative); Color,Urine Light Yellow; Glucose,Urine (UA) Negative (Negative); Ketones,Urine Negative (Negative); Leukocyte Esterase,Urine Negative (Negative); Nitrite,Urine Negative (Negative); PH, Urine 6.5 (5.0-8.0); Protein,Urine Negative (Negative); Urobilinogen,Urine <2.0 mg/dL (<2.0)
[2021-10-23] MEDS ORDERED: VANCOMYCIN 1,250 MG in SODIUM CHLORIDE 0.9% 250 ML IVPB ONE (14:30)
[2021-10-23] MEDS ORDERED: AMPICILLIN-SULBACTAM 3 GM in SODIUM CHLORIDE 0.9% 100 ML IVPB ONE (14:30)
[2021-10-23] MEDS ORDERED: ACETAMINOPHEN TAB 325 MG TAB PO PRN (14:37)
--- NOTE | 2021-10-23 14:38 | P.HPIM ---
History of Present Illness This is a pleasant 66 years old female with past medical history of multiple sclerosis on treatment, also history of Memory Impairment. Her PCP is Dr. Ruben kelley and she sees a neurologist Dr. Tovar at [facility] Patient presents with left sided facial droop and left eye which started last night. Information were obtained with the help of the at bedside. She developed left facial swelling and small area of redness below her left eye. No blurred vision or painful eye movement. No headache or fever. No numbness or weakness or dizziness. No chest pain or dyspnea or coughing. No change in urine or bowel habits. No fever. As per she is walking very little and she is restricted for many years. She has memory problem for 5 years and she started having urinary incontinence for the last 2 weeks she denies smoking, alcohol or illicit drugs Her vitals looks stable. Labs including CBC, INR, BMP are unremarkable. Glucose elevated 150 Liver enzymes not elevated, troponin is negative less than 0.012. CT of the orbit with contrast showing left infraorbital soft tissue swelling, possible cellulitis or confusion. Globes appear symmetric. No placental abnormality seen. No significant paranasal sinus disease. CT of the brain without contrast: Moderate hydrocephalus. Similar severe patchy burden of chronic small vessel ischemic disease versus MS CT angiography: Neck: Widely patent carotid and vertebral arteries Head: No large vessel and struck cranial arterial occlusion, significant stenosis or aneurysmal changes. Patient is a started on Unasyn and IV vancomycin, within urology, infectious disease and ophthalmology consulted Review of Systems CONSTITUTIONAL: No fever, no malaise, no fatigue. HEENT: No recent visual problems or hearing problems. Denied any sore throat. CARDIOVASCULAR: No orthopnea, PND, no palpitations, no syncope. PULMONARY: No shortness of breath, no cough, no hemoptysis. GASTROINTESTINAL: No diarrhea, no nausea, no vomiting, no abdominal pain. Normoactive bowel sounds. NEUROLOGICAL: No headaches, no weakness, no numbness. HEMATOLOGICAL: Denies any bleeding or petechiae. GENITOURINARY: Denies any burning micturition, frequency, or urgency. MUSCULOSKELETAL/RHEUMATOLOGICAL: Denies any joint pain, swelling, or any muscle pain. ENDOCRINE: Denies any polyuria or polydipsia. Past Medical History Past Medical History: Memory Impairment Additional Past Medical History / Comment(s): MULTIPLE SCLEROSIS History of Any Multi-Drug Resistant Organisms: None Reported Past Surgical History: Hysterectomy, Tonsillectomy Past Anesthesia/Blood Transfusion Reactions: No Reported Reaction Past Psychological History: No Psychological Hx Reported Smoking Status: Never smoker Past Alcohol Use History: None Reported Past Drug Use History: None Reported - Past Family History Mother Family Medical History: Cancer Additional Family Medical History / Comment(s): HODGKINS LYMPHOMA Father Family Medical History: Myocardial Infarction ([place]) Medications and Allergies Home Medications Medication Instructions Recorded Confirmed Type Dalfampridine [Dalfampridine ER] 10 mg PO Q12H 07/28/19 10/23/21 History Acetaminophen Tab [Tylenol] 650 mg PO Q6HR PRN tab 10/09/21 10/23/21 Rx Aspirin EC [Ecotrin Low Dose] 81 mg PO DAILY 10/23/21 10/23/21 History Ofatumumab [Kesimpta Pen] 0 mg SQ Q30D 10/23/21 10/23/21 History Allergies Allergy/AdvReac Type Severity Reaction Status Date / Time No Known Allergies Allergy Verified 10/23/21 13:33 Physical Exam Vitals: Vital Signs Temp Pulse Resp BP Pulse Ox 10/23/21 12:38 87 18 98 10/23/21 12:20 98.1 F 89 18 147/60 98 Intake and Output 10/22/21 10/23/21 10/23/21 22:59 06:59 14:59 Other: Weight 74.843 kg GENERAL: The patient is alert and oriented x3, not in any acute distress. Well developed, well nourished. HEENT: Pupils are round and equally reacting to light. EOMI. No scleral icterus. No conjunctival pallor. Normocephalic, atraumatic. No pharyngeal erythema. No thyromegaly. CARDIOVASCULAR: S1 and S2 present. No murmurs, rubs, or gallops. PULMONARY: Chest is clear to auscultation, no wheezing or crackles. ABDOMEN: Soft, nontender, nondistended, normoactive bowel sounds. No palpable organomegaly. MUSCULOSKELETAL: No joint swelling or deformity. EXTREMITIES: No cyanosis, clubbing, or pedal edema. -Neurological: Erythema below left eye, left facial swelling with decreased movement most likely secondary to cellulitis and swelling. No strabismus, no nystagmus, no blurred vision. Cranial nerves are grossly intact. Strength is 5/5 and sensation is intact. She has symmetrical bilateral leg weakness. Meni ngeal signs are absent SKIN: No rashes. No petechiae Results CBC & Chem 7: 10/23/21 12:40 10/23/21 12:40 Labs: Abnormal Lab Results - Last 24 Hours (Table) 10/23/21 10/23/21 Range/Units 12:37 12:40 BUN 22 H (7-17) mg/dL Glucose 148 H (74-99) mg/dL POC Glucose (mg/dL) 150 H (75-99) mg/dL Assessment and Plan Assessment: left preseptal cellulitis Left facial swelling and decrease movement in droop, most likely secondary to cellulitis. Multiple sclerosis on treatment Moderate hydrocephalus Plan: Pleasant 66 years old female who presents with possible preseptal cellulitis and MS exacerbation Continue with Unasyn, infectious disease consult, ophthalmology consult Continue with the neuro check and neurology consult Labs and medication were reviewed.. Continue same treatment. Continue with symptomatic treatment. Resume home medication. Monitor lytes and vitals. DVT and GI prophylaxis. Further recommendations depends on the clinical course of the patient DVT prophylaxis: Subcutaneous heparin GI Prophylaxis: Pepcid Prognosis is guarded
--- NOTE | 2021-10-23 16:08 | XR ---
EXAMINATION TYPE: XR chest 2V DATE OF EXAM: 10/23/2021 COMPARISON: NONE TECHNIQUE: PA and lateral views submitted. HISTORY: Altered mental status FINDINGS: Limited inspiration with subsegmental changes at the left lung base. Heart size stable and mildly pro minent with calcified granuloma left upper lobe. No pneumothorax. Mild hypertrophic change of the spi ne. IMPRESSION: 1. Left basilar atelectasis versus early infiltrate. Favor atelectasis secondary to reduced inspirati on.
--- NOTE | 2021-10-23 17:20 | P.CNNES ---
History of Present Illness Consult date: 10/23/21 Requesting physician: Abraham Del Valle Reason for Consult: CVA versus MS History of Present Illness: Patient is a 66-year-old female with history of MS, recently discharged from the hospital on 10/09/2021 for MS exacerbation, not came to the hospital with left periorbital swelling and left facial droop. Patient's was also present, who provided excellent history. He states that patient last night at around 8 PM started rubbing her left eye, until it became irritated. It was slightly puffy involving the left eye. This morning she woke up at 7 AM and the puffiness got slightly worse. At 10 AM he noticed that left side of the face was droopy. There was no slurred speech, or any changes in her baseline neurological status. He brought her to the hospital to rule out CVA. Patient has history of multiple sclerosis, with baseline right leg weaker than the left. Patient's believes that the right leg weakness has not got any further worse. Patient's blood test shows normal CBC with WBC 5.5, neutrophils are 3.7 within the normal range. PT/PTT normal, chem 20 normal. Troponin negative. UA negative. Patient's last B12 was 500 on 10/06/2021. Folic acid 19.8. TSH is normal. Vitamin D was mildly decreased 25.5. Computed tomography scan of head showed ongoing moderate hydrocephalus. Norman ratio 0.4. Correlate for potential NPH. Similar severe patchy burden of chronic small vessel ischemic disease versus MS versus sequela of NPH. Clinically correlate. No acute process. I personally reviewed computed tomography scan of the head and agree with the findings. CTA of the neck showed widely patent carotid and vertebral arteries of the neck. Left vertebral artery is dominant. TA of the head showed no large vessel intracranial arterial occlusion, significant stenosis, or an eurysmal change. EKG shows sinus rhythm with first-degree AV block. Chest x- ray showed left basilar atelectasis versus early infiltrate. Favor atelectasis secondary to reduced inspiration. Apparently stroke code was activated in the ED. Patient's an eye stroke scale was 2. Patient was not a candidate for TPA, as her symptoms have been present for over 4.5 hours. Please refer to ED notes of Dr. Del Valle for detail. Patient has history of MS for over 20 years. Patient has previously failed Tysabri and Ocrevus in the past. She has been on Kesimpta for the last 8 months. Patient on last admission was noted to have severe leukopenia and neutropenia. Patient was recommended to stop this medication. Patient's white cells improved. However patient spoke to their neurologist after discharge, and they were recommended to resume Kesimpta. She received the last injection on 10/19/2021. At present patient complains of left eye hurting pointing to the suprazygomatic region. Patient's states that her gait and right leg weakness is at his baseline. No new worsening. Patient does take aspirin every morning. She walks with Q cane. Review of Systems Denies any chest pain shortness of breath wheezing or cough. Denies double vision or loss of vision. Denies any hoarseness, sore throat, dysphagia. Patient has history of urinary incontinence for which she received Botox injection about a year ago. It helped her significantly, but the in continence has appeared slightly. They are planning to see the urologist for Botox injection shortly. Patient does have right leg weakness, gait issues. All other 14 point of review systems reviewed are unremarkable. Past Medical History Past Medical History: Memory Impairment Additional Past Medical History / Comment(s): MULTIPLE SCLEROSIS History of Any Multi-Drug Resistant Organisms: None Reported Past Surgical History: Hysterectomy, Tonsillectomy Past Anesthesia/Blood Transfusion Reactions: No Reported Reaction Past Psychological History: No Psychological Hx Reported Smoking Status: Never smoker Past Alcohol Use History: None Reported Past Drug Use History: None Reported - Past Family History Mother Family Medical History: Cancer Additional Family Medical History / Comment(s): HODGKINS LYMPHOMA Father Family Medical History: Myocardial Infarction ([place]) Medications and Allergies Home Medications Medication Instructions Recorded Confirmed Type Dalfampridine [Dalfampridine ER] 10 mg PO Q12H 07/28/19 10/23/21 History Acetaminophen Tab [Tylenol] 650 mg PO Q6HR PRN tab 10/09/21 10/23/21 Rx Aspirin EC [Ecotrin Low Dose] 81 mg PO DAILY 10/23/21 10/23/21 History Ofatumumab [Kesimpta Pen] 0 mg SQ Q30D 10/23/21 10/23/21 History Allergies Allergy/AdvReac Type Severity Reaction Status Date / Time No Known Allergies Allergy Verified 10/23/21 13:33 Physical Examination - Vital Signs Vital Signs: Vital Signs Temp Pulse Resp BP Pulse Ox 10/23/21 15:30 90 148/96 10/23/21 15:00 82 151/94 10/23/21 14:30 81 151/94 10/23/21 14:00 82 137/79 10/23/21 12:38 87 18 98 10/23/21 12:20 98.1 F 89 18 147/60 98 Intake and Output 10/23/21 10/23/21 10/23/21 06:59 14:59 22:59 Other: Weight 74.843 kg Patient is an elderly female, very pleasant, in no acute distress. Patient is alert awake. Patient knows it is [facility]. He knows it is October. Speech and language functions are normal. Attention, concentration intact, and fund of knowledge is slightly limited. On cranial examination, pupils are equal, round and reacting to light, visual moura are full on confrontation, with no neglect. Her extraocular muscles are intact with no nystagmus. Patient has left periorbital swelling, mainly involving below the left lower eyelid region. Patient has left facial weakness, central type, with sparing of the forehead region. Her left cheek is somewhat puffy as compared to the right with decreased amount of increased is because of the swelling. Her tongue protrudes to the midline. Palatal elevation and sensation normal, hearing and shoulder shrug normal, facial sensation normal. Shoulder shrug normal. On muscle strength testing, there is no pronator drift and the strength is normal in arms distally and proximally. In the lower limbs (right/left) her hip flexion is 3+/5-, plantar flexion trace/5, ankle dorsiflexion trace/5. Deep tendon reflexes are hypoactive, but the plantar is flat on the right, upgoing on the left. Sensory to touch is equal with no neglect. Cerebellar function showed no ataxia for [id number] testing. Tone and bulk of muscles normal. Gait deferred. On general examination, there is no carotid bruit or murmur, S1-S2 audible. Abdomen is soft nontender. No organomegaly, bowel sounds present. Chest is clear. Peripheral pulses are present. No edema. Results - Laboratory Findings CBC and BMP: 10/23/21 12:40 10/23/21 12:40 Abnormal Lab Findings: Abnormal Labs 10/23/21 10/23/21 10/23/21 12:37 12:40 13:51 BUN 22 H Glucose 148 H POC Glucose (mg/dL) 150 H Ur Specific [place] 1.050 H Assessment and Plan Assessment: * Left facial weakness probably due to orbital cellulitis. Her left facial region is somewhat puffy probably from cellulitis. Rest of the examination is completely unchanged, stable, at baseline. No evidence of CVA or MS exa cerbation. * Recent history of MS exacerbation on 10/05/2021, for which patient received course of Solu-Medrol. * Prominent ventricles, possible mild hydrocephalus. Patient underwent large volume spinal tap on the last admission, without any clinical improvement in her gait. Suspect prominent ventricles related to advanced MS. * History of multiple sclerosis for 20 years. Plan: * No clinical evidence of stroke or MS exacerbation. * Treatment of orbital cellulitis as per IM. Patient is currently on Unasyn and vancomycin. * Neurology will follow clinically. * No other workup indicated. Patient is otherwise clear. * Discussed with patient's in detail. Thank you for the consult.
--- NOTE | 2021-10-23 20:59 | P.CONS ---
History of Present Illness - Reason for Consult Consult date: 10/23/21 Left periorbital cellulitis Requesting physician: Abraham Del Valle - Chief Complaint Left periorbital swelling and redness x few days - History of Present Illness Patient is a 66-year-old female with past medical history difficult for MS, patient presenting to the ER for left facial area swelling and redness that apparently has been going on for a day or 2 before presentation to the hospital patient was complaining of pain to the left facial area just below the left eye describing it to sharp about 5-10 and no radiation, with associated swelling redness but no drainage, patient did have some chills denies high-grade fever though on presentation the hospital the patient was afebrile patient did have normal white count creatinine was normal urine was negative patient did have a head and orbit CT shows left intraorbital soft tissue swelling possible cellulitis or contusion no post septal abnormality seen patient was started on vancomycin and Unasyn has been admitted to hospital infectious disease was consulted for further management of antibiotic therapy Review of Systems Positive point has been mentioned in the HPI rest of the systems are negative Past Medical History Past Medical History: Memory Impairment Additional Past Medical History / Comment(s): MULTIPLE SCLEROSIS History of Any Multi-Drug Resistant Organisms: None Reported Past Surgical History: Hysterectomy, Tonsillectomy Past Anesthesia/Blood Transfusion Reactions: No Reported Reaction Past Psychological History: No Psychological Hx Reported Smoking Status: Never smoker Past Alcohol Use History: None Reported Past Drug Use History: None Reported - Past Family History Mother Family Medical History: Cancer Additional Family Medical History / Comment(s): HODGKINS LYMPHOMA Father Family Medical History: Myocardial Infarction (NM) Medications and Allergies Home Medications Medication Instructions Recorded Confirmed Type Dalfampridine [Dalfampridine ER] 10 mg PO Q12H 07/28/19 10/23/21 History Acetaminophen Tab [Tylenol] 650 mg PO Q6HR PRN tab 10/09/21 10/23/21 Rx Aspirin EC [Ecotrin Low Dose] 81 mg PO DAILY 10/23/21 10/23/21 History Ofatumumab [Kesimpta Pen] 0 mg SQ Q30D 10/23/21 10/23/21 History Allergies Allergy/AdvReac Type Severity Reaction Status Date / Time No Known Allergies Allergy Verified 10/23/21 13:33 Physical Exam Vitals: Vital Signs Temp Pulse Resp BP Pulse Ox 04/07/22 12:38 87 18 98 10/23/21 12:20 98.1 F 89 18 147/60 98 Intake and Output 10/22/21 10/23/21 10/23/21 22:59 06:59 14:59 Other: Weight 74.843 kg GENERAL DESCRIPTION: Elderly female lying in bed, no distress. No tachypnea or accessory muscle of respiration use. HEENT: Shows Pallor , left periorbital swelling and redness mostly below the lower eyelid. Oral mucous membrane is dry. NECK: Trachea central, no thyromegaly. LUNGS: Unlabored breathing. Clear to auscultation anteriorly. No wheeze or crackle. HEART: S1, S2, regular rate and rhythm. No loud murmur ABDOMEN: Soft, no tenderness , guarding or rigidity, no organomegaly EXTREMITIES: No edema of feet. SKIN: No rash, no masses palpable. NEUROLOGICAL: The patient is awake, alert, oriented x3, mood and affect normal. Results CBC & Chem 7: 10/23/21 12:40 10/23/21 12:40 Labs: Abnormal Lab Results - Last 24 Hours (Table) 10/23/21 10/23/21 Range/Units 12:37 12:40 BUN 22 H (7-17) mg/dL Glucose 148 H (74-99) mg/dL POC Glucose (mg/dL) 150 H (75-99) mg/dL Assessment and Plan (1) Preseptal cellulitis of left eye Current Visit: Yes Status: Acute Code(s): L03.213 - PERIORBITAL CELLULITIS SNOMED Code(s): 020179525 Plan: 1patient presented to hospital with left facial cellulitis involving mostly the left facial swelling and redness likely patient cellulitis with no evidence of any post septal involvement on the CT and likely from gram-positive skin fredi less likely risk factor for MRSA 2-continue patient on Unasyn 3 g every 6 hours 3-discontinue vancomycin We will follow on clinical condition and cultures to further adjust medication if needed Thank you for this consultation will follow this patient along with you
[2021-10-23] MEDS: HEPARIN SODIUM,PORCINE/PF 5,000 UNIT/0.5 ML SYRINGE SQ SCH (21:50)
[2021-10-23] MEDS: FAMOTIDINE 20 MG/2 ML VIAL IV SCH (21:50)
[2021-10-24] MEDS: AMPICILLIN-SULBACTAM 3 GM in SODIUM CHLORIDE 0.9% 100 ML IVPB SCH ×5 (00:04→23:37)
[2021-10-24] MEDS ORDERED: VANCOMYCIN 1,250 MG in SODIUM CHLORIDE 0.9% 250 ML IVPB SCH (07:00)
[2021-10-24] MEDS: FAMOTIDINE 20 MG/2 ML VIAL IV SCH (08:47)
[2021-10-24] MEDS: ASPIRIN 81 MG PO SCH (08:47)
[2021-10-24] MEDS: HEPARIN SODIUM,PORCINE/PF 5,000 UNIT/0.5 ML SYRINGE SQ SCH ×2 (08:48→20:05)
[2021-10-24 09:38] LABS: African American GFR (CKD) 84 (>60 ml/min/1.73 sqM); Anion Gap 9 mmol/L; Blood Urea Nitrogen 13 mg/dL (7-17); Calcium 8.5 mg/dL (8.4-10.2); Carbon Dioxide 24 mmol/L (22-30); Chloride 109 mmol/L (98-107); Glucose 160 mg/dL (74-99); Non-African American GFR(CKD) 73 (>60 ml/min/1.73 sqM); Potassium 4.2 mmol/L (3.5-5.1); Sodium 142 mmol/L (137-145)
[2021-10-24 09:56] LABS: Basophils % (A) 1 %; Eosinophils # (A) 0.1 k/uL (0-0.7); Eosinophils % (A) 3 %; HCT 40.2 % (34.0-46.0); HGB 12.8 gm/dL (11.4-16.0); Lymphocytes % (A) 23 %; MCH 31.7 pg (25.0-35.0); MCHC 31.9 g/dL (31.0-37.0); MCV 99.7 fL (80.0-100.0); Mean Platelet Volume 8.5; Monocytes # (A) 0.4 k/uL (0-1.0); Monocytes % (A) 9 %; Neutrophils # (A) 2.5 k/uL (1.3-7.7); Neutrophils % (A) 61 %; Platelet Count 203 k/uL (150-450); RBC 4.03 m/uL (3.80-5.40); RDW 13.2 % (11.5-15.5); WBC 4.1 k/uL (3.8-10.6)
--- NOTE | 2021-10-24 16:19 | P.PN ---
Subjective Progress Note Date: 10/24/21 Principal diagnosis: Left facial cellulitis Patient is a 66-year-old female with a past medical history significant for MS presented to the hospital with left facial swelling and redness just below the left eye CT did shows some preoperative cellulitis but no exertion to the preseptal area. Ex and on today's evaluation that is 10/24/2021 the patient denies having any fever or any chills, the patient left facial swelling redness has improved overall. Discomfort has improved no chest pain shortness of breath or cough no nausea no vomiting no abdominal pain or diarrhea Objective - Vital Signs Vital signs: Vital Signs Temp 98.0 F 10/24/21 12:00 Pulse 81 10/24/21 12:00 Resp 18 10/24/21 12:00 BP 136/74 10/24/21 12:00 Pulse Ox 95 10/24/21 12:00 Intake & Output 10/23/21 10/24/21 10/24/21 18:59 06:59 18:59 Intake Total 618 298 Balance 618 298 Weight 74.843 kg Intake: Oral 618 298 Other: Voiding Method Toilet External Catheter # Voids 1 # Bowel Movements 1 - Exam GENERAL DESCRIPTION: An elderly female lying in bed in no distress HEENT left facial swelling redness has decreased RESPIRATORY SYSTEM: Unlabored breathing , decreased breath sounds at bases HEART: S1 S2 regular rate and rhythm , ABDOMEN: Soft , no tenderness EXTREMITIES: No edema feet - Labs CBC & Chem 7: 10/24/21 08:37 10/24/21 08:37 Labs: Abnormal Lab Results - Last 24 Hours (Table) 10/23/21 10/24/21 Range/Units 13:51 08:37 Chloride 109 H (98-107) mmol/L Glucose 160 H (74-99) mg/dL Ur Specific [place] 1.050 H (1.001-1.035) Assessment and Plan (1) Preseptal cellulitis of left eye Current Visit: Yes Status: Acute Code(s): L03.213 - PERIORBITAL CELLULITIS SNOMED Code(s): 242032568 Plan: 1patient presented to hospital with left facial cellulitis involving mostly the left facial swelling and redness likely patient cellulitis with no evidence of any post septal involvement on the CT and likely from gram-positive skin fredi less likely risk factor for MRSA 2- patient seemed to have clinical improvement with Unasyn 3 g every 6 hours and will be continued for another 24 hour before transitioning her to oral antibiotics Time with Patient: Less than 30
--- NOTE | 2021-10-24 18:08 | P.PN ---
Subjective This is a pleasant 66 years old female with past medical history of multiple sclerosis on treatment, also history of Memory Impairment. Her PCP is Dr. Ruben kelley and she sees a neurologist Dr. Tovar at [facility] Patient presents with left sided facial droop and left eye which started last night. Information were obtained with the help of the at bedside. She developed left facial swelling and small area of redness below her left eye. No blurred vision or painful eye movement. No headache or fever. No numbness or weakness or dizziness. No chest pain or dyspnea or coughing. No change in urine or bowel habits. No fever. As per she is walking very little and she is restricted for many years. She has memory problem for 5 years and she started having urinary incontinence for the last 2 weeks she denies smoking, alcohol or illicit drugs Her vitals looks stable. Labs including CBC, INR, BMP are unremarkable. Glucose elevated 150 Liver enzymes not elevated, troponin is negative less than 0.012. CT of the orbit with contrast showing left infraorbital soft tissue swelling, possible cellulitis or confusion. Globes appear symmetric. No placental abnormality seen. No significant paranasal sinus disease. CT of the brain without contrast: Moderate hydrocephalus. Similar severe patchy burden of chronic small vessel ischemic disease versus MS CT angiography: Neck: Widely patent carotid and vertebral arteries Head: No large vessel and struck cranial arterial occlusion, significant stenosis or aneurysmal changes. Patient is a started on Unasyn and IV vancomycin, within urology, infectious disease and ophthalmology consulted 10/24/2021 Patient clinically doing well, she is has no complaint other than some swelling in her left cheek and mild redness below her left eye and both are improving today. No blurred vision event prevocational/rehabilitation counselor did not feel he needs to see her and he counseled the consult. No other neurological deficit, patient was eager to go home today. However she will need at least extra 24 hours of IV antibiotics. Hemodynamically stable, CBC and BMP and normal. Patient kept on Unasyn. Possible discharge in 24-48 hours if she keeps improving and remains stable Objective - Vital Signs Vital signs: Vital Signs Temp 98.0 F 10/24/21 12:00 Pulse 81 10/24/21 12:00 Resp 18 10/24/21 12:00 BP 136/74 10/24/21 12:00 Pulse Ox 95 10/24/21 12:00 Intake & Output 10/23/21 10/24/21 10/24/21 18:59 06:59 18:59 Intake Total 618 118 Balance 618 118 Weight 74.843 kg Intake: Oral 618 118 Other: Voiding Method Toilet External Catheter # Voids 1 # Bowel Movements 1 - Exam GENERAL: The patient is alert and oriented x3, not in any acute distress. Well developed, well nourished. -HEENT: Pupils are round and equally reacting to light. EOMI. No scleral icterus. No conjunctival pallor. Normocephalic, atraumatic. No pharyngeal erythema. No thyromegaly. Mild swelling and erythema below left eye, both improving CARDIOVASCULAR: S1 and S2 present. No murmurs, rubs, or gallops. PULMONARY: Chest is clear to auscultation, no wheezing or crackles. ABDOMEN: Soft, nontender, nondistended, normoactive bowel sounds. No palpable organomegaly. MUSCULOSKELETAL: No joint swelling or deformity. EXTREMITIES: No cyanosis, clubbing, or pedal edema. NEUROLOGICAL: Gross neurological examination did not reveal any focal deficits. SKIN: No rashes. no petechiae. - Labs CBC & Chem 7: 10/24/21 08:37 10/24/21 08:37 Labs: Abnormal Lab Results - Last 24 Hours (Table) 10/23/21 10/23/21 10/24/21 Range/Units 12:40 13:51 08:37 Chloride 109 H (98-107) mmol/L BUN 22 H (7-17) mg/dL Glucose 148 H 160 H (74-99) mg/dL Ur Specific [place] 1.050 H (1.001-1.035) Assessment and Plan Assessment: left preseptal cellulitis Left facial swelling and decrease movement in droop, most likely secondary to cellulitis. Multiple sclerosis on treatment Moderate hydrocephalus Plan: Pleasant 66 years old female who presents with possible preseptal cellulitis and MS exacerbation Continue with Unasyn, infectious disease consult, Labs and medication were reviewed.. Continue same treatment. Continue with symptomatic treatment. Resume home medication. Monitor lytes and vitals. DVT and GI prophylaxis. Further recommendations depends on the clinical course of the patient DVT prophylaxis: Subcutaneous heparin GI Prophylaxis: Pepcid Clinically improving. Possible discharge in 24-48 hours
[2021-10-24 18:45] LABS: Chol/HDL Ratio 4.24 Ratio; LDL Cholesterol,Calculated 160.2 mg/dL (0.0-131.0)
[2021-10-24] MEDS: FAMOTIDINE 20 MG TAB PO SCH (20:05)
[2021-10-25] MEDS: AMPICILLIN-SULBACTAM 3 GM in SODIUM CHLORIDE 0.9% 100 ML IVPB SCH ×4 (04:57→22:57)
[2021-10-25] MEDS: ASPIRIN 81 MG PO SCH (07:59)
[2021-10-25] MEDS: HEPARIN SODIUM,PORCINE/PF 5,000 UNIT/0.5 ML SYRINGE SQ SCH ×3 (07:59→20:02)
[2021-10-25] MEDS: FAMOTIDINE 20 MG TAB PO SCH ×2 (07:59→20:02)
--- NOTE | 2021-10-25 08:48 | P.PN ---
Subjective Progress Note Date: 10/24/21 Patient was seen for a follow-up. Patient is laying comfortably in the bed. Patient wants to go home. No new focal symptoms. Patient's telemetry showing sinus rhythm with heart rate between 70-110. Objective - Vital Signs Vital signs: Vital Signs Temp 98.2 F 10/25/21 03:51 Pulse 83 10/25/21 03:51 Resp 18 10/25/21 03:51 BP 142/71 10/25/21 03:51 Pulse Ox 100 10/25/21 03:51 Intake & Output 10/24/21 10/25/21 10/25/21 18:59 06:59 18:59 Intake Total 538 Balance 538 Intake: Oral 538 Other: Voiding Method External Catheter External Catheter # Voids 3 # Bowel Movements 2 - Exam Patient's examination is significant for much improvement in the left facial swelling/cellulitis as well as a facial droopiness. Rest of the examination is unchanged. - Labs CBC & Chem 7: 10/24/21 08:37 10/24/21 08:37 Labs: Abnormal Lab Results - Last 24 Hours (Table) 10/24/21 Range/Units 08:37 Chloride 109 H (98-107) mmol/L Glucose 160 H (74-99) mg/dL Cholesterol 247.00 H (0.00-200.00) mg/dL LDL Cholesterol, Calc 160.2 H (0.0-131.0) mg/dL Microbiology - Last 24 Hours (Table) 10/23/21 15:00 Blood Culture - Final Blood 10/23/21 15:00 Blood Culture - Preliminary Blood No Growth after 24 hours Assessment and Plan Assessment: * Left facial weakness probably due to orbital/facial cellulitis. Her left facial region is somewhat puffy probably from cellulitis. Rest of the examination is completely unchanged, stable, at baseline. No evidence of CVA or MS exacerbation. * Recent history of MS exacerbation on 10/05/2021, for which patient received course of Solu-Medrol. * Prominent ventricles, possible mild hydrocephalus. Patient underwent large volume spinal tap on the last admission, without any clinical improvement in her gait. Suspect prominent ventricles related to advanced MS. * History of multiple sclerosis for 20 years. Plan: * No clinical evidence of stroke or MS exacerbation. * Treatment of orbital cellulitis as per infectious disease. Patient is currently on Unasyn. Patient's left facial weakness has improved since the swelling and cellulitis have improved. * No other workup indicated. Patient is otherwise clear. * Neurologically clear.
[2021-10-25] MEDS ORDERED: VANCOMYCIN IV PER PHARMACY 1 EACH MISC MISCELLANE PRN (11:26)
[2021-10-25] MEDS ORDERED: VANCOMYCIN 1,250 MG in SODIUM CHLORIDE 0.9% 250 ML IVPB SCH (12:00)
--- NOTE | 2021-10-25 15:57 | P.PN ---
Subjective Progress Note Date: 10/25/21 Principal diagnosis: Left facial cellulitis Patient is a 66-year-old female with a past medical history significant for MS presented to the hospital with left facial swelling and redness just below the left eye CT did shows some preoperative cellulitis but no exertion to the preseptal area. Patient clinical course complicated by development of a positive blood culture with gram-positive cocci on today's evaluation that is 10/25/2021 the patient remains to be afebrile, the patient left facial swelling redness has decreased in intensity, the patient discomfort to the left facial area has improved , no chest pain shortness of breath or cough no nausea no vomiting no abdominal pain or diarrhea Objective - Vital Signs Vital signs: Vital Signs Temp 98.3 F 10/25/21 12:00 Pulse 82 10/25/21 13:10 Resp 18 10/25/21 12:00 BP 129/62 10/25/21 12:00 Pulse Ox 96 10/25/21 12:00 Intake & Output 10/24/21 10/25/21 10/25/21 18:59 06:59 18:59 Intake Total 538 Balance 538 Intake: Oral 538 Other: Voiding Method External Catheter External Catheter External Catheter # Voids 3 # Bowel Movements 2 1 - Exam GENERAL DESCRIPTION: An elderly female lying in bed in no distress HEENT left facial swelling redness has decreased RESPIRATORY SYSTEM: Unlabored breathing , decreased breath sounds at bases HEART: S1 S2 regular rate and rhythm , ABDOMEN: Soft , no tenderness EXTREMITIES: No edema feet - Labs CBC & Chem 7: 10/24/21 08:37 10/24/21 08:37 Labs: Abnormal Lab Results - Last 24 Hours (Table) 10/24/21 Range/Units 08:37 Cholesterol 247.00 H (0.00-200.00) mg/dL LDL Cholesterol, Calc 160.2 H (0.0-131.0) mg/dL Microbiology - Last 24 Hours (Table) 10/23/21 15:00 Blood Culture Gram Stain - Preliminary Blood 10/23/21 15:00 Blood Culture - Final Blood 10/23/21 15:00 Blood Culture - Preliminary Blood No Growth after 24 hours Assessment and Plan (1) Preseptal cellulitis of left eye Current Visit: Yes Status: Acute Code(s): L03.213 - PERIORBITAL CELLULITIS SNOMED Code(s): 900178854 Plan: 1patient presented to hospital with left facial cellulitis involving mostly the left facial swelling and redness likely patient cellulitis with no evidence of any post septal involvement on the CT and likely from gram-positive skin fredi less likely risk factor for MRSA 2- patient seemed to have clinical improvement with Unasyn 3 g every 6 hours which will be continued 3- patient with a positive blood culture with gram-positive cocci ID sensitivities pending blood culture has been repeated vancomycin has been added
[2021-10-26] MEDS: AMPICILLIN-SULBACTAM 3 GM in SODIUM CHLORIDE 0.9% 100 ML IVPB SCH ×3 (05:34→17:50)
--- NOTE | 2021-10-26 07:21 | P.PN ---
Subjective This is a pleasant 66 years old female with past medical history of multiple sclerosis on treatment, also history of Memory Impairment. Her PCP is Dr. Ruben kelley and she sees a neurologist Dr. Tovar at [facility] Patient presents with left sided facial droop and left eye which started last night. Information were obtained with the help of the at bedside. She developed left facial swelling and small area of redness below her left eye. No blurred vision or painful eye movement. No headache or fever. No numbness or weakness or dizziness. No chest pain or dyspnea or coughing. No change in urine or bowel habits. No fever. As per she is walking very little and she is restricted for many years. She has memory problem for 5 years and she started having urinary incontinence for the last 2 weeks she denies smoking, alcohol or illicit drugs Her vitals looks stable. Labs including CBC, INR, BMP are unremarkable. Glucose elevated 150 Liver enzymes not elevated, troponin is negative less than 0.012. CT of the orbit with contrast showing left infraorbital soft tissue swelling, possible cellulitis or confusion. Globes appear symmetric. No placental abnormality seen. No significant paranasal sinus disease. CT of the brain without contrast: Moderate hydrocephalus. Similar severe patchy burden of chronic small vessel ischemic disease versus MS CT angiography: Neck: Widely patent carotid and vertebral arteries Head: No large vessel and struck cranial arterial occlusion, significant stenosis or aneurysmal changes. Patient is a started on Unasyn and IV vancomycin, within urology, infectious disease and ophthalmology consulted 10/24/2021 Patient clinically doing well, she is has no complaint other than some swelling in her left cheek and mild redness below her left eye and both are improving today. No blurred vision event turntable worker did not feel he needs to see her and he counseled the consult. No other neurological deficit, patient was eager to go home today. However she will need at least extra 24 hours of IV antibiotics. Hemodynamically stable, CBC and BMP and normal. Patient kept on Unasyn. Possible discharge in 24-48 hours if she keeps improving and remains stable 10/25/2021 Patient clinically gave improvement, she is asymptomatic today, no headache, no blurred vision, no new neurological deficit. No fever. No pain. And she is hemodynamically stable. Her erythema below her left eye and left cheek swelling almost resolved. Patient was looking for possible discharge today. However her blood culture came back positive for coagulase-negative staph. Final results still pending. Infectious disease team of the case and she is currently on Unasyn so she received 1 dose of IV vancomycin. We will keep monitoring for now Objective - Vital Signs Vital signs: Vital Signs Temp 97.8 F 10/25/21 07:57 Pulse 83 10/25/21 08:00 Resp 18 10/25/21 07:57 BP 127/63 10/25/21 07:57 Pulse Ox 93 L 10/25/21 07:57 Intake & Output 10/24/21 10/25/21 10/25/21 18:59 06:59 18:59 Intake Total 538 Balance 538 Intake: Oral 538 Other: Voiding Method External Catheter External Catheter External Catheter # Voids 3 # Bowel Movements 2 - Exam GENERAL: The patient is alert and oriented x3, not in any acute distress. Well developed, well nourished. -HEENT: Pupils are round and equally reacting to light. EOMI. No scleral icterus. No conjunctival pallor. Normocephalic, atraumatic. No pharyngeal erythema. No thyromegaly. Mild swelling and erythema below left eye, both improving, almost resolved CARDIOVASCULAR: S1 and S2 present. No murmurs, rubs, or gallops. PULMONARY: Chest is clear to auscultation, no wheezing or crackles. ABDOMEN: Soft, nontender, nondistended, normoactive bowel sounds. No palpable organomegaly. MUSCULOSKELETAL: No joint swelling or deformity. EXTREMITIES: No cyanosis, clubbing, or pedal edema. NEUROLOGICAL: Gross neurological examination did not reveal any focal deficits. SKIN: No rashes. no petechiae. - Labs CBC & Chem 7: 10/24/21 08:37 10/24/21 08:37 Labs: Abnormal Lab Results - Last 24 Hours (Table) 10/24/21 Range/Units 08:37 Cholesterol 247.00 H (0.00-200.00) mg/dL LDL Cholesterol, Calc 160.2 H (0.0-131.0) mg/dL Microbiology - Last 24 Hours (Table) 10/23/21 15:00 Blood Culture - Final Blood 10/23/21 15:00 Blood Culture - Preliminary Blood No Growth after 24 hours Assessment and Plan Assessment: left preseptal cellulitis Left facial swelling and decrease movement in droop, most likely secondary to cellulitis. Positive blood culture with coagulase negative staph Multiple sclerosis on treatment Moderate hydrocephalus Plan: Pleasant 66 years old female who presents with possible preseptal cellulitis, with past blood culture Continue with Unasyn, infectious disease consult Follow-up I the results of blood culture Labs and medication were reviewed.. Continue same treatment. Continue with symptomatic treatment. Resume home medication. Monitor lytes and vitals. DVT and GI prophylaxis. Further recommendations depends on the clinical course of the patient DVT prophylaxis: Subcutaneous heparin GI Prophylaxis: Pepcid Clinically improving. Possible discharge in 24-48 hours
[2021-10-26] MEDS: HEPARIN SODIUM,PORCINE/PF 5,000 UNIT/0.5 ML SYRINGE SQ SCH (07:50)
[2021-10-26] MEDS: FAMOTIDINE 20 MG TAB PO SCH (07:57)
[2021-10-26] MEDS: ASPIRIN 81 MG PO SCH (07:57)
--- NOTE | 2021-10-26 09:11 | P.PN ---
Subjective Progress Note Date: 10/25/21 Patient was seen for a follow-up. Patient's was present. Patient's facial asymmetry has almost resolved, probably back to baseline. The facial swelling has also improved. No new symptoms. Patient wants to go home. Objective - Vital Signs Vital signs: Vital Signs Temp 98.5 F 10/26/21 07:53 Pulse 84 10/26/21 07:53 Resp 18 10/26/21 07:53 BP 129/87 10/26/21 07:53 Pulse Ox 98 10/26/21 07:53 Intake & Output 10/25/21 10/26/21 10/26/21 18:59 06:59 18:59 Output Total 800 Balance -800 Output: Urine 800 Other: Voiding Method External Catheter Toilet # Voids 2 # Bowel Movements 1 - Exam Patient's examination is significant for much improvement in the left facial swelling/cellulitis as well as a facial droopiness. Face almost back to baseline. Patient was walking from bathroom with her walker and the IV pole and appears steady. Rest of the examination is unchanged. - Labs CBC & Chem 7: 10/24/21 08:37 10/24/21 08:37 Labs: Microbiology - Last 24 Hours (Table) 10/23/21 15:00 Blood Culture - Preliminary Blood No Growth after 48 hours 10/23/21 15:00 Blood Culture Gram Stain - Preliminary Blood Blood Culture - Preliminary Coagulase Negative Staph Assessment and Plan Assessment: * Left facial weakness probably due to orbital/facial cellulitis. Her left facial region is somewhat puffy probably from cellulitis. Rest of the examination is completely unchanged, stable, at baseline. No evidence of CVA or MS exacerbation. * Recent history of MS exacerbation on 10/05/2021, for which patient received course of Solu-Medrol. * Prominent ventricles, possible mild hydrocephalus. Patient underwent large volume spinal tap on the last admission, without any clinical improvement in her gait. Suspect prominent ventricles related to advanced MS. * History of multiple sclerosis for 20 years. Plan: * No clinical evidence of stroke or MS exacerbation. * Treatment of orbital cellulitis as per infectious disease. Patient is currently on Unasyn. Patient's left facial weakness has almost resolved, probably back to baseline. * Continue aspirin 81 mg daily. * No other workup indicated. * Neurologically clear. Neurology will sign off. Please reconsult if any other concerns.
[2021-10-26 11:43] LABS: Calcium 8.9 mg/dL (8.4-10.2); Potassium 4.4 mmol/L (3.5-5.1)
--- NOTE | 2021-10-26 13:08 | P.PN ---
Subjective This is a pleasant 66 years old female with past medical history of multiple sclerosis on treatment, also history of Memory Impairment. Her PCP is Dr. Ruben kelley and she sees a neurologist Dr. Tovar at [facility] Patient presents with left sided facial droop and left eye which started last night. Information were obtained with the help of the at bedside. She developed left facial swelling and small area of redness below her left eye. No blurred vision or painful eye movement. No headache or fever. No numbness or weakness or dizziness. No chest pain or dyspnea or coughing. No change in urine or bowel habits. No fever. As per she is walking very little and she is restricted for many years. She has memory problem for 5 years and she started having urinary incontinence for the last 2 weeks she denies smoking, alcohol or illicit drugs Her vitals looks stable. Labs including CBC, INR, BMP are unremarkable. Glucose elevated 150 Liver enzymes not elevated, troponin is negative less than 0.012. CT of the orbit with contrast showing left infraorbital soft tissue swelling, possible cellulitis or confusion. Globes appear symmetric. No placental abnormality seen. No significant paranasal sinus disease. CT of the brain without contrast: Moderate hydrocephalus. Similar severe patchy burden of chronic small vessel ischemic disease versus MS CT angiography: Neck: Widely patent carotid and vertebral arteries Head: No large vessel and struck cranial arterial occlusion, significant stenosis or aneurysmal changes. Patient is a started on Unasyn and IV vancomycin, within urology, infectious disease and ophthalmology consulted 10/24/2021 Patient clinically doing well, she is has no complaint other than some swelling in her left cheek and mild redness below her left eye and both are improving today. 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 No other neurological deficit, patient was eager to go home today. However she will need at least extra 24 hours of IV antibiotics. Hemodynamically stable, CBC and BMP and normal. Patient kept on Unasyn. Possible discharge in 24-48 hours if she keeps improving and remains stable 10/25/2021 Patient clinically gave improvement, she is asymptomatic today, no headache, no blurred vision, no new neurological deficit. No fever. No pain. And she is hemodynamically stable. Her erythema below her left eye and left cheek swelling almost resolved. Patient was looking for possible discharge today. However her blood culture came back positive for coagulase-negative staph. Final results still pending. Infectious disease team of the case and she is currently on Unasyn so she received 1 dose of IV vancomycin. We will keep monitoring for now 10/26/2021 Patient is clinically improving and left face swelling and erythema resolved. No other symptoms, no neurological deficits. No fever. Blood culture final results still pending. Currently showing coagulase-negative staph. ID team on the case, patient on Unasyn and received a one-time dose of vancomycin Objective - Vital Signs Vital signs: Vital Signs Temp 98.5 F 10/26/21 07:53 Pulse 84 10/26/21 08:00 Resp 18 10/26/21 07:53 BP 129/87 10/26/21 07:53 Pulse Ox 98 10/26/21 07:53 Intake & Output 10/25/21 10/26/21 10/26/21 18:59 06:59 18:59 Output Total 800 Balance -800 Output: Urine 800 Other: Voiding Method External Catheter Toilet Toilet # Voids 2 1 # Bowel Movements 1 - Exam GENERAL: The patient is alert and oriented x3, not in any acute distress. Well developed, well nourished. -HEENT: Pupils are round and equally reacting to light. EOMI. No scleral icterus. No conjunctival pallor. Normocephalic, atraumatic. No pharyngeal erythema. No thyromegaly. Mild swelling and erythema below left eye, both improving, almost resolved CARDIOVASCULAR: S1 and S2 present. No murmurs, rubs, or gallops. PULMONARY: Chest is clear to auscultation, no wheezing or crackles. ABDOMEN: Soft, nontender, nondistended, normoactive bowel sounds. No palpable organomegaly. MUSCULOSKELETAL: No joint swelling or deformity. EXTREMITIES: No cyanosis, clubbing, or pedal edema. NEUROLOGICAL: Gross neurological examination did not reveal any focal deficits. SKIN: No rashes. no petechiae. - Labs CBC & Chem 7: 10/24/21 08:37 10/26/21 10:34 Labs: Microbiology - Last 24 Hours (Table) 10/23/21 15:00 Blood Culture - Preliminary Blood No Growth after 48 hours 10/23/21 15:00 Blood Culture Gram Stain - Preliminary Blood Blood Culture - Preliminary Coagulase Negative Staph Assessment and Plan Assessment: left preseptal cellulitis Left facial swelling and decrease movement in droop, most likely secondary to cellulitis. Positive blood culture with coagulase negative staph Multiple sclerosis on treatment Moderate hydrocephalus Plan: Pleasant 66 years old female who presents with possible preseptal cellulitis, with past blood culture Continue with Unasyn, infectious disease consult Follow-up I the results of blood culture Labs and medication were reviewed.. Continue same treatment. Continue with s ymptomatic treatment. Resume home medication. Monitor lytes and vitals. DVT and GI prophylaxis. Further recommendations depends on the clinical course of the patient DVT prophylaxis: Subcutaneous heparin GI Prophylaxis: Pepcid Clinically improving. Possible discharge in 24-48 hours
[2021-10-26 15:21] VITALS: BP 132/75; PULSE 76; RESP 16; TEMP 98.1
== END 2021-10-26 18:55 | disposition home or self-care (01) | DRG 603 ==
LOC: EC 12:19 → 3SCARD 14:14
PROVIDERS: ADMIT Internal Medicine; ATTEND Internal Medicine
DX: L03.213 Periorbital cellulitis (principal); G91.9 Hydrocephalus, unspecified; J98.11 Atelectasis; I44.0 Atrioventricular block, first degree; G35 Multiple sclerosis; B96.89 Other specified bacterial agents as the cause of diseases classified elsewhere; G31.84 Mild cognitive impairment of uncertain or unknown etiology; R29.810 Facial weakness; D70.9 Neutropenia, unspecified; Z80.7 Family history of other malignant neoplasms of lymphoid, hematopoietic and related tissues; Z82.49 Family history of ischemic heart disease and other diseases of the circulatory system; L03.211 Cellulitis of face; Z79.82 Long term (current) use of aspirin; Z90.710 Acquired absence of both cervix and uterus
CPT/HCPCS: 36415; 70450; 70481; 70496; 70498; 71046; 80048; 80053; 80061; 81003; 84484; 85025; 85610; 85730; 87040; 93005; 96365; 96375; 99291

== ENCOUNTER 2022-07-15 13:56 | Inpatient (IN) | payer MEDICARE ==
[2022-07-15 14:49] LABS: Appearance,Urine Clear (Clear); Bilirubin,Urine Negative (Negative); Blood,Urine Negative (Negative); Color,Urine Yellow; Glucose,Urine (UA) Negative (Negative); Ketones,Urine 1+ (Negative); Leukocyte Esterase,Urine Negative (Negative); Nitrite,Urine Negative (Negative); PH, Urine 6.5 (5.0-8.0); Protein,Urine Trace (Negative); Specific Gravity,Urine 1.026 (1.001-1.035); Urobilinogen,Urine <2.0 mg/dL (<2.0)
--- NOTE | 2022-07-15 15:31 | XR ---
EXAMINATION TYPE: XR chest 2V DATE OF EXAM: 07/15/2022 COMPARISON: 10/23/2021, 10/04/2021 INDICATION: Difficulty breathing TECHNIQUE: Frontal and lateral views of the chest are obtained. FINDINGS: The heart size is normal. The pulmonary vasculature is normal. Couple of granuloma likely within the left lower lung field. Findings are stable.. IMPRESSION: 1. No acute pulmonary process.
[2022-07-15] MEDS ORDERED: methylPREDNISolone SOD SUCCI 125 MG/2 ML VIAL IV STA (16:00)
[2022-07-15 17:07] LABS: HCT 39.6 % (34.0-46.0); HGB 13.8 gm/dL (11.4-16.0); MCH 32.8 pg (25.0-35.0); MCHC 34.8 g/dL (31.0-37.0); MCV 94.2 fL (80.0-100.0); Mean Platelet Volume 8.6; Platelet Count 227 k/uL (150-450); RDW 13.2 % (11.5-15.5); WBC 11.3 k/uL (3.8-10.6)
[2022-07-15 17:21] LABS: ALT 23 U/L (4-34); AST 31 U/L (14-36); African American GFR (CKD) >90 (>60 ml/min/1.73 sqM); Albumin 4.1 g/dL (3.5-5.0); Alkaline Phosphatase 110 U/L (38-126); Anion Gap 8 mmol/L; Blood Urea Nitrogen 22 mg/dL (7-17); Calcium 8.7 mg/dL (8.4-10.2); Carbon Dioxide 25 mmol/L (22-30); Chloride 109 mmol/L (98-107); Glucose 104 mg/dL (74-99); Magnesium 2.1 mg/dL (1.6-2.3); Non-African American GFR(CKD) 85 (>60 ml/min/1.73 sqM); Potassium 4.3 mmol/L (3.5-5.1); Sodium 142 mmol/L (137-145); Total Bilirubin 0.6 mg/dL (0.2-1.3); Total Protein 6.5 g/dL (6.3-8.2)
--- NOTE | 2022-07-15 18:53 | ED ---
General Adult HPI - General Chief complaint: Weakness Stated complaint: weakness Time Seen by Provider: 07/15/22 14:00 Source: patient, family, EMS, RN notes reviewed, old records reviewed Mode of arrival: EMS Limitations: no limitations - History of Present Illness Initial comments: This is 66-year-old female who presents emergency Department having a three-day history of dizziness and falling down. Patient states she has no significant injuries from any of the falls. Patient states over the last 20 years this is occurred multiple times and this is an exacerbation of her multiple sclerosis. Patient states she normally gets steroids for a few days and she feels considerably better with all symptoms resolved. Patient denies any headache patient denies any focal numbness or weakness. Patient states she was has a little bit more weakness on the right than the left but that is unchanged. Patient denies any recent fever chills or cough. Patient denies any chest pain or difficulty breathing. Patient has abdominal pain patient denies nausea vomiting diarrhea. - Related Data Home Medications Medication Instructions Recorded Confirmed Dalfampridine [Dalfampridine ER] 10 mg PO Q12H 07/28/19 07/15/22 Aspirin EC [Ecotrin Low Dose] 81 mg PO DAILY 10/23/21 07/15/22 Ofatumumab [Kesimpta Pen] 20 mg SQ QMONTHLY 10/23/21 07/15/22 Mirabegron [Myrbetriq] 50 mg PO DAILY 07/15/22 07/15/22 Allergies Allergy/AdvReac Type Severity Reaction Status Date / Time No Known Allergies Allergy Verified 07/15/22 15:18 Review of Systems ROS Statement: Those systems with pertinent positive or pertinent negative responses have been documented in the HPI. ROS Other: All systems not noted in ROS Statement are negative. Past Medical History Past Medical History: Memory Impairment Additional Past Medical History / Comment(s): MULTIPLE SCLEROSIS History of Any Multi-Drug Resistant Organisms: None Reported Past Surgical History: Hysterectomy, Tonsillectomy Past Anesthesia/Blood Transfusion Reactions: No Reported Reaction Past Psychological History: No Psychological Hx Reported Smoking Status: Never smoker Past Alcohol Use History: None Reported Past Drug Use History: None Reported - Past Family History Mother Family Medical History: Cancer Additional Family Medical History / Comment(s): HODGKINS LYMPHOMA Father Family Medical History: Myocardial Infarction ([place]) General Exam - General Exam Comments Initial Comments: GENERAL: Patient is well-developed and well-nourished. Patient is nontoxic and well- hydrated and is in no acute distress. ENT: Neck is soft and supple. No significant lymphadenopathy is noted. Oropharynx is clear. Moist mucous membranes. Neck has full range of motion without eliciting any pain. EYES: The sclera were anicteric and conjunctiva were pink and moist. Extraocular movements were intact and pupils were equal round and reactive to light. Eye lids were unremarkable. PULMONARY: Unlabored respirations. Good breath sounds bilaterally. No audible rales rhonchi or wheezing was noted. CARDIOVASCULAR: There is a regular rate and rhythm without any murmurs gallops or rubs. Femoral pulses are equal bilaterally ABDOMEN: Soft and nontender with normal bowel sounds. No palpable organomegaly was noted. There is no palpable pulsatile mass. SKIN: Skin is clear with no lesions or rashes and otherwise unremarkable. NEUROLOGIC: Patient is alert and oriented x3. Cranial nerves II through XII are grossly intact. Patient has slightly decreased plantar dorsiflexion on the right compared left but patient states this is baseline patient's right orthopedics pediatric physician is also slightly weaker than the left but again patient states is his baseline. Normal speech, volume and content. Symmetrical smile. Finger to nose test was done bilaterally on the left was normal to right was a little bit off but patient states is normal because she has more weakness on the right. MUSCULOSKELETAL: Normal extremities with adequate strength and full range of motion. No lower extremity swelling or edema. No calf tenderness. LYMPHATICS: No significant lymphadenopathy is noted PSYCHIATRIC: Normal psychiatric evaluation. Limitations: no limitations Course Vital Signs 07/15/22 07/15/22 07/15/22 14:11 16:35 19:47 Temperature 99.5 F Pulse Rate 109 H 107 H 112 H Respiratory 16 16 18 Rate Blood Pressure 129/70 125/80 149/125 O2 Sat by Pulse 99 98 98 Oximetry Medical Decision Making - Medical Decision Making EKG was interpreted by myself shows sinus tachycardia at 108 bpm WV interval 184 QRS is 68 QT interval 320 QTC is 428. Patient's EKG shows no ST segment elevation or depression. Was pt. sent in by a medical professional or institution? @ -No Did you speak to anyone other than the patient for history? @ -EMS and family Did you review nursing and triage notes? @ -I agree with notes Were old charts reviewed? @ -I looked up previous hospital admissions and the doctor's H&P and discharge notes Differential Diagnosis? @ -Differential Dizziness: Benign paroxysmal positional Vertigo, Menieres disease, otitis media, acoustic neuroma, vertebrobasilar insufficiency, cerebellar stroke, encephalitis, hypovolemic, arrhythmia, coronary artery syndrome, anemia, this is not meant to be an all-inclusive list EKG interpreted by me (3pts min.)? @ -As above X-rays interpreted by me (1pt min.)? @ -I interpreted the chest x-ray showed no acute abnormality. CT interpreted by me (1pt min.)? @ -None U/S interpreted by me (1pt. min.)? @ -None What testing was considered but not performed? (CT, X-rays, U/S, labs)? Why? @ -I did consider head CT but since this was indicative of the patient's exacerbation of multiple sclerosis and she had no new focal deficits I did not CT her What meds were considered but not given? Why? @ -No Did you discuss the management of the patient with other professionals? @ -I spoke with Dr. Pate to admit this patient Did you reconcile home meds? @ -No Was smoking cessation discussed for >3mins.? @ -No Was critical care preformed (if so, how long)? @ -No Were there social determinants of health that impacted care today? How? (Homelessness, low income, unemployed, alcoholism, drug addiction, transportation, low edu. Level, literacy, decrease access to med. care, group home, rehab)? @ -No Was there de-escalation of care discussed even if they declined? (Discuss DNR or withdrawal of care, Hospice)? @ -No What co-morbidities impacted this encounter? (DM, HTN, Smoking, COPD, CAD, Cancer, CVA, Hep., AIDS, mental health diagnosis, sleep apnea, morbid obesity)? @ -No Was patient admitted / discharged? @ -Patient will be admitted. I spoke with Dr. Pate she agreed to admit the patient admitted the patient I did give the patient Solu-Medrol in the emergency department also consult neurology. Undiagnosed new problem with uncertain prognosis? @ -No Drug Therapy requiring intensive monitoring for toxicity (Heparin, Nitro, Insulin, Cardizem)? @ -No Were any procedures done? @ -No Diagnosis/symptom? @ -Exacerbation of multiple sclerosis Acute, or Chronic, or Acute on Chronic? @ -Acute on chronic Uncomplicated (without systemic symptoms) or Complicated (systemic symptoms)? @ -Uncomplicated Side effects of treatment? @ -No Exacerbation, Progression, or Severe Exacerbation] @ -Exacerbation Poses a threat to life or bodily function? @ -No chest - Lab Data Result diagrams: 07/15/22 16:55 07/15/22 16:55 Lab Results 07/15/22 07/15/22 07/15/22 Range/Units 14:21 14:21 16:55 WBC 11.3 H (3.8-10.6) k/uL RBC 4.20 (3.80-5.40) m/uL Hgb 13.8 (11.4-16.0) gm/dL Hct 39.6 (34.0-46.0) % MCV 94.2 (80.0-100.0) fL MCH 32.8 (25.0-35.0) pg MCHC 34.8 (31.0-37.0) g/dL RDW 13.2 (11.5-15.5) % Plt Count 227 (150-450) k/uL MPV 8.6 Sodium (137-145) mmol/L Potassium (3.5-5.1) mmol/L Chloride (98-107) mmol/L Carbon Dioxide (22-30) mmol/L Anion Gap mmol/L BUN (7-17) mg/dL Creatinine (0.52-1.04) mg/dL Est GFR (CKD-EPI)AfAm (>60 ml/min/1.73 sqM) Est GFR (CKD-EPI)NonAf (>60 ml/min/1.73 sqM) Glucose (74-99) mg/dL Calcium (8.4-10.2) mg/dL Magnesium (1.6-2.3) mg/dL Total Bilirubin (0.2-1.3) mg/dL AST (14-36) U/L ALT (4-34) U/L Alkaline Phosphatase (38-126) U/L Total Protein (6.3-8.2) g/dL Albumin (3.5-5.0) g/dL TSH (0.465-4.680) mIU/L Urine Color Yellow Urine Appearance Clear (Clear) Urine pH 6.5 (5.0-8.0) Ur Specific [place] 1.026 (1.001-1.035) Urine Protein Trace H (Negative) Urine Glucose (UA) Negative (Negative) Urine Ketones 1+ H (Negative) Urine Blood Negative (Negative) Urine Nitrite Negative (Negative) Urine Bilirubin Negative (Negative) Urine Urobilinogen <2.0 (<2.0) mg/dL Ur Leukocyte Esterase Negative (Negative) Influenza Type A (PCR) Not Detected (Not Detectd) Influenza Type B (PCR) Not Detected (Not Detectd) RSV (PCR) Not Detected (Not Detectd) SARS-CoV-2 (PCR) Not Detected (Not Detectd) 07/15/22 Range/Units 16:55 WBC (3.8-10.6) k/uL RBC (3.80-5.40) m/uL Hgb (11.4-16.0) gm/dL Hct (34.0-46.0) % MCV (80.0-100.0) fL MCH (25.0-35.0) pg MCHC (31.0-37.0) g/dL RDW (11.5-15.5) % Plt Count (150-450) k/uL MPV Sodium 142 (137-145) mmol/L Potassium 4.3 (3.5-5.1) mmol/L Chloride 109 H (98-107) mmol/L Carbon Dioxide 25 (22-30) mmol/L Anion Gap 8 mmol/L BUN 22 H (7-17) mg/dL Creatinine 0.74 (0.52-1.04) mg/dL Est GFR (CKD-EPI)AfAm >90 (>60 ml/min/1.73 sqM) Est GFR (CKD-EPI)NonAf 85 (>60 ml/min/1.73 sqM) Glucose 104 H (74-99) mg/dL Calcium 8.7 (8.4-10.2) mg/dL Magnesium 2.1 (1.6-2.3) mg/dL Total Bilirubin 0.6 (0.2-1.3) mg/dL AST 31 (14-36) U/L ALT 23 (4-34) U/L Alkaline Phosphatase 110 (38-126) U/L Total Protein 6.5 (6.3-8.2) g/dL Albumin 4.1 (3.5-5.0) g/dL TSH 1.670 (0.465-4.680) mIU/L Urine Color Urine Appearance (Clear) Urine pH (5.0-8.0) Ur Specific [place] (1.001-1.035) Urine Protein (Negative) Urine Glucose (UA) (Negative) Urine Ketones (Negative) Urine Blood (Negative) Urine Nitrite (Negative) Urine Bilirubin (Negative) Urine Urobilinogen (<2.0) mg/dL Ur Leukocyte Esterase (Negative) Influenza Type A (PCR) (Not Detectd) Influenza Type B (PCR) (Not Detectd) RSV (PCR) (Not Detectd) SARS-CoV-2 (PCR) (Not Detectd) Disposition Clinical Impression: Multiple sclerosis exacerbation Disposition: ADMITTED IP TO THIS [facility] Time of Disposition: 18:52
[2022-07-15] MEDS: NON FORMULARY DRUG (Dalfampridine [Dalfampridine Er] 10 MG Tab.Er.12h) PO SCH (22:17)
--- NOTE | 2022-07-16 00:05 | P.HPIM ---
History of Present Illness H&P Date: 07/15/22 Chief Complaint: falling , leg weakness 66 year old female with MS patient coming in for evaluation due to dizziness and falls over the past couple days , denies passing out or head injury. she reports this is typical of her MS exacerbation , which she had multiple episodes over the past 20 years. she mainly would feel weakness in her right lower extremity or both legs. she denies any fever, chills, cough , URI symptoms, changes in her bowel or urinary habits. denies any rashes. she reports more weakness over her right lwoer extremity than the left , which is usually typical of her flare ups per her report. she adds, that normally she would be given a short course of steroids and improves. blood work over all unremarkable except for some leukocytosis . acute respiratory viral panel is negative CXR no acute pathology Review of Systems Pertinent positives as noted in HPI. All other systems were reviewed and are negative Past Medical History Past Medical History: Memory Impairment Additional Past Medical History / Comment(s): MULTIPLE SCLEROSIS History of Any Multi-Drug Resistant Organisms: None Reported Past Surgical History: Hysterectomy, Tonsillectomy Past Anesthesia/Blood Transfusion Reactions: No Reported Reaction Past Psychological History: No Psychological Hx Reported Smoking Status: Never smoker Past Alcohol Use History: None Reported Past Drug Use History: None Reported - Past Family History Mother Family Medical History: Cancer Additional Family Medical History / Comment(s): HODGKINS LYMPHOMA Father Family Medical History: Myocardial Infarction ([place]) Medications and Allergies Home Medications Medication Instructions Recorded Confirmed Type Dalfampridine [Dalfampridine ER] 10 mg PO Q12H 07/28/19 07/15/22 History Aspirin EC [Ecotrin Low Dose] 81 mg PO DAILY 10/23/21 07/15/22 History Ofatumumab [Kesimpta Pen] 20 mg SQ QMONTHLY 10/23/21 07/15/22 History Mirabegron [Myrbetriq] 50 mg PO DAILY 07/15/22 07/15/22 History Allergies Allergy/AdvReac Type Severity Reaction Status Date / Time No Known Allergies Allergy Verified 07/15/22 15:18 Physical Exam Vitals: Vital Signs Temp Pulse Pulse Resp BP BP Pulse Ox 07/15/22 21:27 98.7 F 71 18 146/81 95 07/15/22 20:41 94 15 132/70 98 07/15/22 19:47 112 H 18 149/125 98 07/15/22 16:35 107 H 16 125/80 98 07/15/22 14:11 99.5 F 109 H 16 129/70 99 Intake and Output 07/15/22 07/15/22 07/15/22 06:59 14:59 22:59 Other: Voiding Method External Catheter Weight 74.843 kg 72.575 kg Constitutional: No acute distress, conversant, pleasant Eyes: Anicteric sclerae, moist conjunctiva, Pupils equal round reactive to light ENMT: NC/AT Oropharynx clear, no erythema, or exudates Neck: Supple, no masses, or JVD No carotid bruits No thyromegaly Lungs: Clear to auscultation Clear to percussion Normal respiratory effort, no accessory muscle use Cardiovascular: Heart regular in rate and rhythm, No murmurs, gallops, or rubs No peripheral edema Abdominal: Soft Nontender, no guarding, rebound or rigidity Abdomen moving with respiration Normoactive bowel sounds No hepatomegaly, No splenomegaly No palpable mass No abdominal wall hernia noted Skin: Normal temperature, tone, texture, turgor Extremities: No digital cyanosis No clubbing Pedal pulses intact and symmetrical Radial pulses intact and symmetrical No calf tenderness Psychiatric: Alert and oriented to person, place and time Appropriate affect fair judgement Neuro Muscles Strength 5/5 in bilateral upper extremity , 3/5 Right lower extremity and left lower extremity 4/5 Sensation to light touch grossly present throughout Cranial nerves II-XII grossly intact Lymphatics: no palpable cervical or supraclavicular lymph nodes Results CBC & Chem 7: 07/15/22 16:55 07/15/22 16:55 Labs: Abnormal Lab Results - Last 24 Hours (Table) 07/15/22 07/15/22 07/15/22 Range/Units 14:21 16:55 16:55 WBC 11.3 H (3.8-10.6) k/uL Chloride 109 H (98-107) mmol/L BUN 22 H (7-17) mg/dL Glucose 104 H (74-99) mg/dL Urine Protein Trace H (Negative) Urine Ketones 1+ H (Negative) Thrombosis Risk Factor Assmnt - Choose All That Apply Any of the Below Risk Factors Present?: Yes Each Factor Represents 1 point: Obesity (BMI >25) Other Risk Factors: Yes Each Risk Factor Represents 2 Points: Age 61-74 years Other congenital or acquired thrombophilia - If yes, enter type in comment: No Thrombosis Risk Factor Assessment Total Risk Factor Score: 3 Thrombosis Risk Factor Assessment Level: Moderate Risk Assessment and Plan Assessment: acute MS exacerbation initiated on steroids solumedrol 1000 IVPB daily neuro consult neuro checks fall precautions pain control PT eval full code DVT PPX heparin sc tid
[2022-07-16] MEDS ORDERED: ACETAMINOPHEN TAB 325 MG TAB PO PRN (08:59)
[2022-07-16] MEDS ORDERED: methylPREDNISolone SOD SUCCIN 500 MG in SODIUM CHLORIDE 0.9% 100 ML IVPB SCH (09:00)
[2022-07-16] MEDS ORDERED: NON FORMULARY DRUG (Mirabegron [Myrbetriq] 50 MG Tab.Er.24h) PO SCH (09:00)
[2022-07-16] MEDS: SODIUM CHLORIDE 0.9% IVPB SCH (09:01)
[2022-07-16] MEDS: HEPARIN SODIUM,PORCINE/PF 5,000 UNIT/0.5 ML SYRINGE SQ SCH ×3 (09:01→23:49)
[2022-07-16] MEDS: METHYLPREDNISOLONE SOD SUCCIN IVPB SCH (09:01)
[2022-07-16] MEDS: ASPIRIN 81 MG PO SCH (09:01)
[2022-07-16] MEDS: NON FORMULARY DRUG (Dalfampridine [Dalfampridine Er] 10 MG Tab.Er.12h) PO SCH (09:02)
[2022-07-16] MEDS: DALFAMPRIDINE 10 MG PO SCH ×2 (12:59→21:57)
[2022-07-16] MEDS: MYBETRIQ 50 MG PO SCH (12:59)
--- NOTE | 2022-07-16 15:28 | P.PN ---
Subjective Progress Note Date: 07/16/22 Principal diagnosis: right leg weakness Patient continues to have right leg weakness and was wobbly when seen by PT today. Has hx of falls. No pain. Objective - Vital Signs Vital signs: Vital Signs Temp 97.8 F 07/16/22 13:12 Pulse 80 07/16/22 13:12 Resp 16 07/16/22 13:12 BP 144/80 07/16/22 13:12 Pulse Ox 92 L 07/16/22 13:12 FiO2 Intake & Output 07/15/22 07/16/22 07/16/22 18:59 06:59 18:59 Intake Total 200 Output Total 200 Balance 0 Weight 74.843 kg 72.575 kg Intake: Oral 200 Output: Urine 200 Other: Voiding Method External Catheter External Catheter # Voids 1 - Exam Constitutional: No acute distress, conversant, pleasant Eyes:Anicteric sclerae, moist conjunctiva, no lid-lag, PERRLA, ENMT: Oropharynx clear, no erythema, exudates Neck: Supple, FROM, no masses, or JVD, No carotid bruits, No thyromegaly Lungs: Clear to auscultation, Clear to percussion, Normal respiratory effort, no accessory muscle use Cardiovascular: Heart regular in rate and rhythm, No murmurs, gallops, or rubs, No peripheral edema Abdominal: Soft, Nontender, no guarding, rebound or rigidity, Normoactive bowel sounds, No hepatomegaly, No splenomegaly, No palpable mass Skin: Normal temperature, tone, texture, turgor, no induration, No subcutaneous nodules, No rash, lesions, No ulcers Extremities: No digital cyanosis, No clubbing, Pedal pulses intact and symmetrical, Radial pulses intact and symmetrical, No calf tenderness Psychiatric: Alert and oriented to person, place and time, appropriate affect, intact judgement Neuro: Right leg weakness, Sensation to light touch grossly present throughout, Cranial nerves II-XII grossly intact, no focal sensory deficits - Labs CBC & Chem 7: 07/15/22 16:55 07/15/22 16:55 Labs: Abnormal Lab Results - Last 24 Hours (Table) 07/15/22 07/15/22 Range/Units 16:55 16:55 WBC 11.3 H (3.8-10.6) k/uL Chloride 109 H (98-107) mmol/L BUN 22 H (7-17) mg/dL Glucose 104 H (74-99) mg/dL Assessment and Plan Plan: Acute MS exacerbation Continue on steroids solumedrol 1000 IVPB daily neuro consult neuro checks fall precautions pain control Seen by PT advising home with home care full code DVT PPX heparin sc tid
--- NOTE | 2022-07-16 19:07 | P.CNNES ---
History of Present Illness Consult date: 07/16/22 Requesting physician: Dejuan Rothman Reason for Consult: Exacerbation of multiple sclerosis History of Present Illness: Patient is a 66-year-old female with history of relapsing remitting multiple sclerosis, possible dementia, previously seen by neurology services in the past, came to the hospital by ambulance yesterday at 1:56 PM for possible MS exacerbation. Patient's was also present at the time of this interview. He states that patient fell down, and was down on the floor for couple hours, couldn't get up. Patient was " weight", and he could not pick her up. Therefore they called the ambulance and was brought to the hospital. Patient always has right leg weakness, which appears to be worse for her particularly in the last 3-4 days before arrival to the hospital. Patient has been taking Kesimpta for MS, which is monthly subcutaneous injections. Patient was supposed to receive it on 07/02/2022, but the pharmacy did not have the prescription, therefore she has not received it since then. Her last dose of Kesimpta was on 06/01/2022. Patient follows up with Dr. calvert in [facility]. As per EMS flow sheet in the arrived patient complained of fall. Patient has history of MS and has been having exacerbation of her MS causing her to become weak and falling due to this. This morning she fell and due to her MS she couldn't even hold herself upright in a seated position. Patient mentioned that she normally has to go with IV steroids to get back to normal. She denied any pain or injury from the fall. EKG shows sinus tachycardia. Chest x-ray showed no acute cardiopulmonary process. Blood test shows WBC 11.3, hemoglobin 13.8, platelets 227. Electrolytes are normal, renal functions and hepatic panel normal. TSH is normal. UA negative. Influenza screen, RSV and [place] virus PCR is negative. TSH 1.67. Vitamin B12 500, folate 19.8 and A1c 5.7 on 10/07/2021. Patient has history of MS for over 20 years. Patient has previously failed Tysabri and Ocrevus. Patient has been on Kesimpta for the last 1-1/2 years. Review of Systems Constitutional: Denies chills, Denies fever Eyes: denies blurred vision, denies pain Ears, nose, mouth and throat: Denies headache, Denies sore throat Cardiovascular: Denies chest pain, Denies shortness of breath Respiratory: Denies cough Gastrointestinal: Denies abdominal pain, Denies diarrhea, Denies nausea, Denies vomiting Musculoskeletal: Reports gait dysfunction, Reports muscle weakness Integumentary: Denies pruritus, Denies rash Neurological: Reports as per HPI, Reports memory loss, Denies migraines, Denies visual changes Psychiatric: Reports confusion, Reports memory loss Endocrine: Denies fatigue, Denies weight change Past Medical History Past Medical History: Memory Impairment Additional Past Medical History / Comment(s): MULTIPLE SCLEROSIS History of Any Multi-Drug Resistant Organisms: None Reported Past Surgical History: Hysterectomy, Tonsillectomy Past Anesthesia/Blood Transfusion Reactions: No Reported Reaction Past Psychological History: No Psychological Hx Reported Smoking Status: Never smoker Past Alcohol Use History: None Reported Past Drug Use History: None Reported - Past Family History Mother Family Medical History: Cancer Additional Family Medical History / Comment(s): HODGKINS LYMPHOMA Father Family Medical History: Myocardial Infarction (MD) Medications and Allergies Home Medications Medication Instructions Recorded Confirmed Type Dalfampridine [Dalfampridine ER] 10 mg PO Q12H 07/28/19 07/15/22 History Aspirin EC [Ecotrin Low Dose] 81 mg PO DAILY 10/23/21 07/15/22 History Ofatumumab [Kesimpta Pen] 20 mg SQ QMONTHLY 10/23/21 07/15/22 History Mirabegron [Myrbetriq] 50 mg PO DAILY 07/15/22 07/15/22 History Allergies Allergy/AdvReac Type Severity Reaction Status Date / Time No Known Allergies Allergy Verified 07/15/22 15:18 Physical Examination - Vital Signs Vital Signs: Vital Signs Temp Pulse Pulse Pulse Resp BP BP 07/16/22 13:12 97.8 F 80 16 07/16/22 07:21 98.2 F 90 18 144/84 07/16/22 02:01 98.7 F 99 20 137/86 07/15/22 21:27 98.7 F 71 18 146/81 07/15/22 20:41 94 15 132/70 07/15/22 19:47 112 H 18 149/125 07/15/22 16:35 107 H 16 125/80 BP Pulse Ox 07/16/22 13:12 144/80 92 L 07/16/22 07:21 96 07/16/22 02:01 95 07/15/22 21:27 95 07/15/22 20:41 98 07/15/22 19:47 98 07/15/22 16:35 98 Intake and Output 07/16/22 07/16/22 07/16/22 06:59 14:59 22:59 Intake Total 200 Output Total 200 Balance 0 Intake: Oral 200 Output: Urine 200 Other: Voiding Method External Catheter # Voids 1 Patient is an elderly female, in no acute distress. Patient is alert awake. She states is the month of October, and states the year is 2019, but then said was 2039. She states that she is in the [facility]. She thinks she is in [facility] but then said was "[facility]". She became upset when the name of president was asked as she does not like him. Speech and language functions are normal. Patient can name and repeat very well. No aphasia or dysarthria. Attention, concentration and fund of knowledge is adequate. On cranial nerve examination, pupils are equal, round and reacting to light, visual moura are full on confrontation, with no neglect on double simultaneous depression. Extraocular muscles are intact with no nystagmus. Face is symmetric, tongue protrudes to the midline. Palatal elevation and sensation normal, hearing and shoulder shrug normal, facial sensation normal. On muscle strength testing, there is no pronator drift and the strength is normal in arms distally and proximally. In the lower extremities (right/left) hip flexion 2-3-/5, ankle dorsiflexion trace/5, plantarflexion 5/5. Deep tendon reflexes are (right/left) biceps trace/trace, brachioradialis trace/trace, knee 2+/3, ankle 2/2 and plantars are upgoing bilaterally. Sensory to touch is equal with no neglect on double simultaneous stimulation. Cerebellar function showed no ataxia for [id number] testing. No ataxia for [id number] testing with the left leg, cannot perform with the right leg. Tone and bulk of muscles normal. Gait deferred.. On general examination, there is no carotid bruit or murmur, S1-S2 audible. Chest is clear on consultation. Abdomen is soft nontender. No organomegaly, bowel sounds present. Peripheral pulses are present. No edema. 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 Prominent ventric les, possible mild hydrocephalus. Patient underwent large volume spinal tap in September 2021 without any clinical improvement in her gait. Plan: * Continue Solu-Medrol 1 g IVPB daily for 3-5 days. * Patient's memory function seems to be getting worse. Patient has previously t ried Aricept but produced nausea. We will try Namenda 5 mg twice a day. Dose can be further optimize as an outpatient. * PT OT, evaluate gait. * Neurology will follow. Thank you for the for consult.
[2022-07-16] MEDS: MEMANTINE 5 MG TAB PO SCH (21:57)
[2022-07-17] MEDS: MEMANTINE 5 MG TAB PO SCH ×2 (09:38→22:37)
[2022-07-17] MEDS: ASPIRIN 81 MG PO SCH (09:38)
[2022-07-17] MEDS: HEPARIN SODIUM,PORCINE/PF 5,000 UNIT/0.5 ML SYRINGE SQ SCH ×3 (09:38→23:27)
[2022-07-17] MEDS: MYBETRIQ 50 MG PO SCH (09:39)
[2022-07-17] MEDS: DALFAMPRIDINE 10 MG PO SCH ×2 (09:39→22:36)
[2022-07-17] MEDS: METHYLPREDNISOLONE SOD SUCCIN IVPB SCH (09:44)
[2022-07-17] MEDS: SODIUM CHLORIDE 0.9% IVPB SCH (09:44)
[2022-07-17 10:43] LABS: Basophils # (A) 0.02 X 10*3/uL (0.00-0.10); Basophils % (A) 0.2 %; Eosinophils # (A) 0 X 10*3/uL (0.04-0.35); Eosinophils % (A) 0 %; HCT 40.8 % (37.2-46.3); HGB 13.2 g/dL (12.0-15.0); Immature Grans, Automated 0.5 %; Lymphocytes # (A) 0.59 X 10*3/uL (0.90-5.00); Lymphocytes % (A) 4.6 %; MCH 32.4 pg (27.0-32.0); MCHC 32.4 g/dL (32.0-37.0); Mean Platelet Volume 11.2 fL (9.5-12.2); Monocytes # (A) 0.71 X 10*3/uL (0.20-1.00); Monocytes % (A) 5.6 %; NRBC Per 100 WBC 0 /100 WBCS (0.0-0.0); Neutrophils # (A) 11.38 X 10*3/uL (1.80-7.70); Neutrophils % (A) 89.1 %; Platelet Count 290 X 10*3/uL (140-440); RBC 4.08 X 10*6/uL (4.10-5.20); RDW 12.8 % (11.5-14.5); WBC 12.77 X 10*3/uL (4.50-10.00)
[2022-07-17 11:04] LABS: African American GFR (CKD) 77.2 (60.0-200.0); Albumin 3.9 g/dL (3.8-4.9); Albumin/Globulin Ratio 2.05 (1.60-3.17); Anion Gap 10.9 mmol/L (10.00-18.00); BUN/Creat Ratio 23.56 Ratio (12.00-20.00); Blood Urea Nitrogen 21.2 mg/dL (9.0-27.0); Calcium 8.7 mg/dL (8.7-10.3); Carbon Dioxide 23.1 mmol/L (20.0-27.5); Globulin 1.9 g/dL (1.6-3.3); Magnesium 2.1 mg/dL (1.5-2.4); Non-African American GFR(CKD) 66.6 (60.0-200.0); Potassium 4.3 mmol/L (3.5-5.5); Total Bilirubin 0.2 mg/dL (0.30-1.20); Total Protein 5.8 g/dL (6.2-8.2)
--- NOTE | 2022-07-17 15:16 | P.PN ---
Subjective Progress Note Date: 07/17/22 Principal diagnosis: right leg weakness Patient still weak and wobbly when she transferred to the recliner chair this morning. States she is feeling better and stronger however. No fevers or chills. Objective - Vital Signs Vital signs: Vital Signs Temp 97.6 F 07/17/22 13:10 Pulse 73 07/17/22 13:10 Resp 18 07/17/22 13:10 BP 168/73 07/17/22 13:10 Pulse Ox 94 L 07/17/22 13:10 FiO2 Intake & Output 07/16/22 07/17/22 07/17/22 18:59 06:59 18:59 Intake Total 300 Balance 300 Intake: Oral 300 Other: Voiding Method External Catheter Toilet Toilet External Catheter External Catheter # Voids 2 3 2 # Bowel Movements 1 - Exam Constitutional: No acute distress, conversant, pleasant Eyes:Anicteric sclerae, moist conjunctiva, no lid-lag, PERRLA, ENMT: Oropharynx clear, no erythema, exudates Neck: Supple, FROM, no masses, or JVD, No carotid bruits, No thyromegaly Lungs: Clear to auscultation, Clear to percussion, Normal respiratory effort, no accessory muscle use Cardiovascular: Heart regular in rate and rhythm, No murmurs, gallops, or rubs, No peripheral edema Abdominal: Soft, Nontender, no guarding, rebound or rigidity, Normoactive bowel sounds, No hepatomegaly, No splenomegaly, No palpable mass Skin: Normal temperature, tone, texture, turgor, no induration, No subcutaneous nodules, No rash, lesions, No ulcers Extremities: No digital cyanosis, No clubbing, Pedal pulses intact and symmetri rekha, Radial pulses intact and symmetrical, No calf tenderness Psychiatric: Alert and oriented to person, place and time, appropriate affect, intact judgement Neuro: Right leg weakness, Sensation to light touch grossly present throughout, Cranial nerves II-XII grossly intact, no focal sensory deficits - Labs CBC & Chem 7: 07/17/22 07:18 07/17/22 07:18 Labs: Abnormal Lab Results - Last 24 Hours (Table) 07/17/22 07/17/22 Range/Units 07:18 07:18 WBC 12.77 H (4.50-10.00) X 10*3/uL RBC 4.08 L (4.10-5.20) X 10*6/uL MCV 100.0 H (80.0-97.0) fL MCH 32.4 H (27.0-32.0) pg Immature Gran # 0.07 H (0.00-0.04) X 10*3/uL Neutrophils # 11.38 H (1.80-7.70) X 10*3/uL Lymphocytes # 0.59 L (0.90-5.00) X 10*3/uL Eosinophils # 0 L (0.04-0.35) X 10*3/uL BUN/Creatinine Ratio 23.56 H (12.00-20.00) Ratio Glucose 126 H (70-110) mg/dL Total Bilirubin 0.20 L (0.30-1.20) mg/dL Total Protein 5.8 L (6.2-8.2) g/dL Assessment and Plan Plan: Acute MS exacerbation Continue on steroids solumedrol 1000 IVPB daily neuro following neuro checks fall precautions pain control Seen by PT advising home with home care full code DVT PPX heparin sc tid
[2022-07-18 07:45] VITALS: TEMP 98.4
[2022-07-18] MEDS: HEPARIN SODIUM,PORCINE/PF 5,000 UNIT/0.5 ML SYRINGE SQ SCH ×2 (08:11→15:17)
[2022-07-18] MEDS: MEMANTINE 5 MG TAB PO SCH (08:13)
[2022-07-18] MEDS: ASPIRIN 81 MG PO SCH (08:13)
[2022-07-18] MEDS: DALFAMPRIDINE 10 MG PO SCH (08:14)
[2022-07-18] MEDS: MYBETRIQ 50 MG PO SCH (08:14)
[2022-07-18] MEDS ORDERED: methylPREDNISolone SOD SUCCIN 1,000 MG in SODIUM CHLORIDE 0.9% 250 ML IVPB SCH (09:00)
--- NOTE | 2022-07-18 09:27 | P.PN ---
Subjective Progress Note Date: 07/17/22 Patient was seen for a follow-up. Patient laying comfortably in the bed. Offers no complaints. Feels stronger. Patient tolerating high-dose steroids well. Objective - Vital Signs Vital signs: Vital Signs Temp 98.3 F 07/17/22 20:00 Pulse 80 07/17/22 20:00 Resp 16 07/17/22 20:00 BP 163/87 07/17/22 20:00 Pulse Ox 94 L 07/17/22 20:00 FiO2 Intake & Output 07/17/22 07/17/22 07/18/22 06:59 18:59 06:59 Intake Total 300 Balance 300 Intake: Oral 300 Other: Voiding Method Toilet Toilet External Catheter External Catheter # Voids 3 1 # Bowel Movements 1 - Exam Patient's mental status, speech and limits functions are stable. Muscle strength is normal in the bilateral upper limbs. Muscle strength is normal in the left lower limb. Regarding right lower limb, hip flexion 4, ankle dorsiflexion 1, plantar flexion 1. - Labs CBC & Chem 7: 07/17/22 07:18 07/17/22 07:18 Labs: Abnormal Lab Results - Last 24 Hours (Table) 07/17/22 07/17/22 Range/Units 07:18 07:18 WBC 12.77 H (4.50-10.00) X 10*3/uL RBC 4.08 L (4.10-5.20) X 10*6/uL MCV 100.0 H (80.0-97.0) fL MCH 32.4 H (27.0-32.0) pg Immature Gran # 0.07 H (0.00-0.04) X 10*3/uL Neutrophils # 11.38 H (1.80-7.70) X 10*3/uL Lymphocytes # 0.59 L (0.90-5.00) X 10*3/uL Eosinophils # 0 L (0.04-0.35) X 10*3/uL BUN/Creatinine Ratio 23.56 H (12.00-20.00) Ratio Glucose 126 H (70-110) mg/dL Total Bilirubin 0.20 L (0.30-1.20) mg/dL Total Protein 5.8 L (6.2-8.2) g/dL Assessment and Plan Assessment: * Probable MS exacerbation * Relapsing remitting MS * 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 Prominent ventricles, possible mild hydrocephalus. Patient underwent large volume spinal tap in September 2021 without any clinical improvement in her gait. Plan: * Continue Solu-Medrol 1 g IVPB daily for 3-5 days. Today is day #2. Patient will discuss with her if she likes to have treatment for total of 3 versus 5 days. * Patient's memory function seems to be getting worse. Patient has previously tried Aricept but produced nausea. We will try Namenda 5 mg twice a day. Dose can be further optimize as an outpatient. * PT OT, evaluate gait. * DVT prophylaxis: Patient on heparin subcu.
--- NOTE | 2022-07-18 12:01 | P.PN ---
Subjective Progress Note Date: 07/18/22 Principal diagnosis: right leg weakness Patient continues to be wobbly with ambulation. She is requiring 1 person assist with walking. Still having right leg weakness. No fevers or chills. No nausea or vomiting. No other overnight events. Objective - Vital Signs Vital signs: Vital Signs Temp 98.4 F 07/18/22 07:10 Pulse 78 07/18/22 07:10 Resp 17 07/18/22 07:10 BP 147/84 07/18/22 07:10 Pulse Ox 97 07/18/22 07:10 FiO2 Intake & Output 07/17/22 07/18/22 07/18/22 18:59 06:59 18:59 Other: Voiding Method Toilet Toilet External Catheter # Voids 1 2 1 # Bowel Movements 1 1 - Exam Constitutional: No acute distress, conversant, pleasant Eyes:Anicteric sclerae, moist conjunctiva, no lid-lag, PERRLA, ENMT: Oropharynx clear, no erythema, exudates Neck: Supple, FROM, no masses, or JVD, No carotid bruits, No thyromegaly Lungs: Clear to auscultation, Clear to percussion, Normal respiratory effort, no accessory muscle use Cardiovascular: Heart regular in rate and rhythm, No murmurs, gallops, or rubs, No peripheral edema Abdominal: Soft, Nontender, no guarding, rebound or rigidity, Normoactive bowel sounds, No hepatomegaly, No splenomegaly, No palpable mass Skin: Normal temperature, tone, texture, turgor, no induration, No subcutaneous nodules, No rash, lesions, No ulcers Extremities: No digital cyanosis, No clubbing, Pedal pulses intact and symmetrical, Radial pulses intact and symmetrical, No calf tenderness Psychiatric: Alert and oriented to person, place and time, appropriate affect, intact judgement Neuro: Right leg weakness, Sensation to light touch grossly present throughout, Cranial nerves II-XII grossly intact, no focal sensory deficits - Labs CBC & Chem 7: 07/17/22 07:18 07/17/22 07:18 Assessment and Plan Plan: Acute MS exacerbation Continue on steroids solumedrol 1000 IVPB daily neuro following neuro checks fall precautions pain control Seen by PT advising home with home care full code DVT PPX heparin sc tid
[2022-07-18 12:46] VITALS: BP 147/82; PULSE 75; RESP 18
--- NOTE | 2022-07-18 15:50 | P.DS ---
Providers Date of admission: 07/15/22 18:53 Expected date of discharge: 07/18/22 Attending physician: Marielena Pate DO Consults: 07/15/22 18:53 Consult Physician Urgent Consulting Provider: Manish Leal Consult Reason/Comments: Exacerbation of multiple sclerosis Do you want consulting provider notified?: Yes Primary care physician: [facility] Course: 66 year old female with MS history who presented for evaluation due to dizziness and falls over the past couple days, denies passing out or head injury. She reports this is typical of her MS exacerbation , which she had multiple episodes over the past 20 years. She also had weakness in her right lower extremity or both legs. Denies any fever, chills, cough , URI symptoms, changes in her bowel or urinary habits. denies any rashes. She reports more weakness over her right lower extremity than the left. She adds, that normally she would be given a short course of steroids and improves. In the ER her blood work overall was unremarkable except for some leukocytosis. Acute respiratory viral panel is negative. CXR no acute pathology. She was subsequently admitted for MS exacerbation. She was started on high-dose steroids with Solu-Medrol 1 g IV daily. She was seen by neurology who agreed with the management. The weakness in her right lower extremity improved. Currently she is able to ambulate and function by herself. She will be discharged home in stable condition. Patient was seen and examined on the day of discharge 07/18 Time for discharge 35 minutes. Plan - Discharge Summary Discharge Rx Participant: No New Discharge Prescriptions: New predniSONE 10 mg PO DAILY 10 Days #80 tab Continue Dalfampridine [Dalfampridine ER] 10 mg PO Q12H Aspirin EC [Ecotrin Low Dose] 81 mg PO DAILY Mirabegron [Myrbetriq] 50 mg PO DAILY Ofatumumab [Kesimpta Pen] 20 mg SQ QMONTHLY Discharge Medication List Dalfampridine [Dalfampridine ER] 10 mg PO Q12H 07/28/19 [History] Aspirin EC [Ecotrin Low Dose] 81 mg PO DAILY 10/23/21 [History] Ofatumumab [Kesimpta Pen] 20 mg SQ QMONTHLY 10/23/21 [History] Mirabegron [Myrbetriq] 50 mg PO DAILY 07/15/22 [History] predniSONE 10 mg PO DAILY 10 Days #80 tab 07/18/22 [Rx] Follow up Appointment(s)/Referral(s): Georgi Hernandez DO [Primary Care Provider] - 1-2 days Patient Instructions/Handouts: Multiple Sclerosis (DC)
== END 2022-07-18 17:18 | disposition home or self-care (01) | DRG 59 ==
LOC: EC 13:56 → 4SSUR 18:53 → 5NMEDONC 20:04
PROVIDERS: ADMIT Internal Medicine; ATTEND Internal Medicine
DX: G35 Multiple sclerosis (principal); G91.9 Hydrocephalus, unspecified; G30.9 Alzheimer's disease, unspecified; F02.80 Dementia in other diseases classified elsewhere, unspecified severity, without behavioral disturbance, psychotic disturbance, mood disturbance, and anxiety; D72.829 Elevated white blood cell count, unspecified; Z20.822 Contact with and (suspected) exposure to COVID-19; E66.9 Obesity, unspecified; Z68.29 Body mass index [BMI] 29.0-29.9, adult; W18.30XA Fall on same level, unspecified, initial encounter; R00.0 Tachycardia, unspecified; Z91.81 History of falling; Z79.899 Other long term (current) drug therapy; Z79.82 Long term (current) use of aspirin
CPT/HCPCS: 36415; 71046; 80053; 81003; 83735; 84443; 85025; 85027; 87636; 93005; 96374; 99285

== ENCOUNTER 2022-11-10 12:08 | Emergency (ER) | payer MEDICARE ==
[2022-11-10] MEDS ORDERED: SODIUM CHLORIDE 0.9% 1,000 ML IV STA (12:30)
--- NOTE | 2022-11-10 12:32 | ED ---
Syncope HPI - General Chief Complaint: Altered Mental Status Stated Complaint: Fall,Head Injury Time Seen by Provider: 11/10/22 12:13 Source: patient, EMS, RN notes reviewed, old records reviewed, Caregiver Mode of arrival: EMS Limitations: no limitations - History of Present Illness Initial Comments: This is a 67-year-old female DF from a fall fall down stairs, poor story history obtained from EMS and patient's to his emergency department, patient's is not here yet. Patient is a poor historian unable to provide history patient does suffer from MS her symptoms of MS currently normal and stable. Patient did have an fall and hit her head, bleeding from the back of her scalp. Patient denies history of syncope. Currently has no headache chest pain shortness of breath or abdominal pain. No blood thinners. MD Complaint: loss of consciousness -: unknown Prodromal Symptoms: none -: second(s) Witnessed: yes - by bystander Current Symptoms: back to baseline History: other (0) - Related Data Home Medications Medication Instructions Recorded Confirmed Dalfampridine [Dalfampridine ER] 10 mg PO BID 07/28/19 11/10/22 Aspirin EC [Ecotrin Low Dose] 81 mg PO DAILY 10/23/21 11/10/22 Ofatumumab [Kesimpta Pen] 20 mg SQ QMONTHLY 10/23/21 11/10/22 Mirabegron [Myrbetriq] 50 mg PO DAILY 07/15/22 11/10/22 Allergies Allergy/AdvReac Type Severity Reaction Status Date / Time No Known Allergies Allergy Verified 11/10/22 13:23 Review of Systems ROS Statement: Those systems with pertinent positive or pertinent negative responses have been documented in the HPI. ROS Other: All systems not noted in ROS Statement are negative. Past Medical History Past Medical History: Memory Impairment Additional Past Medical History / Comment(s): MULTIPLE SCLEROSIS History of Any Multi-Drug Resistant Organisms: None Reported Past Surgical History: Hysterectomy, Tonsillectomy Past Anesthesia/Blood Transfusion Reactions: No Reported Reaction Past Psychological History: No Psychological Hx Reported Smoking Status: Never smoker Past Alcohol Use History: None Reported Past Drug Use History: None Reported - Past Family History Mother Family Medical History: Cancer Additional Family Medical History / Comment(s): HODGKINS LYMPHOMA Father Family Medical History: Myocardial Infarction ([place]) General Exam Limitations: no limitations Course Vital Signs 11/10/22 11/10/22 12:13 16:10 Temperature 97.6 F 98.2 F Pulse Rate 88 96 Respiratory 20 18 Rate Blood Pressure 164/86 136/88 O2 Sat by Pulse 96 100 Oximetry - Reevaluation(s) Reevaluation #1: 11/10/22 20:35 Medical records reviewed Reevaluation #2: 11/10/22 20:35 Patient has no syncope or change in symptoms here in the ER, feels well and asking for discharge Reevaluation #3: 11/10/22 20:35 Patient informed results and questions answered Reevaluation #4: 11/10/22 20:35 Was pt. sent in by a medical professional or institution? @ -no Did you speak to anyone other than the patient for history? @ -no Did you review nursing and triage notes? @ -agree Were old charts reviewed? @ -no Differential Diagnosis? @ -syncope EKG interpreted by me (3pts min.)? @ -no X-rays interpreted by me (1pt min.)? @ -no CT interpreted by me (1pt min.)? @ -no U/S interpreted by me (1pt. min.)? @ -no What testing was considered but not performed? (CT, X-rays, U/S, labs)? Why? @ -no What meds were considered but not given? Why? @ -no Did you discuss the management of the patient with other professionals? @ -no Did you reconcile home meds? @ -yes Was smoking cessation discussed for >3mins.? @ -no Was critical care preformed (if so, how long)? @ -no Were there social determinants of health that impacted care today? How? (Homelessness, low income, unemployed, alcoholism, drug addiction, tr ansportation, low edu. Level, literacy, decrease access to med. care, long-term, rehab)? @ -no Was there de-escalation of care discussed even if they declined? (Discuss DNR or withdrawal of care, Hospice)? @ -no What co-morbidities impacted this encounter? (DM, HTN, Smoking, COPD, CAD, Cancer, CVA,, sleep apnea, morbid obesity) @ -no Was patient admitted / discharged? @ -dc Undiagnosed new problem with uncertain prognosis? @ -no Drug Therapy requiring intensive monitoring for toxicity (Heparin, Nitro, Insulin, Cardizem)? @ -no Were any procedures done? @ -no Diagnosis/symptom? @ -head laceration,fall Acute, or Chronic, or Acute on Chronic? @ -acute Uncomplicated (without systemic symptoms) or Complicated (systemic symptoms)? @ -uncomplicated Side effects of treatment? @ -no Exacerbation, Progression, or Severe Exacerbation] @ -no Poses a threat to life or bodily function? @ -no Reevaluation #5: 11/10/22 20:35 Differential Syncope: Valvular disease, hypertrophic cardiomyopathy, pulmonary embolism, tamponade, tachycardia, bradycardia, [place], hypovolemia, hemorrhage, dissection, anemia, intracranial hemorrhage, seizure, hypoglycemia, carbon monoxide poisoning, this is not meant to be an all-inclusive list.e EKG Findings - EKG Comments: EKG Findings:: EKG is sinus 85 ND 198 QRS 74 QTc 401 Medical Decision Making - Medical Decision Making This is a 67-year-old female DF for evaluation patient did fall down stairs today. History of MS and occasionally does get weak on her feet is at bedside providing and updating history patient is a poor strain patient does have laceration her head which she is refusing care of. Refusing lawrence. Patient is no acute findings here in the ER and can be discharged home - Lab Data Result diagrams: 11/10/22 12:39 11/10/22 12:39 Lab Results 11/10/22 11/10/22 11/10/22 Range/Units 12:39 12:39 12:39 WBC 10.1 (3.8-10.6) k/uL RBC 4.20 (3.80-5.40) m/uL Hgb 13.5 (11.4-16.0) gm/dL Hct 40.3 (34.0-46.0) % MCV 96.0 (80.0-100.0) fL MCH 32.3 (25.0-35.0) pg MCHC 33.6 (31.0-37.0) g/dL RDW 13.2 (11.5-15.5) % Plt Count 253 (150-450) k/uL MPV 8.1 Neutrophils % 83 % Lymphocytes % 8 % Monocytes % 5 % Eosinophils % 1 % Basophils % 0 % Neutrophils # 8.4 H (1.3-7.7) k/uL Lymphocytes # 0.9 L (1.0-4.8) k/uL Monocytes # 0.5 (0-1.0) k/uL Eosinophils # 0.1 (0-0.7) k/uL Basophils # 0.0 (0-0.2) k/uL PT 9.8 (9.0-12.0) sec INR 0.9 (<1.2) APTT 21.7 L (22.0-30.0) sec Sodium 140 (137-145) mmol/L Potassium 4.2 (3.5-5.1) mmol/L Chloride 106 (98-107) mmol/L Carbon Dioxide 29 (22-30) mmol/L Anion Gap 5 mmol/L BUN 18 H (7-17) mg/dL Creatinine 0.88 (0.52-1.04) mg/dL Est GFR (CKD-EPI)AfAm 79 (>60 ml/min/1.73 sqM) Est GFR (CKD-EPI)NonAf 69 (>60 ml/min/1.73 sqM) Glucose 106 H (74-99) mg/dL Plasma Lactic Acid Peng (0.7-2.0) mmol/L Calcium 8.8 (8.4-10.2) mg/dL Phosphorus 3.2 (2.5-4.5) mg/dL Magnesium 2.2 (1.6-2.3) mg/dL Total Bilirubin 0.3 (0.2-1.3) mg/dL AST 28 (14-36) U/L ALT 25 (4-34) U/L Alkaline Phosphatase 116 (38-126) U/L Troponin I (0.000-0.034) ng/mL NT-Pro-B Natriuret Pep pg/mL Total Protein 6.4 (6.3-8.2) g/dL Albumin 4.0 (3.5-5.0) g/dL 11/10/22 11/10/22 11/10/22 Range/Units 12:39 12:39 12:39 WBC (3.8-10.6) k/uL RBC (3.80-5.40) m/uL Hgb (11.4-16.0) gm/dL Hct (34.0-46.0) % MCV (80.0-100.0) fL MCH (25.0-35.0) pg MCHC (31.0-37.0) g/dL RDW (11.5-15.5) % Plt Count (150-450) k/uL MPV Neutrophils % % Lymphocytes % % Monocytes % % Eosinophils % % Basophils % % Neutrophils # (1.3-7.7) k/uL Lymphocytes # (1.0-4.8) k/uL Monocytes # (0-1.0) k/uL Eosinophils # (0-0.7) k/uL Basophils # (0-0.2) k/uL PT (9.0-12.0) sec INR (<1.2) APTT (22.0-30.0) sec Sodium (137-145) mmol/L Potassium (3.5-5.1) mmol/L Chloride (98-107) mmol/L Carbon Dioxide (22-30) mmol/L Anion Gap mmol/L BUN (7-17) mg/dL Creatinine (0.52-1.04) mg/dL Est GFR (CKD-EPI)AfAm (>60 ml/min/1.73 sqM) Est GFR (CKD-EPI)NonAf (>60 ml/min/1.73 sqM) Glucose (74-99) mg/dL Plasma Lactic Acid Peng 1.1 (0.7-2.0) mmol/L Calcium (8.4-10.2) mg/dL Phosphorus (2.5-4.5) mg/dL Magnesium (1.6-2.3) mg/dL Total Bilirubin (0.2-1.3) mg/dL AST (14-36) U/L ALT (4-34) U/L Alkaline Phosphatase (38-126) U/L Troponin I <0.012 (0.000-0.034) ng/mL NT-Pro-B Natriuret Pep 54 pg/mL Total Protein (6.3-8.2) g/dL Albumin (3.5-5.0) g/dL - Radiology Data Radiology results: report reviewed (CT chest negative for PE chest x-ray pelvis x-ray and CT brain C-spine negative for genetic injury), image reviewed Disposition Clinical Impression: Fall, Laceration of head, Multiple sclerosis, Hematoma of scalp, Syncope Disposition: HOME SELF-CARE Condition: Good Instructions (If sedation given, give patient instructions): Fall Prevention for Older Adults (ED), Head Injury (ED) Is patient prescribed a controlled substance at d/c from ED?: No Referrals: Georgi Hernandez DO [Primary Care Provider] - 1-2 days
[2022-11-10 12:59] LABS: Basophils % (A) 0 %; Eosinophils # (A) 0.1 k/uL (0-0.7); Eosinophils % (A) 1 %; HCT 40.3 % (34.0-46.0); HGB 13.5 gm/dL (11.4-16.0); Lymphocytes # (A) 0.9 k/uL (1.0-4.8); Lymphocytes % (A) 8 %; MCH 32.3 pg (25.0-35.0); MCHC 33.6 g/dL (31.0-37.0); Mean Platelet Volume 8.1; Monocytes # (A) 0.5 k/uL (0-1.0); Monocytes % (A) 5 %; Neutrophils # (A) 8.4 k/uL (1.3-7.7); Neutrophils % (A) 83 %; Platelet Count 253 k/uL (150-450); RDW 13.2 % (11.5-15.5); WBC 10.1 k/uL (3.8-10.6)
--- NOTE | 2022-11-10 13:13 | CT ---
EXAMINATION TYPE: CT brain diana miramontes con DATE OF EXAM: 11/10/2022 COMPARISON: 10/23/2021 HISTORY: fall CT DLP: 1439.[address] of the brain was performed. The ventricles, basal cisterns and sulci overlying the cerebral convexities demonstrate moderate enla rgement. There is no evidence for intracranial hemorrhage or sulcal effacement. There is decreased attenuatio n about the periventricular white matter and deep white matter of both cerebral hemispheres, compatib le with chronic small vessel ischemia. No mass effects are seen. If symptoms persist consider MRI. Osseous calvarium is intact. IMPRESSION: 1. Age related atrophic and chronic small vessel ischemic change without acute intracranial process seen at this time. CT Cervical Spine: Unenhanced CT of the cervical spine was performed with bone and soft tissue window settings submitted . Coronal and sagittal reconstruction is obtained. There is normal alignment and prevertebral soft tissues. No evidence for acute cervical fracture . Scattered degenerative disc disease and spondylosis. Biapical scarring. IMPRESSION: 1. No evidence for acute fracture or subluxation of the cervical spine.
[2022-11-10 13:15] LABS: Calcium 8.8 mg/dL (8.4-10.2); Magnesium 2.2 mg/dL (1.6-2.3); Phosphorus 3.2 mg/dL (2.5-4.5); Potassium 4.2 mmol/L (3.5-5.1); Total Bilirubin 0.3 mg/dL (0.2-1.3); Total Protein 6.4 g/dL (6.3-8.2)
[2022-11-10 13:23] LABS: INR 0.9 (<1.2); Prothrombin Time 9.8 sec (9.0-12.0)
[2022-11-10 14:05] LABS: Partial Thromboplastin Time 21.7 sec (22.0-30.0)
--- NOTE | 2022-11-10 14:23 | XR ---
EXAMINATION TYPE: XR chest 1V DATE OF EXAM: 11/10/2022 COMPARISON: 07/15/2022 HISTORY: Difficulty breathing TECHNIQUE: Single frontal view of the chest is obtained. FINDINGS: There is no focal air space opacity, pleural effusion, or pneumothorax seen. The cardiac silhouette size is within normal limits. The osseous structures are intact. Changes at the lung bas es with limited inspiration. Stable calcified granuloma left upper lobe. Arthropathy of the shoulders . IMPRESSION: 1. Linear changes most typical of atelectasis with no definite acute process. 2. Chronic calcified benign left upper lobe granuloma.
--- NOTE | 2022-11-10 14:26 | XR ---
EXAMINATION TYPE: XR pelvis AP view DATE OF EXAM: 11/10/2022 COMPARISON: NONE HISTORY: Pain The osseous structures are intact and the joint spaces are preserved. No acute fracture is seen. Vi sualized bowel gas pattern is nonspecific. Hypertrophic degenerative changes. Moderate arthropathy i s osteopenia. Calcification in the left lower pelvis likely vascular. IMPRESSION: 1. No acute fracture.
[2022-11-10 16:13] VITALS: BP 136/88; PULSE 96; RESP 18; TEMP 98.2
== END 2022-11-10 16:20 | disposition home or self-care (01) ==
LOC: EC 12:08
DX: S01.01XA Laceration without foreign body of scalp, initial encounter (principal); G35 Multiple sclerosis; Z79.82 Long term (current) use of aspirin; W10.9XXA Fall (on) (from) unspecified stairs and steps, initial encounter
CPT/HCPCS: 99285; 96360; 51702; 36415; 93005; 83880; 80053; 83605; 83735; 84100; 84484; 85025; 85610; 85730; 72170; 71045; 72125; 70450; L0120

== ENCOUNTER 2023-04-01 06:51 | Inpatient (IN) | payer MEDICARE ==
[2023-04-01] MEDS ORDERED: SODIUM CHLORIDE 0.9% 500 ML 500 ML IV STA (07:07)
--- NOTE | 2023-04-01 07:16 | ED ---
General Adult HPI - General Chief complaint: Syncope Stated complaint: Fall Time Seen by Provider: 04/01/23 06:55 Source: patient, EMS, RN notes reviewed Mode of arrival: EMS Limitations: physical limitation - History of Present Illness Initial comments: This a 67-year-old female presents emergency Department via EMS with chief complaint of generalized weakness. Patient has a history of MS states that she's having a missed exacerbation. She states she's been feeling very dizzy, near syncopal. This is her typical symptoms when she has exacerbation. She's had MS for over 20 years. Patient sees neurologist out of [place]. Patient denies any chest pain or palpitations states that she's very dizzy, very weak the point where she's been falling she was laying on the ground for over 3 hours unable to get up EMS was called at that point. - Related Data Home Medications Medication Instructions Recorded Confirmed Dalfampridine [Dalfampridine ER] 10 mg PO BID 07/28/19 11/10/22 Aspirin EC [Ecotrin Low Dose] 81 mg PO DAILY 10/23/21 11/10/22 Ofatumumab [Kesimpta Pen] 20 mg SQ QMONTHLY 10/23/21 11/10/22 Mirabegron [Myrbetriq] 50 mg PO DAILY 07/15/22 11/10/22 Allergies Allergy/AdvReac Type Severity Reaction Status Date / Time No Known Allergies Allergy Verified 04/01/23 06:56 Review of Systems ROS Statement: Those systems with pertinent positive or pertinent negative responses have been documented in the HPI. ROS Other: All systems not noted in ROS Statement are negative. Past Medical History Past Medical History: Memory Impairment Additional Past Medical History / Comment(s): MULTIPLE SCLEROSIS History of Any Multi-Drug Resistant Organisms: None Reported Past Surgical History: Hysterectomy, Tonsillectomy Past Anesthesia/Blood Transfusion Reactions: No Reported Reaction Past Psychological History: No Psychological Hx Reported Smoking Status: Never smoker Past Alcohol Use History: None Reported Past Drug Use History: None Reported - Past Family History Mother Family Medical History: Cancer Additional Family Medical History / Comment(s): HODGKINS LYMPHOMA Father Family Medical History: Myocardial Infarction ([place]) General Exam Limitations: no limitations General appearance: alert, in no apparent distress Head exam: Present: atraumatic, normocephalic, normal inspection Eye exam: Present: normal appearance, PERRL, EOMI. Absent: scleral icterus, conjunctival injection, periorbital swelling ENT exam: Present: normal exam, normal oropharynx, mucous membranes moist Neck exam: Present: normal inspection, full ROM. Absent: tenderness, meningismus, lymphadenopathy Respiratory exam: Present: normal lung sounds bilaterally. Absent: respiratory distress, wheezes, rales, rhonchi, stridor Cardiovascular Exam: Present: regular rate, normal rhythm, normal heart sounds. Absent: systolic murmur, diastolic murmur, rubs, gallop, clicks Neurological exam: Present: alert, oriented X3, CN II-XII intact, reflexes normal. Absent: motor sensory deficit Skin exam: Present: warm, dry, intact, normal color. Absent: rash Course Vital Signs 04/01/23 04/01/23 06:51 07:30 Temperature 98.7 F Pulse Rate 85 80 Respiratory 18 13 Rate Blood Pressure 131/70 141/79 O2 Sat by Pulse 97 96 Oximetry Medical Decision Making - Lab Data Result diagrams: 04/01/23 07:22 04/01/23 07:22 Lab Results 04/01/23 04/01/23 04/01/23 Range/Units 07:22 07:22 07:22 WBC 7.4 (3.8-10.6) k/uL RBC 4.38 (3.80-5.40) m/uL Hgb 13.8 (11.4-16.0) gm/dL Hct 42.4 (34.0-46.0) % MCV 96.8 (80.0-100.0) fL MCH 31.4 (25.0-35.0) pg MCHC 32.5 (31.0-37.0) g/dL RDW 13.0 (11.5-15.5) % Plt Count 197 (150-450) k/uL MPV 8.3 Neutrophils % 85 % Lymphocytes % 5 % Monocytes % 8 % Eosinophils % 1 % Basophils % 1 % Neutrophils # 6.3 (1.3-7.7) k/uL Lymphocytes # 0.4 L (1.0-4.8) k/uL Monocytes # 0.6 (0-1.0) k/uL Eosinophils # 0.0 (0-0.7) k/uL Basophils # 0.0 (0-0.2) k/uL PT 10.0 (9.0-12.0) sec INR 0.9 (<1.2) APTT 23.0 (22.0-30.0) sec Sodium 138 (137-145) mmol/L Potassium 4.2 (3.5-5.1) mmol/L Chloride 105 (98-107) mmol/L Carbon Dioxide 28 (22-30) mmol/L Anion Gap 5 mmol/L BUN 13 (7-17) mg/dL Creatinine 0.95 (0.52-1.04) mg/dL Est GFR (CKD-EPI)AfAm 72 (>60 ml/min/1.73 sqM) Est GFR (CKD-EPI)NonAf 63 (>60 ml/min/1.73 sqM) Glucose 104 H (74-99) mg/dL Calcium 9.1 (8.4-10.2) mg/dL Magnesium 2.1 (1.6-2.3) mg/dL Total Bilirubin 0.5 (0.2-1.3) mg/dL AST 26 (14-36) U/L ALT 18 (4-34) U/L Alkaline Phosphatase 124 (38-126) U/L Creatine Kinase 215 H (30-135) U/L Troponin I (0.000-0.034) ng/mL Total Protein 6.7 (6.3-8.2) g/dL Albumin 4.1 (3.5-5.0) g/dL 04/01/23 Range/Units 07:22 WBC (3.8-10.6) k/uL RBC (3.80-5.40) m/uL Hgb (11.4-16.0) gm/dL Hct (34.0-46.0) % MCV (80.0-100.0) fL MCH (25.0-35.0) pg MCHC (31.0-37.0) g/dL RDW (11.5-15.5) % Plt Count (150-450) k/uL MPV Neutrophils % % Lymphocytes % % Monocytes % % Eosinophils % % Basophils % % Neutrophils # (1.3-7.7) k/uL Lymphocytes # (1.0-4.8) k/uL Monocytes # (0-1.0) k/uL Eosinophils # (0-0.7) k/uL Basophils # (0-0.2) k/uL PT (9.0-12.0) sec INR (<1.2) APTT (22.0-30.0) sec Sodium (137-145) mmol/L Potassium (3.5-5.1) mmol/L Chloride (98-107) mmol/L Carbon Dioxide (22-30) mmol/L Anion Gap mmol/L BUN (7-17) mg/dL Creatinine (0.52-1.04) mg/dL Est GFR (CKD-EPI)AfAm (>60 ml/min/1.73 sqM) Est GFR (CKD-EPI)NonAf (>60 ml/min/1.73 sqM) Glucose (74-99) mg/dL Calcium (8.4-10.2) mg/dL Magnesium (1.6-2.3) mg/dL Total Bilirubin (0.2-1.3) mg/dL AST (14-36) U/L ALT (4-34) U/L Alkaline Phosphatase (38-126) U/L Creatine Kinase (30-135) U/L Troponin I <0.012 (0.000-0.034) ng/mL Total Protein (6.3-8.2) g/dL Albumin (3.5-5.0) g/dL - EKG Data -: EKG Interpreted by Wy EKG Comments: EKG performed at 17:31 sinus rhythm with first-degree block rate of 78 LA 214 QRS 78 QT/QTC 367/400 Disposition Clinical Impression: Exacerbation of multiple sclerosis, Weakness Disposition: ADMITTED IP TO THIS [facility] Condition: Fair Referrals: Georgi Hernandez DO [Primary Care Provider] - 1-2 days Time of Disposition: 08:25
[2023-04-01 07:52] LABS: Basophils % (A) 1 %; Eosinophils % (A) 1 %; HCT 42.4 % (34.0-46.0); HGB 13.8 gm/dL (11.4-16.0); Lymphocytes # (A) 0.4 k/uL (1.0-4.8); Lymphocytes % (A) 5 %; MCH 31.4 pg (25.0-35.0); MCHC 32.5 g/dL (31.0-37.0); MCV 96.8 fL (80.0-100.0); Mean Platelet Volume 8.3; Monocytes # (A) 0.6 k/uL (0-1.0); Monocytes % (A) 8 %; Neutrophils # (A) 6.3 k/uL (1.3-7.7); Neutrophils % (A) 85 %; Platelet Count 197 k/uL (150-450); RBC 4.38 m/uL (3.80-5.40); WBC 7.4 k/uL (3.8-10.6)
[2023-04-01 08:00] LABS: INR 0.9 (<1.2)
--- NOTE | 2023-04-01 08:00 | XR ---
EXAMINATION TYPE: XR chest 2V DATE OF EXAM: 04/01/2023 COMPARISON: 11/10/2022 HISTORY: Chest pain TECHNIQUE: Frontal and lateral views of the chest are obtained. FINDINGS: There is no focal air space opacity. No evidence for pneumothorax. No pleural effusion. The cardiac silhouette size is within normal limits. The osseous structures are grossly intact. IMPRESSION: 1. No acute cardiopulmonary process.
[2023-04-01 08:14] LABS: ALT 18 U/L (4-34); AST 26 U/L (14-36); African American GFR (CKD) 72 (>60 ml/min/1.73 sqM); Albumin 4.1 g/dL (3.5-5.0); Alkaline Phosphatase 124 U/L (38-126); Anion Gap 5 mmol/L; Blood Urea Nitrogen 13 mg/dL (7-17); Calcium 9.1 mg/dL (8.4-10.2); Carbon Dioxide 28 mmol/L (22-30); Chloride 105 mmol/L (98-107); Creatine Kinase 215 U/L (30-135); Glucose 104 mg/dL (74-99); Magnesium 2.1 mg/dL (1.6-2.3); Non-African American GFR(CKD) 63 (>60 ml/min/1.73 sqM); Potassium 4.2 mmol/L (3.5-5.1); Sodium 138 mmol/L (137-145); Total Bilirubin 0.5 mg/dL (0.2-1.3); Total Protein 6.7 g/dL (6.3-8.2)
[2023-04-01] MEDS ORDERED: methylPREDNISolone SOD SUCCIN 1,000 MG in SODIUM CHLORIDE 0.9% 250 ML IVPB STA (08:44)
[2023-04-01] MEDS ORDERED: ACETAMINOPHEN TAB 325 MG TAB PO PRN (08:49)
[2023-04-01] MEDS ORDERED: NALOXONE 0.4 MG/ML 1 ML VIAL IV PRN (08:49)
--- NOTE | 2023-04-01 15:21 | P.HPIM ---
History of Present Illness H&P Date: 04/01/23 Patient is a 67-year-old female with history of MS presenting with generalized lower extremity weakness over the last 2 days. She claims that normally during her and this exacerbation she gets lower extremity weakness as well as increased imbalance. She denies any lightheadedness. She denies any chest pain, abdominal pain, nausea, vomiting, urinary or bowel complaints. She denies any vision loss. She is currently on MS therapy, but has not seen her neurologist in the last few months. She denies any recent fevers or chills. In the ED, vital signs unremarkable. Laboratory workup unremarkable except for CK of 215. Patient given IV Solu-Medrol milligrams daily, also given some IV fluids. Neurology consulted. Patient admitted for MS exacerbation. Pertinent positives and negatives as discussed in HPI, a complete review of systems was performed and all other systems are negative. Patient seen and examined at bedside. Vital signs reviewed General: nontoxic, no distress, appears at stated age Derm: warm, dry Head: atraumatic, normocephalic, symmetric Eyes: EOMI, no lid lag, anicteric sclera, pupils equal round reactive to light ENT: Nose and ears atraumatic Neck: No thyromegaly, supple Mouth: no lip lesion, mucus membranes moist Cardiovascular: S1S2 reg, no murmur, no edema Lungs: clear to auscultation bilateral, no rhonchi, no rales, no wheeze, no acce ssory muscle use Abdominal: soft, nontender to palpation, no guarding, no appreciable organomegaly Ext: 4/5 strength in right lower extremity, does have dysarthria Neuro: CN II-XII grossly intact Psych: Alert, oriented, appropriate affect Assessment/Plan: MS exacerbation Overactive bladder -Patient given steroids in the ED -Neurology consulted -will likely benefit from MRI -PT/OT The patient is admitted with an anticipated greater than 2 midnight stay as inpatient status for evaluation of MS exacerbation. Surrogate decision-maker: CODE STATUS: Full code DVT prophylaxis: Subcu heparin Anticipated discharge date: Pending clinical course Anticipated discharge place: Pending clinical course A total of 55 minutes was spent on the care of this complex patient more than 50% of the time was spent in counseling and care coordination. Past Medical History Past Medical History: Memory Impairment Additional Past Medical History / Comment(s): MULTIPLE SCLEROSIS History of Any Multi-Drug Resistant Organisms: None Reported Past Surgical History: Hysterectomy, Tonsillectomy Past Anesthesia/Blood Transfusion Reactions: No Reported Reaction Past Psychological History: No Psychological Hx Reported Smoking Status: Never smoker Past Alcohol Use History: None Reported Past Drug Use History: None Reported - Past Family History Mother Family Medical History: Cancer Additional Family Medical History / Comment(s): HODGKINS LYMPHOMA Father Family Medical History: Myocardial Infarction ([place]) Medications and Allergies Home Medications Medication Instructions Recorded Confirmed Type Dalfampridine [Dalfampridine ER] 10 mg PO BID 07/28/19 04/01/23 History Aspirin EC [Ecotrin Low Dose] 81 mg PO DAILY 10/23/21 04/01/23 History Mirabegron [Myrbetriq] 50 mg PO DAILY 07/15/22 04/01/23 History Allergies Allergy/AdvReac Type Severity Reaction Status Date / Time No Known Allergies Allergy Verified 04/01/23 09:08 Physical Exam Vitals: Vital Signs Temp Pulse Resp BP Pulse Ox 04/01/23 15:00 80 26 H 130/81 95 04/01/23 14:00 81 18 136/77 95 04/01/23 12:00 86 17 147/73 95 04/01/23 11:00 77 18 141/74 96 04/01/23 10:00 80 24 157/78 99 04/01/23 09:00 83 19 145/92 99 04/01/23 08:30 80 19 148/80 96 04/01/23 08:00 77 14 136/71 98 04/01/23 07:30 80 13 141/79 96 04/01/23 06:51 98.7 F 85 18 131/70 97 Intake and Output 04/01/23 04/01/23 04/01/23 06:59 14:59 22:59 Other: Weight 74.843 kg Results CBC & Chem 7: 04/01/23 07:22 04/01/23 07:22 Labs: Abnormal Lab Results - Last 24 Hours (Table) 04/01/23 04/01/23 Range/Units 07:22 07:22 Lymphocytes # 0.4 L (1.0-4.8) k/uL Glucose 104 H (74-99) mg/dL Creatine Kinase 215 H (30-135) U/L
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
[2023-04-01] MEDS: PANTOPRAZOLE 40 MG TABLET PO SCH (18:04)
[2023-04-02] MEDS: PATIENT'S OWN (Mirabegron [Myrbetriq] 50 MG Tab.Er.24h) PO SCH (08:36)
[2023-04-02] MEDS: ASPIRIN 81 MG PO SCH (08:49)
[2023-04-02] MEDS: PANTOPRAZOLE 40 MG TABLET PO SCH ×2 (08:49→18:06)
[2023-04-02] MEDS: methylPREDNISolone SOD SUCCIN 500 MG in SODIUM CHLORIDE 0.9% 100 ML IVPB SCH ×2 (08:49→20:33)
--- NOTE | 2023-04-02 13:50 | P.PN ---
Subjective Progress Note Date: 04/02/23 Hospital Course: 67-year-old female with history of MS presenting with generalized lower extremity weakness over the last 2 days. In the ED, vital signs unremarkable. Laboratory workup unremarkable except for CK of 215. Patient given IV Solu- Medrol milligrams daily, also given some IV fluids. Neurology consulted. Patient admitted for possible MS exacerbation. Currently on IV Solu-Medrol. MRI brain pending. Subjective: Patient seen and examined at bedside. No acute events overnight. He claims that lower extremity weakness is improving. Pertinent positives and negatives as discussed above, a complete review of systems was performed and all other systems are negative. Vitals Signs Reviewed. General: nontoxic, no distress, appears at stated age Derm: warm, dry Head: atraumatic, normocephalic, symmetric Eyes: EOMI, no lid lag, anicteric sclera, pupils equal round reactive to light ENT: Nose and ears atraumatic Neck: No thyromegaly, supple Mouth: no lip lesion, mucus membranes moist Cardiovascular: S1S2 reg, no murmur, no edema Lungs: clear to auscultation bilateral, no rhonchi, no rales, no wheeze, no accessory muscle use Abdominal: soft, nontender to palpation, no guarding, no appreciable organomegaly Ext: 4/5 strength in right lower extremity, does have dysarthria Neuro: CN II-XII grossly intact Psych: Alert, oriented, appropriate affect Data Reviewed Today: Pertinent Labs: No new labs Imaging: No new imaging Assessment and Plan: Possible MS exacerbation Lower extremity weakness Dysarthria Overactive bladder -Discussed management with neurology, lower extremity weakness and dysarthria is chronic -MRI brain pending -Continue IV steroids -PT/OT DVT ppx: SQ heparin Code status: Full code Anticipated discharge place: PendingClinical course Anticipated discharge time: Pending clinical course Objective - Vital Signs Vital signs: Vital Signs Temp 98.2 F 04/02/23 07:02 Pulse 80 04/02/23 07:02 Resp 17 04/02/23 07:02 BP 133/70 04/02/23 07:02 Pulse Ox 96 04/02/23 08:45 FiO2 Intake & Output 04/01/23 04/02/23 04/02/23 18:59 06:59 18:59 Weight 74.843 kg Other: Voiding Method Toilet # Voids 2 - Labs CBC & Chem 7: 04/01/23 07:22 04/01/23 07:22
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
--- NOTE | 2023-04-02 17:12 | MR ---
EXAMINATION TYPE: MR brain wo/w con DATE OF EXAM: 04/02/2023 4:57 PM COMPARISON: 08/08/2021 and 12/28/2018 HISTORY: MS exacerbation, falls CONTRAST: Patient received 7.5 mL intravenous Gadavist gadolinium contrast. Multiplanar and multispin-echo imaging of the brain was performed . Pre and post contrast enhanced i mages are obtained. The ventricles, basal cisterns and sulci overlying the cerebral convexities are at least moderately e nlarged. There is evidence of moderate confluence periventricular and deep white matter increased signal on th e T2 FLAIR data set. Direct comparison with prior study is difficult given lack of T2 FLAIR data set on previous examination however there is no change relative to prior study of 12/28/2018. No acute anderson ma is seen on diffusion weighted imaging. There is no evidence for midline shift or mass effect. Acute intracranial hemorrhage or extra-axial collection is not evident. No enhancing lesions are seen. Mild chronic sinusitis. Mastoid air cells are well-aerated. IMPRESSION: 1. There is at least moderate ventricular enlargement somewhat out of proportion to the sulci overlyi ng the cerebral convexities. Normal pressure hydrocephalus is not excluded. 2. Moderate confluent periventricular and deep white matter increased signal on T2 weighted FLAIR jorge alberto a set may be on the basis of patient's known multiple sclerosis which appears stable relative to the prior study.
[2023-04-02] MEDS: HEPARIN SODIUM,PORCINE 5,000 UNIT/ML 1 ML VIAL SQ SCH (18:06)
[2023-04-03] MEDS: HEPARIN SODIUM,PORCINE 5,000 UNIT/ML 1 ML VIAL SQ SCH ×3 (00:07→16:55)
[2023-04-03] MEDS: PANTOPRAZOLE 40 MG TABLET PO SCH ×2 (07:27→16:55)
[2023-04-03] MEDS: PATIENT'S OWN (Mirabegron [Myrbetriq] 50 MG Tab.Er.24h) PO SCH (09:10)
[2023-04-03] MEDS: ASPIRIN 81 MG PO SCH (09:10)
[2023-04-03] MEDS: methylPREDNISolone SOD SUCCIN 500 MG in SODIUM CHLORIDE 0.9% 100 ML IVPB SCH (09:10)
[2023-04-03] MEDS ORDERED: methylPREDNISolone SOD SUCCIN 500 MG in SODIUM CHLORIDE 0.9% 100 ML IVPB STA (10:57)
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
--- NOTE | 2023-04-03 14:42 | P.DS ---
Providers Date of admission: 04/01/23 08:45 Expected date of discharge: 04/03/23 Attending physician: Isreal Brantley MD Consults: 04/01/23 08:49 Consult Physician Urgent Consulting Provider: Manish Leal Consult Reason/Comments: MS exacerbation Do you want consulting provider notified?: Yes [facility] Course: Discharge Diagnosis: Relapsing remitting MS. Patient was admitted for concerns of possible MS exacerbation, neurologist evaluating patient received IV steroids. Neurology reporting likely pseudo-exacerbation. Neurologist recommending no further need for IV steroids and no need for steroid taper upon discharge. Patient to follow up outpatient with neurologist. Bilateral lower extremity weakness, resolved Dysarthria, chronic Overactive bladder, chronic Hospital Course: Patient is a very pleasant 67-year-old female with a past medical history of MS. She presented to the emergency department on 04/01/23 with a chief complaint of generalized lower extremity weakness over the last 2 days. In the ED, vital signs unremarkable. Laboratory workup was unremarkable with the exception of elevated CK of 215. Patient given IV Solu-Medrol, also given some IV fluids. Neurology consulted. Patient admitted for possible MS exacerbation and started on IV Solu-Medrol. MRI brain showing moderate ventricular enlargement reported to be somewhat out of proportion to this DAY overlying the cerebral convexities, normal pressure hydrocephalus is not excluded and moderate confluent periventricular and deep white matter increased signal on T2 waited FLAIR secondary to patient's known multiple sclerosis and per radiology report appears stable relative to the prior study completed 08/08/21. Patient had full resolution of previous reported bilateral lower extremity weakness. Patient seen and examined at bedside. She reports feeling great this morning and reports full resolution of previous reported bilateral lower extremity weakness. Vital signs reviewed and stable. General: Nontoxic, no distress and appears stated age. Derm: Skin warm and dry, normal coloration for ethnicity. Head: Atraumatic, normocephalic and symmetric. Eyes: EOMs intact, no lid lag, and anicteric sclera Mouth: no lip lesions, mucus membranes moist Cardiovascular: regular rate and rhythm with normal S1S2, no murmur, positive posterior tibial pulses bilaterally, and cap refill < 2 seconds. Lungs: Respirations even, regular, and unlabored on room air. Lungs CTA bilaterally, no rhonchi, no rales, no wheezing, and no accessory muscle usage. Abdominal: soft, nontender to palpation, no guarding, no appreciable organomegaly Ext: ROM intact. No gross muscle atrophy, no edema, no contractures Neuro: Speech clear, face symmetrical and CN II-XII grossly intact with no noted focal neuro deficits Psych: Alert and oriented to person, place, time, and situation. Appropriate and pleasant affect. A total of 33 minutes of time were spent preparing this complex discharge summary. Pt was discharged on 04/03/23 at 2:18 PM. Patient was seen independently by Nurse Practitioner. This document was prepared using [employer] dictation software. Please allow for errors in shaper setter while rare they do occur. Patient Condition at Discharge: Stable Plan - Discharge Summary Discharge Rx Participant: No New Discharge Prescriptions: No Action Dalfampridine [Dalfampridine ER] 10 mg PO BID Aspirin EC [Ecotrin Low Dose] 81 mg PO DAILY Mirabegron [Myrbetriq] 50 mg PO DAILY Discharge Medication List Dalfampridine [Dalfampridine ER] 10 mg PO BID 07/28/19 [History] Aspirin EC [Ecotrin Low Dose] 81 mg PO DAILY 10/23/21 [History] Mirabegron [Myrbetriq] 50 mg PO DAILY 07/15/22 [History] Follow up Appointment(s)/Referral(s): Dhruv Ackerman MD [REFERRING] - 1 Week Georgi Hernandez DO [Primary Care Provider] - 1-2 days Activity/Diet/Wound Care/Special Instructions: Activity: As tolerated. Take breaks as needed. Diet: Heart healthy and carb consistent diet. Avoid salts, or foods with hidden salts such as canned or boxed foods and frozen dinners. Extra salt makes your heart work harder and traps the fluid in your body for longer. Special Instructions: Take all of your medications as directed and remember to keep all of your doctor's appointments and follow-up as needed. You will need to follow up outpatient with your neurologist, Dr. Ackerman at [facility] Thank you for allowing us to participate in your care, it was truly a pleasure having you for our patient!!! Discharge Disposition: HOME SELF-CARE
[2023-04-03 14:48] VITALS: BP 137/94; PULSE 76; RESP 18; TEMP 97.7
== END 2023-04-03 18:37 | disposition home or self-care (01) | DRG 59 ==
LOC: EC 06:51 → 4SSUR 08:45
PROVIDERS: ADMIT Student in an Organized Health Care Education/Training Program; ATTEND Student in an Organized Health Care Education/Training Program
DX: G35 Multiple sclerosis (principal); G91.2 (Idiopathic) normal pressure hydrocephalus; G93.89 Other specified disorders of brain; I44.0 Atrioventricular block, first degree; N32.81 Overactive bladder; R47.1 Dysarthria and anarthria; R29.6 Repeated falls; R74.8 Abnormal levels of other serum enzymes; R41.3 Other amnesia; Z79.899 Other long term (current) drug therapy; Z79.82 Long term (current) use of aspirin; Z91.81 History of falling
CPT/HCPCS: 36415; 70553; 71046; 80053; 82550; 83735; 84484; 85025; 85610; 85730; 93005; 94760; 96361; 96365; 96366; 99285

== ENCOUNTER 2024-04-25 14:29 | Observation (INO) | payer MEDICARE ==
--- NOTE | 2024-04-25 15:13 | ED ---
Dizziness HPI - General Source: patient, EMS Mode of arrival: EMS Limitations: no limitations <Blanquita De Jesus - Last Filed: 04/25/24 15:10> - General Source: patient, EMS Mode of arrival: EMS Limitations: no limitations <Jose Alfredo Ivey - Last Filed: 04/25/24 17:24> - General Chief Complaint: Dizziness Stated Complaint: Fall Time Seen by Provider: 04/25/24 15:10 - History of Present Illness Initial Comments: Barrie quinonezs is a 68-year-old female with history of multiple sclerosis presenting for episode of dizziness at noon today. States she started to suddenly feel off balance and fell, however denies hitting her head or losing consciousness. States this feels similar to previous MS flareups. She is currently asymptomatic. Denies chest pain, shortness of breath, fever, chills, vision changes. (Blanquita De Jesus) Patient is a 68-year-old female presenting emergency department with weakness. Patient has a history of similar symptoms at least a half a dozen times previo usly associated with MS. Symptoms started fairly quick today. Patient was feeling weak this morning and it progressed. Patient feels lightheaded. Patient feels weak all over and did not fall down, no injury. Patient was unable to get up despite help with for 1 hour. Patient is no longer able to ambulate at this time. With previous episodes patient has been admitted with IV steroids. (Jose Alfredo Ivey) - Related Data Home Medications Medication Instructions Recorded Confirmed Dalfampridine [Dalfampridine ER] 10 mg PO BID 07/28/19 04/01/23 Aspirin EC [Ecotrin Low Dose] 81 mg PO DAILY 10/23/21 04/01/23 Mirabegron [Myrbetriq] 50 mg PO DAILY 07/15/22 04/01/23 Allergies Allergy/AdvReac Type Severity Reaction Status Date / Time No Known Allergies Allergy Verified 04/25/24 14:45 Review of Systems ROS Other: All systems not noted in ROS Statement are negative. <Blanquita De Jesus - Last Filed: 04/25/24 15:10> ROS Other: All systems not noted in ROS Statement are negative. Constitutional: Denies: fever Eyes: Denies: eye pain ENT: Denies: ear pain Respiratory: Denies: dyspnea Cardiovascular: Denies: chest pain Endocrine: Reports: fatigue Gastrointestinal: Denies: abdominal pain Neurological: Reports: as per HPI, weakness, confusion (Patient states this does occur with her flare ) <Jose Alfredo Ivey - Last Filed: 04/25/24 17:24> ROS Statement: Those systems with pertinent positive or pertinent negative responses have been documented in the HPI. Past Medical History Past Medical History: Memory Impairment Additional Past Medical History / Comment(s): MULTIPLE SCLEROSIS History of Any Multi-Drug Resistant Organisms: None Reported Past Surgical History: Hysterectomy, Tonsillectomy Past Anesthesia/Blood Transfusion Reactions: No Reported Reaction Past Psychological History: No Psychological Hx Reported Smoking Status: Never smoker Past Alcohol Use History: None Reported Past Drug Use History: None Reported - Past Family History Mother Family Medical History: Cancer Additional Family Medical History / Comment(s): HODGKINS LYMPHOMA Father Family Medical History: Myocardial Infarction (CO) <De JesusBlanquita - Last Filed: 04/25/24 15:10> General Exam Limitations: no limitations <De JesusBlanquita - Last Filed: 04/25/24 15:10> Limitations: no limitations General appearance: alert, in no apparent distress Head exam: Present: normocephalic Eye exam: Present: normal appearance, PERRL, EOMI ENT exam: Present: normal oropharynx Neck exam: Present: normal inspection. Absent: tenderness, meningismus Respiratory exam: Present: normal lung sounds bilaterally Cardiovascular Exam: Present: regular rate, normal rhythm GI/Abdominal exam: Present: soft. Absent: tenderness Extremities exam: Present: normal inspection Neurological exam: Present: alert, CN II-XII intact Expanded Neurological exam: Present: protecting the airway Patient oriented to: Present: person, place. Absent: time Cranial nerves: EOM's Intact: Normal Motor strength exam: RUE: 5, LUE: 5, RLE: 3, LLE: 3 Eye Response: (4) open spontaneously Motor Response: (6) obeys commands Verbal Response: (4) confused conversation Psychiatric exam: Present: normal affect, normal mood Skin exam: Present: normal color <Jose Alfredo Ivey - Last Filed: 04/25/24 17:24> - General Exam Comments Initial Comments: Visual Physical Exam Vital signs reviewed General: Well-appearing, nontoxic, no acute distress. Head: Normocephalic, atraumatic Eyes: PERRLA, EOMI ENT: Airway patent Chest: Nonlabored breathing Skin: No visual rash, normal skin tone Neuro: Alert and oriented 3 Musculoskeletal: No gross abnormalities (Blanquita De Jesus) Course Vital Signs 04/25/24 04/25/24 14:41 15:44 Temperature 97.8 F Pulse Rate 86 Respiratory 18 Rate O2 Sat by Pulse 97 96 Oximetry EKG Findings - EKG Results: EKG: interpreted by ERMD (Low QRS voltage.), sinus rhythm, normal axis, normal ST/T EKG shows: tachycardia <Jose Alfredo Ivey - Last Filed: 04/25/24 17:24> Medical Decision Making <Blanquita De Jesus - Last Filed: 04/25/24 15:10> <Jose Alfredo Ivey - Last Filed: 04/25/24 17:24> - Medical Decision Making I completed the quick note portion of this chart signed Blanquita De Jesus PA-C (Blanquita De Jesus) Was pt. sent in by a medical professional or institution (, PA, JUNIOR SALES REPRESENTATIVE, urgent care, hospital, or senior care...) When possible be specific @ -No Did you speak to anyone other than the patient for history (EMS, parent, family, police, friend...)? What history was obtained from this source @ - is present and helps provide history including patient's history of MS and weakness today Did you review nursing and triage notes (agree or disagree)? Why? @ -I reviewed and agree with nursing and triage notes Were old charts reviewed (outside hosp., previous admission, EMS record, old EKG, old radiological studies, urgent care reports/EKG's, senior care records)? Report findings @ -Multiple previous imaging reports reviewed Differential Diagnosis (chest pain, altered mental status, abdominal pain women, abdominal pain men, vaginal bleeding, weakness, fever, dyspnea, syncope, headache, dizziness, GI bleed, back pain, seizure, CVA, palpatations, mental health, musculoskeletal)? @ -Differential Weakness: Hypoglycemia, shock, sepsis, hyponatremia, anemia, infection, CO, ETOH, adverse medicine reaction, overdose, stroke, this is not meant to be an all-inclusive list. EKG interpreted by me (3pts min.). @ -As above X-rays interpreted by me (1pt min.). @ -None done CT interpreted by me (1pt min.). @ -None done U/S interpreted by me (1pt. min.). @ -None done What testing was considered but not performed or refused? (CT, X-rays, U/S, labs)? Why? @ -Considered imaging of the brain however patient has had multiple previous studies with similar symptoms What meds were considered but not given or refused? Why? @ -None Did you discuss the management of the patient with other professionals (professionals i.e. Dr., PA, JUNIOR SALES REPRESENTATIVE, lab, RT, psych nurse, social research assistant, toggle press folder and feeder, teacher, chief program officer, pillowcase maker)? Give summary @ -Case was discussed with Dr. Woo who will admit covering Dr. Betancur me Was smoking cessation discussed for >3mins.? @ -No Was critical care preformed (if so, how long)? @ -No Were there social determinants of health that impacted care today? How? (Homelessness, low income, unemployed, alcoholism, drug addiction, transportation, low edu. Level, literacy, decrease access to med. care, skilled nursing, rehab)? @ -No Was there de-escalation of care discussed even if they declined (Discuss DNR or withdrawal of care, Hospice)? DNR status @ -No What co-morbidities impacted this encounter? (DM, HTN, Smoking, COPD, CAD, Cancer, CVA, ARF, Chemo, Hep., AIDS, mental health diagnosis, sleep apnea, m orbid obesity)? @ -History of MS with similar symptoms Was patient admitted / discharged? Hospital course, mention meds given and route, prescriptions, significant lab abnormalities, going to OR and other pertinent info. @ -Patient presents with weakness and inability to walk consistent with her history of multiple sclerosis. Patient will be admitted with IV steroids and neuro consult. Admission orders written. Undiagnosed new problem with uncertain prognosis? @ -No Drug Therapy requiring intensive monitoring for toxicity (Heparin, Nitro, Insulin, Cardizem)? @ -No Were any procedures done? @ -No Diagnosis/symptom? @ -Multiple sclerosis exacerbation Acute, or Chronic, or Acute on Chronic? @ -Acute Uncomplicated (without systemic symptoms) or Complicated (systemic symptoms)? @ -Default Side effects of treatment? @ -No Exacerbation, Progression, or Severe Exacerbation? @ -Exacerbation Poses a threat to life or bodily function? How? (Chest pain, [place], CO, pneumonia, PE, COPD, DKA, ARF, appy, cholecystitis, CVA, Diverticulitis, Homicidal, Suicidal, threat to staff... and all critical care pts) @ -No (Jose Alfredo Ivey) Disposition <Blanquita De Jesus - Last Filed: 04/25/24 15:10> Is patient prescribed a controlled substance at d/c from ED?: No Time of Disposition: 17:24 <Jose Alfredo Ivey - Last Filed: 04/25/24 17:24> Clinical Impression: Exacerbation of multiple sclerosis Disposition: ADMITTED IP TO THIS HOSP Referrals: None,Stated [REFERRING] - 1-2 days
[2024-04-25] MEDS ORDERED: NALOXONE 0.4 MG/ML 1 ML VIAL IV PRN (17:24)
[2024-04-25] MEDS: SODIUM CHLORIDE 0.9% 1,000 ML IV STA (18:00)
[2024-04-25] MEDS: methylPREDNISolone SOD SUCCIN 500 MG in SODIUM CHLORIDE 0.9% 100 ML IVPB STA (18:00)
[2024-04-25 18:09] LABS: Basophils % (A) 0 %; Eosinophils # (A) 0.1 k/uL (0-0.7); Eosinophils % (A) 1 %; HCT 44.1 % (34.0-46.0); HGB 14.8 gm/dL (11.4-16.0); Lymphocytes # (A) 0.7 k/uL (1.0-4.8); Lymphocytes % (A) 5 %; MCH 32.1 pg (25.0-35.0); MCHC 33.6 g/dL (31.0-37.0); MCV 95.4 fL (80.0-100.0); Mean Platelet Volume 8.3; Monocytes # (A) 0.6 k/uL (0-1.0); Monocytes % (A) 5 %; Neutrophils # (A) 11.3 k/uL (1.3-7.7); Neutrophils % (A) 88 %; Platelet Count 240 k/uL (150-450); RBC 4.62 m/uL (3.80-5.40); RDW 13.1 % (11.5-15.5); WBC 12.7 k/uL (3.8-10.6)
[2024-04-25 18:12] LABS: ALT 14 U/L (4-34); AST 27 U/L (14-36); African American GFR (CKD) 76 (>60 ml/min/1.73 sqM); Albumin 4.4 g/dL (3.5-5.0); Alkaline Phosphatase 117 U/L (38-126); Anion Gap 6 mmol/L; Blood Urea Nitrogen 15 mg/dL (7-17); Calcium 9.2 mg/dL (8.4-10.2); Carbon Dioxide 28 mmol/L (22-30); Chloride 106 mmol/L (98-107); Glucose 103 mg/dL (74-99); Non-African American GFR(CKD) 66 (>60 ml/min/1.73 sqM); Sodium 140 mmol/L (137-145); Total Bilirubin 0.7 mg/dL (0.2-1.3); Total Protein 7.1 g/dL (6.3-8.2)
--- NOTE | 2024-04-25 19:09 | P.HPIM ---
History of Present Illness H&P Date: 04/25/24 68 year old F with Multiple Sclerosis presents to the ED for syncopal episode. Patient reports she was brushing her teeth this morning when she started to feel dizziness described as the room spinning sensation. This was followed by a syncopal episode. Patient reports it took a couple of minutes to regain consciousness. She felt slightly confused afterwards but recovered quickly. No bladder or bowel incontinence. She denies any chest pain, shortness of breath or palpitations. Unsure if there was head trauma or any witnessed. In the ED she underwent extensive evaluation. T 97.8F, HR 86, RR 18, 97% on RA. CBC, CMP significant for WBC 12.7, glu 103. Lactic acid 1.3. EKG showed sinus tachycardia with first degree AV block. Patient was given SoluMedrol 500 mg IV and admitted for further workup and management. General: non toxic, no distress, appears at stated age Derm: warm, dry Head: atraumatic, normocephalic, symmetric Eyes: EOMI, no lid lag, anicteric sclera Mouth: no lip lesion, mucus membranes moist Cardiovascular: S1S2 reg, no murmur Lungs: CTA bilateral, no rhonchi, no rales, no accessory muscle use Ext: no gross muscle atrophy, no edema, no contractures Neuro: no focal neuro deficits Psych: Alert, oriented, appropriate affect Based on my assessment of this patient, this patient meets a high complexity level of care. Vertigo and Syncope: Likely related to MS. Patient with no current weakness or FND. Status post SoluMedrol 500 mg IV in the ED. Obtain Orthostats and Echo. Obtain CT brain and C-spine. Telemetry monitoring. Fall precautions. PT and OT consult. Consult Neurology. Leukocytosis: Unknown etiology. No signs of active infection. Does not meet sepsis criteria. Monitor fever profile. CODE STATUS: FULL CODE DVT Prophylaxis: Lovenox SQ GI Prophylaxis: Designated medical POA if patient is not able to make medical decisions for themselves: I have reviewed the following loss control consultant notes: ED note I have reviewed the results of the following tests: As above I have ordered the following tests: As above I have discussed the care of this patient with the following independent historian: I have independently interpreted the following test below: EKG I have discussed the management of this patient with the following physician: Past Medical History Past Medical History: Memory Impairment Additional Past Medical History / Comment(s): MULTIPLE SCLEROSIS History of Any Multi-Drug Resistant Organisms: None Reported Past Surgical History: Hysterectomy, Tonsillectomy Past Anesthesia/Blood Transfusion Reactions: No Reported Reaction Past Psychological History: No Psychological Hx Reported Smoking Status: Never smoker Past Alcohol Use History: None Reported Past Drug Use History: None Reported - Past Family History Mother Family Medical History: Cancer Additional Family Medical History / Comment(s): HODGKINS LYMPHOMA Father Family Medical History: Myocardial Infarction ([place]) Medications and Allergies Home Medications Medication Instructions Recorded Confirmed Type Dalfampridine [Dalfampridine ER] 10 mg PO BID 07/28/19 04/25/24 History Aspirin EC [Ecotrin Low Dose] 81 mg PO DAILY 10/23/21 04/25/24 History Mirabegron [Myrbetriq] 50 mg PO DAILY 07/15/22 04/25/24 History Ofatumumab [Kesimpta Pen] 20 mg SQ Q56D 04/25/24 04/25/24 History Allergies Allergy/AdvReac Type Severity Reaction Status Date / Time No Known Allergies Allergy Verified 04/25/24 14:45 Physical Exam Vitals: Vital Signs Temp Pulse Resp Pulse Ox 04/25/24 15:44 96 04/25/24 14:41 97.8 F 86 18 97 Intake and Output 04/25/24 04/25/24 04/25/24 06:59 14:59 22:59 Other: Weight 79.379 kg Results CBC & Chem 7: 04/25/24 15:07 04/25/24 15:07 Labs: Abnormal Lab Results - Last 24 Hours (Table) 04/25/24 04/25/24 Range/Units 15:07 15:07 WBC 12.7 H (3.8-10.6) k/uL Neutrophils # 11.3 H (1.3-7.7) k/uL Lymphocytes # 0.7 L (1.0-4.8) k/uL Glucose 103 H (74-99) mg/dL
[2024-04-25] MEDS: NON FORMULARY DRUG (Dalfampridine [Dalfampridine Er] 10 MG Tab.Er.12h) PO SCH (20:29)
[2024-04-26 02:02] LABS: Amorphous Sediment,Urine Occasional /hpf; Appearance,Urine Turbid (Clear); Bacteria,Urine Rare /hpf; Bilirubin,Urine Negative (Negative); Blood,Urine Trace (Negative); Color,Urine Light Yellow; Glucose,Urine (UA) 2+ (Negative); Ketones,Urine Trace (Negative); Leukocyte Esterase,Urine Moderate (Negative); Nitrite,Urine Negative (Negative); PH, Urine 7.5 (5.0-8.0); Protein,Urine Trace (Negative); RBC,Urine 6 /hpf (0-5); Specific Gravity,Urine 1.026 (1.001-1.035); Squamous Epithelial Cell,Urine 22 /hpf (0-4); Triple Phosphate Crystal,Urine Rare /hpf; Urobilinogen,Urine <2.0 mg/dL (<2.0); WBC,Urine 34 /hpf (0-5)
--- NOTE | 2024-04-26 06:00 | CT ---
EXAMINATION TYPE: CT brain cspine wo con CT DLP: 1337.5 mGycm, Automated exposure control for dose reduction was used. DATE OF EXAM: 04/25/2024 7:32 PM COMPARISON: MR brain 04/02/2023, CT brain C-spine 11/10/2022. CLINICAL INDICATION:Female, 68 years old with history of syncope; MS. TECHNIQUE: Brain: Multiple axial CT images of the brain were obtained without IV contrast. Cspine: Axial CT images from the skull base to the inferior aspect of T2 we obtained without intraven ous contrast. Coronal and sagittal reformatted images were also reviewed. FINDINGS: Motion degraded examination. Brain: Extra-axial spaces: No abnormal extra-axial fluid collections. Ventricular system: Moderate ventricular enlargement of both lateral ventricles and third ventricle. This is out of proportion to sulci prominence. Cerebral parenchyma: No acute intraparenchymal hemorrhage or mass effect. The murphy-white junction is well differentiated. Scattered hypoattenuating areas are seen within the periventricular white matte r. Cerebellum: Unremarkable. Mass effect: No evidence of midline shift. Intracranial vasculature: Atherosclerotic calcifications of the intracranial vessels. Soft tissues: Normal. Calvarium/osseous structures: No depressed skull fracture. Paranasal sinuses and mastoid air cells: Clear. Visualized orbits: Orbital contents are intact. Cervical spine: Fracture: None. Osseous structures: Multilevel degenerative disc disease changes with endplate spurring and disc oste ophyte complex's. Vertebral alignment: No spondylolisthesis. Mild reversal of the normal cervical lordosis. Spinal canal/Neural Foramina: Disc osteophyte complexes at C4-C5 and C5-C6 with at least mild spinal canal stenosis. No evidence for significant neural foraminal stenosis. Neck soft tissues: Prevertebral soft tissues are within normal limits. Other: The airway is patent. The lung apices are clear. IMPRESSION: 1. No acute intracranial process. 2. Similar moderate ventricular enlargement which is seems somewhat out of proportion to cerebral at rophy. Normal pressure hydrocephalus is not excluded. 3. Similar nonspecific moderate confluent periventricular and subcortical white matter changes which may relate to patient's known multiple sclerosis versus other etiologies such as chronic small vesse l ischemic disease versus transependymal flow. 4. No evidence of cervical spine fracture. 5. Mild multilevel degenerative disc disease. [facility], , 04/26/2024 5:57 AM
[2024-04-26 08:12] VITALS: RESP 16
[2024-04-26] MEDS: ASPIRIN 81 MG PO SCH (10:38)
[2024-04-26] MEDS: NON FORMULARY DRUG (Mirabegron [Myrbetriq] 50 MG Tab.Er.24h) PO SCH (10:39)
[2024-04-26] MEDS: PANTOPRAZOLE 40 MG/10 ML VIAL IV SCH (10:39)
[2024-04-26] MEDS: ENOXAPARIN 40 MG/0.4 ML SYRINGE SQ SCH (10:39)
--- NOTE | 2024-04-26 12:29 | CA ---
Transthoracic Echo Report Name: Andree Oneal Age: 68 Gender: F : 1955 Exam Date: 04/26/2024 09:43 Exam Location: [facility] Ht (in): 62 Wt (lb): 175 Ordering Physician: Oumou Johnston MD Attending/Referring Phys: [employer] Supervisor Felecia Rice RDCS Procedure CPT: Indications: Syncope Cardiac Hx: Technical Quality: Good Contrast 1: Total Dose (mL): Contrast 2: Total Dose (mL): MEASUREMENTS (Male / Female) Normal Values 2D ECHO LV Diastolic Diameter PLAX 3.5 cm 4.2 - 5.9 / 3.9 - 5.3 cm LV Systolic Diameter PLAX 2.3 cm IVS Diastolic Thickness 1.1 cm 0.6 - 1.0 / 0.6 - 0.9 cm LVPW Diastolic Thickness 1.1 cm 0.6 - 1.0 / 0.6 - 0.9 cm LV Relative Wall Thickness 0.6 RV Internal Dim ED PLAX 2.8 cm LA Systolic Diameter LX 2.2 cm 3.0 - 4.0 / 2.7 - 3.8 cm LV Diastolic Volume MOD 4C 61.7 cm??? LV Systolic Volume MOD 4C 25.1 cm??? LV Ejection Fraction MOD 4C 59.3 % LV Cardiac Index MOD 4C 1852.1 cm???/min???m??? LV Diastolic Length 4C 7.2 cm LV Systolic Length 4C 5.9 cm LV Diastolic Volume MOD 2C 60.0 cm??? LV Systolic Volume MOD 2C 21.8 cm??? LV Ejection Fraction MOD 2C 63.7 % LV Cardiac Index MOD 2C 1934.0 cm???/min???m??? LV Diastolic Length 2C 6.6 cm LV Systolic Length 2C 5.4 cm LA Volume 31.0 cm??? 18 - 58 / 22 - 52 cm??? LA Volume Index 16.4 cm???/m??? 16 - 28 cm???/m??? M-MODE Aortic Root Diameter MM 2.6 cm AV Cusp Separation MM 2.1 cm DOPPLER AV Peak Velocity 122.4 cm/s AV Peak Gradient 6.0 mmHg MV Area PHT 3.7 cm??? Mitral E Point Velocity 98.7 cm/s Mitral A Point Velocity 135.9 cm/s Mitral E to A Ratio 0.7 MV Deceleration Time 206.8 ms FINDINGS Left Ventricle Left ventricular ejection fraction is estimated at 55-60 %. Small left ventricular cavity.Mildly increased left ventricular wall thickness. . Normal left ventricular wall motion. Right Ventricle Normal right ventricular size and function. Unable to estimate the right ventricular systolic pressure. Right Atrium Normal right atrial size. No right atrial thrombus or mass seen. Left Atrium Normal left atrial size. No left atrial thrombus or mass present. Mitral Valve Structurally normal mitral valve. No mitral stenosis, or prolapse.mild mitral regurgitation. Aortic Valve Trileaflet aortic valve. No aortic valve stenosis or regurgitation. Tricuspid Valve Structurally normal tricuspid valve. No tricuspid stenosis, regurgitation or prolapse. Pulmonic Valve Structurally normal pulmonic valve. No pulmonic regurgitation. Pericardium No pericardial or pleural effusion. Aorta Normal size aortic root and proximal ascending aorta. CONCLUSIONS 1. Normal left ventricle size and systolic function 2. Mild mitral regurgitation Previewed by: Dr. Calin Armijo MD (Electronically Signed) Final Date: 26 April 2024 12:28
--- NOTE | 2024-04-26 12:50 | P.CNNES ---
History of Present Illness Consult date: 04/26/24 Requesting physician: Jose Alfredo Ivey Reason for Consult: Multiple Sclerosis History of Present Illness: This is a 68 year-old woman with history of Relapsing remitting Multiple Sclerosis, Memory loss due to MS, lower extremity weakness (predominately right lower) and uses walker present emergency department because of dizziness that resulted in a fall. Patient is accompanied by her who is at bedside. Seems yesterday in the morning the patient felt dizzy when she was getting up and attempting to brush her teeth in the morning and she felt the room spinning. As a result her legs became weak and she fell but denies any loss of consciousness or passing out. Denies any nausea vomiting. Denies any ringing in the ears or hearing loss. According to the she was doing great a few days ago. She saw her neurologist a few days ago was notified that she was doing well according to the . At baseline she uses a walker and has right lower extremity weakness. Denies any dysuria, increased frequency of urination. today she is drastically better she feels she is back to baseline. It seems that she had one-time steroid and her UA yesterday seems probable acute urinary tract infection. stated that when she has multiple sclerosis she needs at least 3 days of steroids and she needs therapy afterwards and this is unusual for her to have exacerbation and to be this better. She follows up with Dr. Ackerman for her multiple sclerosis out of [facility] in [place], [place]. Patient is on Kesimpta 20mg every 2 months and is on Dalfampridine ER 10mg bid. Some of the work-up during this hospital visit consisted of: Serum glucose is 103, plasma lactic acid venous 1.3. Sodium, BUN/creatinine AST ALT calcium is within normal limits. CT of the head is reported as no acute intracranial process. Similar moderate ventricular enlargement with seems somewhat a proportion to the cerebral atrophy. Normal pressure hydrocephalus is not excluded. Similar nonspecific moderate confluent periventricular and subcortical white matter changes which may be related to the patient known multiple sclerosis versus other etiologies such as chronic small vessel ischemic disease versus transependymal flow. I personally reviewed the CT and agree there is no acute or subacute process CT cervical spine is reported as no evidence of cervical spine fracture. Mild multilevel degenerative disc disease. 2D echo was reported as normal left ventricular size and systolic function. Mild mitral regurgitation. Urinalysis is leukocyte Estrace is moderate, urine white blood cells 34 and urine bacteria is rare. Review of Systems The positive and negative as per HPI. Past Medical History Past Medical History: Memory Impairment Additional Past Medical History / Comment(s): MULTIPLE SCLEROSIS History of Any Multi-Drug Resistant Organisms: None Reported Past Surgical History: Hysterectomy, Tonsillectomy Past Anesthesia/Blood Transfusion Reactions: No Reported Reaction Past Psychological History: No Psychological Hx Reported Smoking Status: Never smoker Past Alcohol Use History: None Reported Past Drug Use History: None Reported - Past Family History Mother Family Medical History: Cancer Additional Family Medical History / Comment(s): HODGKINS LYMPHOMA Father Family Medical History: Myocardial Infarction (NC) Medications and Allergies Home Medications Medication Instructions Recorded Confirmed Type Dalfampridine [Dalfampridine ER] 10 mg PO BID 07/28/19 04/25/24 History Aspirin EC [Ecotrin Low Dose] 81 mg PO DAILY 10/23/21 04/25/24 History Mirabegron [Myrbetriq] 50 mg PO DAILY 07/15/22 04/25/24 History Ofatumumab [Kesimpta Pen] 20 mg SQ Q56D 04/25/24 04/25/24 History Allergies Allergy/AdvReac Type Severity Reaction Status Date / Time No Known Allergies Allergy Verified 04/25/24 14:45 Physical Examination - Vital Signs Vital Signs: Vital Signs Temp Pulse Pulse Resp BP BP Pulse Ox 04/26/24 07:29 98 F 93 16 179/98 93 L 04/26/24 06:13 98.2 F 93 18 165/97 97 04/26/24 04:13 98 19 168/88 94 L 04/26/24 02:10 95 18 163/92 04/26/24 01:45 96 16 98 04/26/24 00:58 86 16 166/88 95 04/26/24 00:00 96 16 97 04/25/24 23:00 98.0 F 93 20 179/96 98 04/25/24 21:30 87 18 154/86 95 04/25/24 20:00 103 H 20 149/76 96 04/25/24 17:00 67 16 140/83 96 04/25/24 15:44 96 04/25/24 14:41 97.8 F 86 18 97 Intake and Output 04/25/24 04/26/24 04/26/24 22:59 06:59 14:59 Other: # Voids 1 Weight 79.379 kg GENERAL: The patient is lying in bed and is not in acute distress. NEUROLOGICAL: Higher mental function: The patient is awake, alert, oriented to self, stated she was in the hospital but stated was [place]. She correctly stated the current year but stated month is May. Patient is following simple commands. No aphasia and no neglect. Cranial nerves: The pupils are round, equal and reactive to light and accommodation. Visual moura are full to confrontation throughout. Extraocular movement is intact no nystagmus is noted. Facial sensation is normal to touch throughout. The facial strength is normal throughout. Hearing is mild to moderate decreased bilaterally to hand rub. Tongue is midline and moved [id number] without any difficulty. No dysarthria is noted. Shoulder shrug is normal bilaterally. Motor: The strength is 5 over 5 throughout uppers. The lowers: Right lower is 4- while the left lower is 4+ to 5-. Normal tone and bulk. Cerebellum: Normal finger to nose bilaterally. Sensation: Sensation is normal to touch throughout. Reflexes (right/left):2+ throughout. Plantars are mute bilaterally. Results - Laboratory Findings CBC and BMP: 04/25/24 15:07 04/25/24 15:07 Abnormal Lab Findings: Abnormal Labs 04/25/24 04/25/24 04/26/24 15:07 15:07 01:00 WBC 12.7 H Neutrophils # 11.3 H Lymphocytes # 0.7 L Glucose 103 H Urine Appearance Turbid H Urine Protein Trace H Urine Glucose (UA) 2+ H Urine Ketones Trace H Urine Blood Trace H Ur Leukocyte Esterase Moderate H Urine RBC 6 H Urine WBC 34 H Ur Squamous Epith Cells 22 H Triple Phos Crystals Rare H Amorphous Sediment Occasional H Urine Bacteria Rare H Assessment and Plan Assessment: This is a 68-year-old woman with history of multiple sclerosis who recently saw her neurologist and was told she is doing well who yesterday in the morning had episode of dizziness and felt the room spinning and felt her legs were weak as a result fell but no head trauma. Today she is drastically better. She had one- time 500 mg of IV Solu-Medrol yesterday in the ED and the UA seems possible underlying urinary tract infection. Acute dizziness with episode of lower extremity weakness: Possible pseudoexacerbation due to acute UTI and possible peripheral vertigo---today she is back to baseline. Possible acute UTI History of Relapsing Remitting Multiple Sclerosis Cognitive impairement due to her MS Right lower extremity weakness due to MS and uses walker at baseline History of recurrent UTI Plan: Spoke with the and he stated that he wants to hold off any imaging such as MRI of the brain and cervical spine since he feels she is drastically better and this is not typical multiple sclerosis in which she needs at least 3 days of steroids and after that she needs therapy but feels today she is drastically better compared to yesterday's presentation. Because the does not want her to be on IV steroids at this time since she is doing drastically better and wants to rule out any acute urinary tract infection. Urine culture is ordered and is pending Physical therapy and Occupational Therapy is consulted Will defer the rest of the medical management to primary and other specialist Upon discharge recommend the patient to follow-up with her neurologist, Dr. Ackerman as an outpatient and the patient's saw him recently a few days ago. Plan discussed with the patient, her was at bedside and her nurse. Thank you for the consultation. Time with Patient: Greater than 30
--- NOTE | 2024-04-26 13:30 | P.PN ---
Subjective Progress Note Date: 04/26/24 Hospital course: Patient is a pleasant 68-year-old female with a past medical history of multiple sclerosis resulting in mild memory loss and lower extremity weakness (worse on right). She presented to the emergency department on 04/25/2024 with a chief complaint of dizziness followed by worsening lower extremity weakness and syncopal episode. Upon arrival to our facility, patient underwent evaluation in the emergency department. Vital signs upon arrival show T 97.8F, HR 86, RR 18, 97% on RA. Labs were completed and reviewed. CBC, CMP significant for WBC 12.7, glu 103. Lactic acid 1.3. EKG showed sinus tachycardia at 101 bpm with first degree AV block with VA interval of 214 ms. Patient was given SoluMedrol 500 mg IV for possible MS exacerbation and admitted for further workup and management. CT head and cervical spine was completed. CT head negative for acute intracranial process showing similar moderate ventricular enlargement which is reported to seem somewhat out of proportion to cerebral atrophy and unable to exclude normal pressure hydrocephalus, similar nonspecific moderate confluent periventricular and subcortical white matter changes. CT cervical spine negative for cervical spine fracture showing mild multilevel degenerative disc disease. Echocardiogram completed showing a preserved EF of 55 to 60% with mild mitral regurgitation. Physical exam: Patient was seen and fully evaluated at bedside this morning. She reports just feeling tired states she did not sleep at all last night. She does report dizziness and weakness has improved since receiving steroids yesterday in the e mergency department. She currently denies having any other complaints, questions, needs, or concerns at this time. Vital signs reviewed and stable. General: Nontoxic, no distress and appears stated age. Derm: Skin warm and dry, normal coloration for ethnicity. Head: Atraumatic, normocephalic and symmetric. Eyes: EOM's intact, no lid lag, and anicteric sclera Mouth: no lip lesions, mucus membranes moist Cardiovascular: regular rate and rhythm with normal S1S2, no murmur, positive posterior tibial pulses bilaterally, and cap refill < 2 seconds. Lungs: Respirations even, regular, and unlabored on room air. Lungs CTA bilaterally, no rhonchi, no rales, no wheezing, and no accessory muscle usage. Abdominal: soft, nontender to palpation, no guarding, no appreciable organomegaly Ext: ROM intact. No gross muscle atrophy, no edema, no contractures Neuro: Speech clear, face symmetrical and CN II-XII grossly intact with no noted focal neuro deficits Psych: Alert and oriented to person, place, time, and situation. Appropriate and pleasant affect. Assessment and Plan of Care: Transient episode of dizziness with worsening lower extremity weakness Syncope Multiple Sclerosis with memory deficits and lower extremity weakness Lower extremity weakness, secondary to above -Syncopal episode and dizziness likely related to MS. -Patient received Solu-Medrol 500 mg IVPB in the emergency department. Will hold off on additional steroids at this time pending recommendations from neurology. -CT head and cervical spine was completed this morning and reviewed. CT head negative for acute intracranial process showing similar moderate ventricular enlargement which is reported to seem somewhat out of proportion to cerebral atrophy and unable to exclude normal pressure hydrocephalus, similar nonspecific moderate confluent periventricular and subcortical white matter changes. CT cervical spine negative for cervical spine fracture showing mild multilevel degenerative disc disease. -Echocardiogram completed showing a preserved EF of 55 to 60% with mild mitral regurgitation. -Patient to continue with Kesimpta 20 mg subcutaneously every 56 days and dalfampridine 10 mg twice daily. -Neurology following, appreciate recommendations -PT/OT following. -Continue fall precautions. -Telemetry monitoring. -Orthostatic vitals to be obtained. Leukocytosis -Suspect reactive. No signs of active infection. Does not meet sepsis criteria. Monitor for any fevers or newly reported symptoms. -Urinalysis was a contaminated specimen with 22 squamous epithelial cells, not concerning for UTI. Data and imaging reviewed: -CT head and cervical spine was completed this morning and reviewed. CT head negative for acute intracranial process showing similar moderate ventricular enlargement which is reported to seem somewhat out of proportion to cerebral atrophy and unable to exclude normal pressure hydrocephalus, similar nonspecific moderate confluent periventricular and subcortical white matter changes. CT cervical spine negative for cervical spine fracture showing mild multilevel degenerative disc disease. -Echocardiogram completed showing a preserved EF of 55 to 60% with mild mitral regurgitation. -Urinalysis was a contaminated specimen with 22 squamous epithelial cells, not concerning for UTI. -Vital signs reviewed. Blood pressure 165/97, heart rate 93, respiratory rate 18, temp 98.2 F, and SpO2 of 97% on room air. CODE STATUS: FULL CODE DVT Prophylaxis: Lovenox SQ Anticipated discharge date: Likely in the next [address]: Home Patient was seen independently by Nurse Pracitioner. This document was prepared using Dragon dictation software. Please allow for errors in playground worker, while rare they do occur. Patient was seen independently by Surya Munoz NP. I agree with the assessment and plan as above. Objective - Vital Signs Vital signs: Vital Signs Temp 98 F 04/26/24 07:29 Pulse 93 04/26/24 07:29 Resp 16 04/26/24 07:29 BP 179/98 04/26/24 07:29 Pulse Ox 93 L 04/26/24 07:29 FiO2 Intake & Output 04/25/24 04/26/24 04/26/24 18:59 06:59 18:59 Weight 79.379 kg Other: # Voids 1 - Labs CBC & Chem 7: 04/25/24 15:07 04/25/24 15:07 Labs: Abnormal Lab Results - Last 24 Hours (Table) 04/25/24 04/25/24 04/26/24 Range/Units 15:07 15:07 01:00 WBC 12.7 H (3.8-10.6) k/uL Neutrophils # 11.3 H (1.3-7.7) k/uL Lymphocytes # 0.7 L (1.0-4.8) k/uL Glucose 103 H (74-99) mg/dL Urine Appearance Turbid H (Clear) Urine Protein Trace H (Negative) Urine Glucose (UA) 2+ H (Negative) Urine Ketones Trace H (Negative) Urine Blood Trace H (Negative) Ur Leukocyte Esterase Moderate H (Negative) Urine RBC 6 H (0-5) /hpf Urine WBC 34 H (0-5) /hpf Ur Squamous Epith Cells 22 H (0-4) /hpf Triple Phos Crystals Rare H (None) /hpf Amorphous Sediment Occasional H (None) /hpf Urine Bacteria Rare H (None) /hpf
[2024-04-26] MEDS: amLODIPine 5 MG TAB PO SCH (15:52)
[2024-04-27 01:44] VITALS: PULSE 94
[2024-04-27 07:33] VITALS: BP 125/76; TEMP 98
--- NOTE | 2024-04-27 17:34 | P.DS ---
Providers Date of admission: 04/25/24 17:25 Expected date of discharge: 04/27/24 Attending physician: David Merino MD Consults: 04/25/24 17:24 Consult Physician Routine Consulting Provider: Manish Leal Consult Reason/Comments: MS Do you want consulting provider notified?: Yes [facility] Course: Discharge Diagnosis: Transient episode of dizziness with worsening lower extremity weakness. Syncope. Multiple Sclerosis with memory deficits and lower extremity weakness. Lower extremity weakness, secondary to above. Leukocytosis, likely reactive. No signs of infection at this time. Abnormal UA. Patient asymptomatic of urinary complaints. Urinalysis was a contaminated specimen with 22 squamous epithelial cells, not concerning for UTI. Hospital course: Patient is a pleasant 68-year-old female with a past medical history of multiple sclerosis resulting in mild memory loss and lower extremity weakness (worse on right). She presented to the emergency department on 04/25/2024 with a chief complaint of dizziness followed by worsening lower extremity weakness and syncopal episode. Upon arrival to our facility, patient underwent evaluation in the emergency department. Vital signs upon arrival show T 97.8F, HR 86, RR 18, 97% on RA. Labs were completed and reviewed. CBC, CMP significant for WBC 12.7, glu 103. Lactic acid 1.3. EKG showed sinus tachycardia at 101 bpm with first degree AV block with MN interval of 214 ms. Patient was given SoluMedrol 500 mg IV for possible MS exacerbation and admitted for further workup and ma nagement. CT head and cervical spine was completed. CT head negative for acute intracranial process showing similar moderate ventricular enlargement which is reported to seem somewhat out of proportion to cerebral atrophy and unable to exclude normal pressure hydrocephalus, similar nonspecific moderate confluent periventricular and subcortical white matter changes. CT cervical spine negative for cervical spine fracture showing mild multilevel degenerative disc disease. Echocardiogram completed showing a preserved EF of 55 to 60% with mild mitral regurgitation. Urinalysis was a contaminated specimen with 22 squamous epithelial cells, not concerning for UTI. Patient reports full resolution of previous reported symptoms with dizziness and worsening lower extremity weakness. She reports feeling back at baseline after single dose of IV steroids administered in the emergency department. Patient denies having any other complaints at this time. She was evaluated by physical therapy recommending [facility] facility for rehab. Patient declines stating that she will not go to a rehab and once discharged home with her . Patient offered home care and also declined. Patient medically stable at this time and cleared for discharge home. Patient to follow-up outpatient with PCP in 3 days. Physical exam: Vital signs reviewed and stable. General: Nontoxic, no distress and appears stated age. Derm: Skin warm and dry, normal coloration for ethnicity. Head: Atraumatic, normocephalic and symmetric. Eyes: EOM's intact, no lid lag, and anicteric sclera Mouth: no lip lesions, mucus membranes moist Cardiovascular: regular rate and rhythm with normal S1S2, no murmur, positive posterior tibial pulses bilaterally, and cap refill < 2 seconds. Lungs: Respirations even, regular, and unlabored on room air. Lungs CTA bilaterally, no rhonchi, no rales, no wheezing, and no accessory muscle usage. Abdominal: soft, nontender to palpation, no guarding, no appreciable organomegaly Ext: No gross muscle atrophy, no edema, no contractures. Movement intact. Positive right foot drop, chronic Neuro: Speech clear, face symmetrical and CN II-XII grossly intact with no noted focal neuro deficits Psych: Alert and oriented to person, place, time, and situation. Appropriate and pleasant affect. A total of 35 minutes of time were spent preparing this complex discharge summary. Pt was discharged on 04/27/2024 at 10:23 AM. Patient was seen independently by Nurse Practitioner. This document was prepared using Squarespace dictation software. Please allow for errors in legal manager while rare they do occur. Patient was seen independently by Surya Munoz NP. I agree with the assessment and plan as above. Patient Condition at Discharge: Stable Plan - Discharge Summary New Discharge Prescriptions: New amLODIPine [Norvasc] 5 mg PO DAILY 30 Days #30 tab Continue Dalfampridine [Dalfampridine ER] 10 mg PO BID Aspirin EC [Ecotrin Low Dose] 81 mg PO DAILY Mirabegron [Myrbetriq] 50 mg PO DAILY Ofatumumab [Kesimpta Pen] 20 mg SQ Q56D Discharge Medication List Dalfampridine [Dalfampridine ER] 10 mg PO BID 07/28/19 [History] Aspirin EC [Ecotrin Low Dose] 81 mg PO DAILY 10/23/21 [History] Mirabegron [Myrbetriq] 50 mg PO DAILY 07/15/22 [History] Ofatumumab [Kesimpta Pen] 20 mg SQ Q56D 04/25/24 [History] amLODIPine [Norvasc] 5 mg PO DAILY 30 Days #30 tab 04/27/24 [Rx] Follow up Appointment(s)/Referral(s): Frank Curtis MD [REFERRING] - 05/01/24 9:30 am (appointment is to become established with a PCP and a post hospital follow up) Patient Instructions/Handouts: Amlodipine (By mouth), Heart Healthy Diet (DC), Basic Carbohydrate Counting (DC) Activity/Diet/Wound Care/Special Instructions: Activity: As tolerated. Take breaks as needed. Diet: Heart healthy and carb consistent diet. Avoid salts, or foods with hidden salts such as canned or boxed foods and frozen dinners. Extra salt makes your heart work harder and traps the fluid in your body for longer. Special Instructions: Take all of your medications as directed and remember to keep all of your doctor's appointments and follow-up as needed. Recommend outpatient follow-up with your neurologist as well as following up with Dr. Curtis to establish care with a Primary Care Physician and post- hospitalization follow-up. Thank you for allowing us to participate in your care, it was truly a pleasure having you for our patient!!! Discharge Disposition: HOME SELF-CARE
--- NOTE | 2024-04-27 17:44 | P.PN ---
Subjective Progress Note Date: 04/27/24 I am following up with the patient and she is accompanied with her . Patient feels back to baseline and the feels she is doing drastically better compared to her initial presentation. I spoke with the primary team and it seems that she had a contaminant urinalysis. Patient does not complain of any urine issues that is new therefore the primary team declined to repeat a repeat urine analysis. Objective - Vital Signs Vital signs: Vital Signs Temp 98.0 F 04/27/24 06:50 Pulse 94 04/27/24 09:18 Resp 16 04/27/24 06:50 BP 125/76 04/27/24 09:18 Pulse Ox 95 04/27/24 01:43 FiO2 Intake & Output 04/26/24 04/27/24 04/27/24 18:59 06:59 18:59 Intake Total 118 Balance 118 Weight 79.379 kg Intake: Oral 118 Other: Voiding Method Toilet Bedside Commode Toilet Diaper # Voids 1 3 - Exam GENERAL: The patient is sitting in a recliner chair and is not in acute distress. NEUROLOGICAL: Higher mental function: The patient is awake, alert, oriented to self, stated she was in the hospital but stated was Miguel. She correctly stated the current year but stated month is May. Patient is following simple commands . No aphasia and no neglect. Cranial nerves: The pupils are round, equal and reactive to light and accommodation. Visual moura are full to confrontation throughout. Extraocular movement is intact no nystagmus is noted. Facial sensation is normal to touch throughout. The facial strength is normal throughout. Hearing is mild to moderate decreased bilaterally to hand rub. Tongue is midline and moved [id number] without any difficulty. No dysarthria is noted. Shoulder shrug is normal bilaterally. Motor: The strength is 5 over 5 throughout uppers. The lowers: Right lower is 4- while the left lower is 4+ to 5-. Normal tone and bulk. Cerebellum: Normal finger to nose bilaterally. Sensation: Sensation is normal to touch throughout. Reflexes (right/left):2+ throughout. Plantars are mute bilaterally. Some of the work-up during this hospital visit consisted of: Serum glucose is 103, plasma lactic acid venous 1.3. Sodium, BUN/creatinine AST ALT calcium is within normal limits. CT of the head is reported as no acute intracranial process. Similar moderate ventricular enlargement with seems somewhat a proportion to the cerebral atrophy. Normal pressure hydrocephalus is not excluded. Similar nonspecific moderate confluent periventricular and subcortical white matter changes which may be related to the patient known multiple sclerosis versus other etiologies such as chronic small vessel ischemic disease versus transependymal flow. I personally reviewed the CT and agree there is no acute or subacute process CT cervical spine is reported as no evidence of cervical spine fracture. Mild multilevel degenerative disc disease. 2D echo was reported as normal left ventricular size and systolic function. Mild mitral regurgitation. Urinalysis is leukocyte Estrace is moderate, urine white blood cells 34 and urine bacteria is rare. - Labs CBC & Chem 7: 04/25/24 15:07 04/25/24 15:07 Labs: Microbiology - Last 24 Hours (Table) 04/26/24 01:00 Urine Culture - Final Urine,Voided Assessment and Plan Assessment: This is a 68-year-old woman with history of multiple sclerosis who recently saw her neurologist and was told she is doing well who yesterday in the morning had episode of dizziness and felt the room spinning and felt her legs were weak as a result fell but no head trauma. Today she is drastically better. She had one- time 500 mg of IV Solu-Medrol yesterday in the ED and the UA seems possible underlying urinary tract infection. Acute dizziness with episode of lower extremity weakness: Possible pseudoexacerbation possible peripheral vertigo. Initial urine analysis is contaminant but has no urine complaints--Continues to be back to baseline. History of Relapsing Remitting Multiple Sclerosis Cognitive impairement due to her MS Right lower extremity weakness due to MS and uses walker at baseline History of recurrent UTI Plan: Spoke with the and he stated that he wants to hold off any imaging such as MRI of the brain and cervical spine since he feels she is drastically better and this is not typical multiple sclerosis in which she needs at least 3 days of steroids and after that she needs therapy but feels today she is drastically better compared to yesterday's presentation. Per hold off steroid since better. Primary does not want to pursue with repeat Urine analysis since no urine co mplaints. Physical therapy and Occupational Therapy is consulted Will defer the rest of the medical management to primary and other specialist Upon discharge recommend the patient to follow-up with her neurologist, Dr. Ackerman as an outpatient and the patient's saw him recently a few days ago. Plan discussed with the patient, her was at bedside and primary team N.P. Time with Patient: Less than 30
== END 2024-04-27 12:38 | disposition home or self-care (01) ==
LOC: EC 14:29 → 6NMEDSUR 17:25 → 5NMEDONC 04-26 02:10
PROVIDERS: ADMIT Internal Medicine; ATTEND Internal Medicine
DX: R42 Dizziness and giddiness (principal); R55 Syncope and collapse; G35 Multiple sclerosis; D72.829 Elevated white blood cell count, unspecified; R82.90 Unspecified abnormal findings in urine; I44.0 Atrioventricular block, first degree; F06.70 Mild neurocognitive disorder due to known physiological condition without behavioral disturbance; Z79.82 Long term (current) use of aspirin; Z79.899 Other long term (current) drug therapy; Z87.440 Personal history of urinary (tract) infections
CPT/HCPCS: 96376; 96361 ×3; 96372 ×2; 96375; 96365; 96366; 99285; 93005; 93306; 97162; 80053; 83605; 83735; 85025; 81001; 87086; 72125; 70450; G0378 ×3; J1650 ×2; J2919; J2470 ×2

== ENCOUNTER 2025-01-10 20:05 | Emergency (ER) | payer MEDICARE ==
[2025-01-10 20:10] VITALS: BP 145/76; PULSE 59; RESP 18
[2025-01-10 20:11] VITALS: TEMP 98.1
--- NOTE | 2025-01-10 20:34 | ED ---
General Adult HPI - General Source: patient, family, EMS, RN notes reviewed Mode of arrival: EMS Limitations: no limitations <Kenna Nielsen - Last Filed: 01/10/25 20:30> - General Source: patient, EMS, RN notes reviewed, old records reviewed Mode of arrival: EMS Limitations: no limitations - History of Present Illness -: days(s) (1.5) Location: chest, back, abdomen, buttocks, left Radiation: flank Severity scale (1-10): 7 Quality: sharp Consistency: intermittent Improves with: none Worsens with: immobilization Treatments Prior to Arrival: none <Dejuan Queen - Last Filed: 01/11/25 04:22> - General Chief complaint: Abdominal Pain Stated complaint: LEFT SIDE PAIN Time Seen by Provider: 01/10/25 20:15 - History of Present Illness Initial comments: Quick [id number] female with history of dementia presenting to the emergency department via EMS with for concerns of left-sided pain that started today. states that patient did fall a few days ago onto her left side. Patient is complaining of pain to the left hip and lower pelvis/back. Denies urinary or bowel habit changes. Patient also has a history of MS and will occasionally use a walker. (Kenna Nielsen) This is a 69-year-old female to the ER for evaluation of left-sided flank pain back pain worse with movement worse with touch she believes she did have an injury about a day and a half ago without any significant trauma. No fevers cough congestion no dysuria or diarrhea (Dejuan Queen) - Related Data Home Medications Medication Instructions Recorded Confirmed Dalfampridine [Dalfampridine ER] 10 mg PO BID 07/28/19 04/25/24 Aspirin EC [Ecotrin Low Dose] 81 mg PO DAILY 10/23/21 04/25/24 Mirabegron [Myrbetriq] 50 mg PO DAILY 07/15/22 04/25/24 Ofatumumab [Kesimpta Pen] 20 mg SQ Q56D 04/25/24 04/25/24 Previous Rx's Medication Instructions Recorded amLODIPine [Norvasc] 5 mg PO DAILY 30 Days #30 tab 04/27/24 Allergies Allergy/AdvReac Type Severity Reaction Status Date / Time No Known Allergies Allergy Verified 01/10/25 20:10 Review of Systems ROS Other: All systems not noted in ROS Statement are negative. <Kenna Nielsen - Last Filed: 01/10/25 20:30> ROS Other: All systems not noted in ROS Statement are negative. <Dejuan Queen - Last Filed: 01/11/25 04:22> ROS Statement: Those systems with pertinent positive or pertinent negative responses have been documented in the HPI. Past Medical History Past Medical History: Dementia, Memory Impairment Additional Past Medical History / Comment(s): MULTIPLE SCLEROSIS History of Any Multi-Drug Resistant Organisms: None Reported Past Surgical History: Hysterectomy, Tonsillectomy Past Anesthesia/Blood Transfusion Reactions: No Reported Reaction Past Psychological History: No Psychological Hx Reported Smoking Status: Never smoker Past Alcohol Use History: None Reported Past Drug Use History: None Reported - Past Family History Mother Family Medical History: Cancer Additional Family Medical History / Comment(s): HODGKINS LYMPHOMA Father Family Medical History: Myocardial Infarction (VT) <TuanniniKenna - Last Filed: 01/10/25 20:30> General Exam Limitations: no limitations <Kenna Nielsen - Last Filed: 01/10/25 20:30> General appearance: alert, in no apparent distress Head exam: Present: atraumatic, normocephalic, normal inspection Eye exam: Present: normal appearance, PERRL, EOMI. Absent: scleral icterus, conjunctival injection, periorbital swelling ENT exam: Present: normal exam, mucous membranes moist Neck exam: Present: normal inspection. Absent: tenderness, meningismus, lymphadenopathy Respiratory exam: Present: normal lung sounds bilaterally. Absent: respiratory distress, wheezes, rales, rhonchi, stridor Cardiovascular Exam: Present: regular rate, normal rhythm, normal heart sounds. Absent: systolic murmur, diastolic murmur, rubs, gallop, clicks GI/Abdominal exam: Present: soft, normal bowel sounds. Absent: distended, tenderness, guarding, rebound, rigid Extremities exam: Present: normal inspection, full ROM, normal capillary refill. Absent: tenderness, pedal edema, joint swelling, calf tenderness Back exam: Present: normal inspection Neurological exam: Present: alert, oriented X3, CN II-XII intact Psychiatric exam: Present: normal affect, normal mood Skin exam: Present: warm, dry, intact, normal color. Absent: rash <Dejuan Queen - Last Filed: 01/11/25 04:22> - General Exam Comments Initial Comments: Visual Physical Exam Vital signs reviewed General: Well-appearing, nontoxic, no acute distress. Head: Normocephalic, atraumatic Eyes: PERRLA, EOMI ENT: Airway patent Chest: Nonlabored breathing Skin: No visual rash, normal skin tone Neuro: Alert and oriented 3 Musculoskeletal: No gross abnormalities (Stieler,Knena) Course <Dejuan Queen - Last Filed: 01/11/25 04:22> Vital Signs 01/10/25 20:07 Temperature 98.1 F Pulse Rate 59 L Respiratory 18 Rate Blood Pressure 145/76 O2 Sat by Pulse 94 L Oximetry - Reevaluation(s) Reevaluation #1: 01/11/25 04:21 Medical records reviewed (Dejuan Queen) Reevaluation #2: 01/11/25 04:22 Patient symptoms are improved (Dejuan Queen) Reevaluation #3: 01/11/25 04:22 Patient informed of results questions answered (Dejuan Queen) Reevaluation #4: Was pt. sent in by a medical professional or institution (Dr. PA, [facility], urgent care, hospital, or shelter...) When possible be specific @ -no Did you speak to anyone other than the patient for history (EMS, parent, family, police, friend...)? What history was obtained from this source @ -no Did you review nursing and triage notes (agree or disagree)? Why? @ -agree Are old charts reviewed (outside hosp., previous admission, EMS record, old EKG, old radiological studies, urgent care reports/EKG's, shelter records)? Report findings @ -yes Differential Diagnosis (chest pain, altered mental status, abdominal pain women, abdominal pain men, vaginal bleeding, weakness, fever, dyspnea, syncope, headache, dizziness, GI bleed, back pain, seizure, CVA, palpatations, mental health, musculoskeletal)? @ -prior EKG interpreted by me (3pts min.). @ -yes X-rays interpreted by me (1pt min.). @ -yes negative for acute disease CT interpreted by me (1pt min.). @ -no U/S interpreted by me (1pt. min.). @ -no What testing was considered but not performed or refused? (CT, X-rays, U/S, labs)? Why? @ -none What meds were considered but not given or refused? Why? @ -none Did you discuss the management of the patient with other professionals (professionals i.e. DrChristine, PA, [facility], lab, RT, psych nurse, social worker clinical, attorney lawyer, teacher, electorate officer, case filler)? Give summary @ -no Was smoking cessation discussed for >3mins.? @ -no Was critical care preformed (if so, how long)? @ -no Were there social determinants of health that impacted care today? How? (Homelessness, low income, unemployed, alcoholism, drug addiction, transportation, low edu. Level, literacy, decrease access to med. care, [facility], rehab)? @ -none Was there de-escalation of care discussed even if they declined (Discuss DNR or withdrawal of care, Hospice)? DNR status @ -no What co-morbidities impacted this encounter? (DM, HTN, Smoking, COPD, CAD, Cancer, CVA, ARF, Chemo, Hep., AIDS, mental health diagnosis, sleep apnea, morbid obesity)? @ -none Was patient admitted / discharged? Hospital course, mention meds given and route, prescriptions, significant lab abnormalities, going to OR and other pertinent info. @ - Undiagnosed new problem with uncertain prognosis? @ -no Drug Therapy requiring intensive monitoring for toxicity (Heparin, Nitro, Insulin, Cardizem)? @ -no Were any procedures done? @ -no Diagnosis/symptom? @ - Acute, or Chronic, or Acute on Chronic? @ -Acute Uncomplicated (without systemic symptoms) or Complicated (systemic symptoms)? @ -Complicated Side effects of treatment? @ -no Exacerbation, Progression, or Severe Exacerbation? @ -exacerbation Poses a threat to life or bodily function? How? (Chest pain, USA, VT, pneumonia, PE, COPD, DKA, ARF, appy, cholecystitis, CVA, Diverticulitis, Homicidal, Suicidal, threat to staff... and all critical care pts) @ -yes (Dejuan Queen) Reevaluation #5: Differential Back Pain: Strain, zoster, cauda equina syndrome, epidural abscess, vertebral osteomyelitis, discitis, fracture, subluxation, disc herniation, DJD, spinal stenosis, dissection, AAA, pancreatitis, peptic ulcer disease, pyelonephritis, kidney stone, this is not meant to be an all-inclusive list. Differential Abdominal Pain Men: Appendicitis, cholecystitis, diverticulosis, ischemic bowel, pancreatitis, hepatitis, UTI, gastroenteritis, AAA, incarcerated hernia, bowel obstruction, constipation, inflammatory bowel, hepatitis, peptic ulcer disease, splenic infarction, perforated viscus, testicular torsion, this is not meant to be an all-inclusive list (Dejuan Queen) Medical Decision Making <Kenna Nielsen - Last Filed: 01/10/25 20:30> - Radiology Data Radiology results: report reviewed (X-ray LS spine hip and pelvis negative for acute disease), image reviewed <Dejuan Queen - Last Filed: 01/11/25 04:22> - Medical Decision Making I completed the quick note portion of this chart signed Kenna Nielsen PA-C (Kenna Nielsen) 69 female with likely musculoskeletal strain and tenderness in the left side of her flank and back. Normal x-rays here in the ER patient can be discharged home (Dejuan Queen) Disposition <Kenna Nielsen - Last Filed: 01/10/25 20:30> Is patient prescribed a controlled substance at d/c from ED?: No Time of Disposition: 23:30 <Dejuan Queen - Last Filed: 01/11/25 04:22> Clinical Impression: Muscle spasm, Back pain, Weakness Disposition: HOME SELF-CARE Instructions (If sedation given, give patient instructions): Acute Low Back Pain (ED), Musculoskeletal Pain (ED) Referrals: Georgi Hernandez DO [Primary Care Provider] - 1-2 days
--- NOTE | 2025-01-10 22:24 | XR ---
EXAMINATION TYPE: XR Hip LT and AP Pelvis DATE OF EXAM: 01/10/2025 8:52 PM COMPARISON: None. CLINICAL INDICATION: Female, 69 years old with history of pain, TECHNIQUE: XR Hip LT and AP Pelvis view(s) obtained. FINDINGS: Femoral heads articular acetabulum. Symphysis pubis and sacroiliac joints are normal. Phlebolith left hemipelvis . No acute fracture or dislocation evident. Left femoral head articulates with the acetabulum. No acute fracture identified at the left hip. IMPRESSION: 1. No acute osseous abnormalities left hip [facility], , 01/10/2025 10:21 PM
--- NOTE | 2025-01-10 22:27 | XR ---
EXAMINATION TYPE: XR lumbar spine 2 or 3V DATE OF EXAM: 01/10/2025 8:52 PM COMPARISON: None. CLINICAL INDICATION: Female, 69 years old with history of pain, pain TECHNIQUE: 3 view(s) obtained. FINDINGS: There are 5 lumbar-type vertebral bodies. Pedicles are intact. Disc heights are preserved. Vertebral body heights are preserved. IMPRESSION: 1. No acute osseous abnormality lumbar spine [facility], , 01/10/2025 10:25 PM
[2025-01-10] MEDS: KETOROLAC 15 MG/ML 1 ML VIAL IVP STA (23:55)
[2025-01-10] MEDS: traMADol 50 MG STARTER PACK 3 TAB BTL PO STA (23:56)
[2025-01-10] MEDS: traMADol 50 MG TAB PO STA (23:56)
[2025-01-10] MEDS: MORPHINE SULFATE 4 MG/ML SYRINGE IVP STA (23:56)
== END 2025-01-11 00:05 | disposition home or self-care (01) ==
LOC: EC 20:05
DX: R53.1 Weakness (principal); M62.838 Other muscle spasm; M54.9 Dorsalgia, unspecified
CPT/HCPCS: 72100; 73502; 99285; 96374; 96375; J2270; J1885